=== PATIENT | male | born 1950 | race Caucasian/White ===

== ENCOUNTER → 2017-11-19 | Outpatient (CLI) | payer MEDICARE ==
--- NOTE | 2017-11-19 16:50 | XR ---
EXAMINATION: XR chest 2V DATE AND TIME: 11/19/2017 4:41 PM ORDERING PROVIDER: Ashlee Shaffer CLINICAL INDICATION: [id number] SOB TECHNIQUE: PA and lateral COMPARISON: 07/01/2012 DESCRIPTION: The overlying soft tissues are prominent and this limits accuracy, particularly over the lung bases. The lungs are clear. The pleural spaces are negative. The cardiac silhouette is not enla rged. The mediastinal and pleural silhouettes are unremarkable. The skeletal structures are intact wi thout focal findings. No acute soft tissue findings. IMPRESSION: NO ACUTE PROCESS.
== END | disposition home or self-care (01) ==
LOC: RADXRYALE 16:20
PROVIDERS: ATTEND Physician Assistant Medical
DX: R06.02 Shortness of breath (principal)
CPT/HCPCS: 71046

== ENCOUNTER → 2018-05-14 | Outpatient (CLI) | payer MEDICARE ==
--- NOTE | 2018-05-15 08:42 | XR ---
Abdomen HISTORY: Renal stones frontal view of the abdomen on 2 images correlated to prior abdomen 01/18/2013 Patient is post lap band. Lung bases are clear. Multiple calcifications are present within the pelvis as on prior. Sensitivity of the exam may be limited by patient body habitus, bowel gas. IMPRESSION: Indeterminate calcifications. Postop changes.
== END ==
LOC: RADXRMAIN 16:09
PROVIDERS: ATTEND Urology
DX: N20.2 Calculus of kidney with calculus of ureter (principal); Z98.890 Other specified postprocedural states
CPT/HCPCS: 74018

== ENCOUNTER → 2018-10-12 | Outpatient (CLI) | payer MEDICARE ==
[2018-10-12 20:03] LABS: ALT 49 U/L (10-49); AST 34 U/L (14-35); African American GFR (CKD) 72.6 (60.0-200.0); Albumin/Globulin Ratio 1.62 (1.60-3.17); Alkaline Phosphatase 141 U/L (41-126); BUN/Creat Ratio 11.67 Ratio (12.00-20.00); Calcium 9.8 mg/dL (8.7-10.3); Carbon Dioxide 21.1 mmol/L (21.6-31.8); Chloride 108 mmol/L (96-109); Cholesterol 217 mg/dL (0-200); Globulin 2.6 g/dL (1.6-3.3); Glucose 306 mg/dL (70-110); Potassium 4.5 mmol/L (3.5-5.5); Sodium 139 mmol/L (135-145); Total Bilirubin 0.5 mg/dL (0.3-1.2); Total Protein 6.8 g/dL (6.2-8.2)
== END | disposition home or self-care (01) ==
LOC: LABWHC1 13:34
PROVIDERS: ATTEND Internal Medicine Endocrinology, Diabetes & Metabolism
DX: E11.65 Type 2 diabetes mellitus with hyperglycemia (principal)
CPT/HCPCS: 36415; 80053; 80061; 82043; 82570; 84443

== ENCOUNTER → 2018-12-25 | Outpatient (CLI) | payer MEDICARE ==
--- NOTE | 2018-12-26 14:25 | XR ---
EXAMINATION TYPE: XR knee complete bilateral DATE OF EXAM: 12/25/2018 COMPARISON: Right knee 08/17/2014 HISTORY: M 25.561, M 25.562, M 25.551 TECHNIQUE: Three-view bilateral knees each FINDINGS: Right knee: There is narrowing of the medial compartment joint space. Small medial tibial p lateau spur is present. Medial femoral condylar spurring is present. Left knee: No acute fractures evident. No joint effusion is evident. Joint spaces appear preserved. IMPRESSION: 1. Mild osteoarthritic degenerative change medial compartment right knee. This is progressive. 2. Left knee is essentially within normal limits.
--- NOTE | 2018-12-26 14:26 | XR ---
EXAMINATION TYPE: XR Hip Complete RT DATE OF EXAM: 12/25/2018 COMPARISON: None HISTORY: Right hip pain TECHNIQUE: 2 view right hip FINDINGS: Cam deformity is evident. There is loss of the joint space. The femoral head articulates wi th the acetabulum. Some acetabular spurring is noted. IMPRESSION: 1. Moderate osteoarthritic degenerative change right hip. 2. Cam deformity of the right hip.
== END | disposition home or self-care (01) ==
LOC: RADXRYALE 16:31
PROVIDERS: ATTEND Family Medicine
DX: M17.0 Bilateral primary osteoarthritis of knee (principal); M16.11 Unilateral primary osteoarthritis, right hip; M21.851 Other specified acquired deformities of right thigh
CPT/HCPCS: 73502

== ENCOUNTER → 2019-01-12 | Outpatient (CLI) | payer MEDICARE ==
[2019-01-12 15:51] VITALS: BP 145/84; PULSE 70; RESP 16; TEMP 98.2
--- NOTE | 2019-01-12 17:35 | P.BASOAP ---
Subjective Progress Note Date: 01/12/19 Principal diagnosis: Morbid obesity Patient here today to discuss band adjustment. Patient has suffered with his weight since his last visit which was many years ago. Currently weight in the 350 range. He was is having is 500 at one point. Has episodes of dysphagia 1-2 times per week. Feels appropriately tight. No significant hunger issues. Patient being worked up for occult infection. Has intermittent episodes of significant elevation of his blood sugar. Thinks it may be dental in origin. Objective - Vital Signs Vital signs: Vital Signs Temp 98.2 F 01/12/19 15:48 Pulse 70 01/12/19 15:48 Resp 16 01/12/19 15:48 BP 145/84 01/12/19 15:48 Pulse Ox Intake & Output 01/11/19 01/12/19 01/12/19 18:59 06:59 18:59 Weight 159.665 kg - Exam Abdomen: Soft, nondistended, large pannus, small scarlike areas at the pannus consistent with mild panniculitis Assessment/Plan (1) Morbid obesity Narrative/Plan: Patient will known to our service. Would like to have his band evaluated. No plans for band adjustment given his intermittent episodes of dysphagia. Patient not interested in having the band loosened. Will check esophagogram. Patient will consider alternative surgical procedures in the interim. Plan: Date: 01/12/19 Initial Weight: Initial BMI: Current Weight: 159.665 kg Current BMI: Type of Surgery: Total Volume in Band: Previous Volume: Volume Removed: Volume Added: Band Size:
== END ==
LOC: BARWHC3 14:54
PROVIDERS: ATTEND Surgery
DX: E66.01 Morbid (severe) obesity due to excess calories (principal); Z68.43 Body mass index [BMI] 50.0-59.9, adult
CPT/HCPCS: 99211

== ENCOUNTER 2019-02-22 17:21 | Emergency (ER) | payer MEDICARE ==
[2019-02-22 17:38] VITALS: BP 136/91; TEMP 97.3
[2019-02-22] MEDS ORDERED: HYDROcodone/APAP 5-325MG 1 EACH TAB PO STA (18:00)
[2019-02-22] MEDS ORDERED: IPRATROPIUM-ALBUTEROL 3 ML NEB INHALATION STA (18:00)
--- NOTE | 2019-02-22 18:01 | ED ---
Fall HPI - General Chief Complaint: Fall Stated Complaint: fell downstairs Time Seen by Provider: 02/22/19 17:24 Source: EMS, RN notes reviewed, old records reviewed Mode of arrival: EMS Limitations: no limitations - History of Present Illness Initial Comments: This is a 68-year-old male the ER status post fall trip and fall on stairs landing on his back he did hit his head. Patient fell backwards and landed is brought in again did hit his head. His upper back area as well. Patient later the ground for a while maybe like an hour and was able to get up and move around. Patient comes in the ER with his family member, he is able to stand and bear weight he is significantly short of breath and feels like he's been doing with a recent episode of pneumonia or bronchitis. MD Complaint: fall -: hour(s) Fall From: standing, down stairs (#) (10) When Fall Occurred: 1-3 hours [employer] Fall Witnessed: yes, by family Place Fall Occurred: work Loss of Consciousness: none Prolonged Down Time?: no Symptoms Prior to Fall: none Location: head, back, pelvis, buttocks Severity: moderate Severity scale (1-10): 4 Quality: aching Context: tripped/slipped Associated Symptoms: denies - Related Data Home Medications Medication Instructions Recorded Confirmed Albuterol Sulfate [Proair Hfa] 2 puff INHALATION Q6HR PRN 05/04/15 01/12/19 Allopurinol [Zyloprim] 100 mg PO HS 05/04/15 01/12/19 Enalapril [Vasotec] 20 mg PO BID 05/04/15 01/12/19 Insulin NPH Human Isophane 0 unit SQ AC-TID PRN 05/04/15 01/12/19 [NovoLIN N] Insulin Regular, Human [NovoLIN R] 0 unit SQ AC-TID PRN 05/04/15 01/12/19 Insuln Asp Prt/Insulin Aspart 0 unit SQ AC-TID PRN 05/04/15 01/12/19 [NovoLOG MIX 70-30 VIAL] metFORMIN HCL 500 mg PO BID 05/04/15 01/12/19 Allergies Allergy/AdvReac Type Severity Reaction Status Date / Time levofloxacin [From Levaquin] Allergy Unknown Verified 01/12/19 15:58 Penicillins Allergy Rash/Hives Verified 01/12/19 15:58 Review of Systems ROS Statement: Those systems with pertinent positive or pertinent negative responses have been documented in the HPI. ROS Other: All systems not noted in ROS Statement are negative. Past Medical History Past Medical History: Diabetes Mellitus, Hypertension History of Any Multi-Drug Resistant Organisms: None Reported Past Surgical History: No Surgical Hx Reported Past Psychological History: No Psychological Hx Reported Smoking Status: Former smoker Past Alcohol Use History: None Reported Past Drug Use History: None Reported General Exam Limitations: no limitations General appearance: alert, in no apparent distress Head exam: Present: atraumatic, normocephalic, normal inspection Eye exam: Present: normal appearance, PERRL, EOMI. Absent: scleral icterus, conjunctival injection, periorbital swelling ENT exam: Present: normal exam, mucous membranes moist Neck exam: Present: normal inspection. Absent: tenderness, meningismus, lymphadenopathy Respiratory exam: Present: normal lung sounds bilaterally. Absent: respiratory distress, wheezes, rales, rhonchi, stridor Cardiovascular Exam: Present: regular rate, normal rhythm, normal heart sounds. Absent: systolic murmur, diastolic murmur, rubs, gallop, clicks GI/Abdominal exam: Present: soft, normal bowel sounds. Absent: distended, tenderness, guarding, rebound, rigid Extremities exam: Present: normal inspection, full ROM, normal capillary refill. Absent: tenderness, pedal edema, joint swelling, calf tenderness Back exam: Present: normal inspection Neurological exam: Present: alert, oriented X3, CN II-XII intact Psychiatric exam: Present: normal affect, normal mood Skin exam: Present: warm, dry, intact, normal color. Absent: rash Course Vital Signs 02/22/19 02/22/19 02/22/19 17:35 18:36 18:48 Temperature 97.3 F L Pulse Rate 83 73 75 Respiratory 16 16 16 Rate Blood Pressure 136/91 O2 Sat by Pulse 98 Oximetry - Reevaluation(s) Reevaluation #1: 02/22/19 18:11 Medical records reviewed Reevaluation #2: 02/22/19 20:07 patient has better pain control, able to stand and get dressed and now abole to ambulate. ok for discharge Medical Decision Making - Medical Decision Making 68 male SP slip and fall, back contusion, will discharge home, able to ambluate. No neuro deficits Disposition Clinical Impression: Fall, Morbid obesity, Severe back pain, Back contusion Disposition: HOME SELF-CARE Condition: Good Instructions (If sedation given, give patient instructions): Fall Prevention for Older Adults (ED), Back Pain (ED) Is patient prescribed a controlled substance at d/c from ED?: No Referrals: Jt Abbott DO [Primary Care Provider] - 1-2 days
[2019-02-22] MEDS ORDERED: MORPHINE SULFATE 4 MG/ML SYRINGE IM STA (18:26)
--- NOTE | 2019-02-22 19:36 | XR ---
EXAMINATION TYPE: XR chest 2V DATE OF EXAM: 02/22/2019 COMPARISON: NONE TECHNIQUE: PA and lateral views submitted. HISTORY: Pain FINDINGS: Technique limits the exam. Left lower lobe consolidation suggested. Hypertrophic and degenerative dario nges spine. Heart is enlarged. No sizable pneumothorax. IMPRESSION: 1. Left basilar atelectasis favored over pneumonia correlate clinically. 2. Cardiomegaly
--- NOTE | 2019-02-22 19:38 | XR ---
EXAM TYPE: LUMBAR SPINE X RAY SERIES COMPARISON: NONE HISTORY: Pain TECHNIQUE: 4 views are submitted. FINDINGS: Alignment is anatomic. The pedicles are intact. The transverse processes are intact. There is no s pondylolysis or spondylolisthesis. Hypertrophic changes are seen and there is multilevel mild degene rative disc disease with most marked findings at L5-S1. Facet arthropathy L5-S1. Arthropathy of the h ips greater on the right. LAP-BAND catheter noted. IMPRESSION: 1. Multilevel degenerative disc disease and hypertrophic changes. No compression deformities..
--- NOTE | 2019-02-22 19:39 | XR ---
EXAMINATION TYPE: XR pelvis AP view DATE OF EXAM: 02/22/2019 COMPARISON: NONE HISTORY: Pain Severe arthropathy of the right hip. Moderate to severe arthropathy left hip. SI joints symmetric. Vi sualized osseous structures grossly intact. IMPRESSION: 1. No acute fracture.
--- NOTE | 2019-02-22 19:45 | CT ---
EXAMINATION TYPE: CT brain seheba galeano DATE OF EXAM: 02/22/2019 COMPARISON: None HISTORY: Fall today with head and neck pain. CT DLP: 1990.3 mGycm Automated exposure control for dose reduction was used. TECHNIQUE: CT scan of the head and cervical spine are performed without contrast. FINDINGS: There is no acute intracranial hemorrhage, mass effect, or midline shift identified. The ventricles and sulci are within normal limits in size. Changes of chronic sinusitis noted. Intracran ial atherosclerotic changes are seen. Assessment spinal canal limited technique and resolution. There is multilevel degenerative disc disea se with hypertrophic spurring and posterior spondylosis with the most marked findings at C5-6 and C6- C7. Multilevel foraminal encroachment seen. No Canal stenosis not excluded. No acute fracture. IMPRESSION: 1. There is no acute fracture or dislocation evident in the cervical spine. 2. No acute intracranial hemorrhage, mass effect, or midline shift is seen.
[2019-02-22 20:15] VITALS: PULSE 78; RESP 18
== END 2019-02-22 20:26 | disposition home or self-care (01) ==
LOC: EC 17:21
DX: S30.0XXA Contusion of lower back and pelvis, initial encounter (principal); S20.229A Contusion of unspecified back wall of thorax, initial encounter; E66.01 Morbid (severe) obesity due to excess calories; S09.90XA Unspecified injury of head, initial encounter; R06.02 Shortness of breath; E11.9 Type 2 diabetes mellitus without complications; I10 Essential (primary) hypertension; Z87.891 Personal history of nicotine dependence; Z88.0 Allergy status to penicillin; Z88.1 Allergy status to other antibiotic agents; Z79.4 Long term (current) use of insulin; Z79.899 Other long term (current) drug therapy; Z68.42 Body mass index [BMI] 45.0-49.9, adult; W10.9XXA Fall (on) (from) unspecified stairs and steps, initial encounter; Y92.69 Other specified industrial and construction area as the place of occurrence of the external cause
CPT/HCPCS: 94640; 72110; 72170; 71046; 72125; 70450; 99284; 96372; J2270

== ENCOUNTER → 2019-04-05 | Outpatient (CLI) | payer MEDICARE ==
--- NOTE | 2019-04-05 14:47 | XR ---
2 view abdomen HISTORY: Abdominal pain and constipation 2 views the abdomen on 3 images And correlation to prior abdomen 05/14/2018 There is a lap band in place. No evident pneumoperitoneum. There are air-fluid levels without bowel d istention. Degenerative disc changes are noted in the visualized spine. Probable vascular calcificati ons within the pelvis. Osteoarthritic changes are noted in the hips. Correlate to exclude femoral zahraa tabular impingement. Impression: Correlate for ileus or enteritis. Additional findings above.
== END | disposition home or self-care (01) ==
LOC: RADXRYALE 11:31
PROVIDERS: ATTEND Physician Assistant Medical
DX: K59.00 Constipation, unspecified (principal); R10.84 Generalized abdominal pain; Z98.84 Bariatric surgery status
CPT/HCPCS: 74019

== ENCOUNTER → 2019-04-05 | Outpatient (CLI) | payer MEDICARE ==
--- NOTE | 2019-04-05 17:40 | CT ---
EXAMINATION TYPE: CT abdomen pelvis wo/w con DATE OF EXAM: 04/05/2019 COMPARISON: 12/06/2011 HISTORY: abdominal pain and constipation CT DLP: 7317.5 mGycm Automated exposure control for dose reduction was used. CONTRAST: Performed with IV Contrast, patient injected with 100 mL of Isovue 300. The lung bases are clear of infiltrate. There is no pleural effusion. There is gastric sleeve at the gastric fundus. Liver spleen pancreas gallbladder appear normal. Bile ducts are not dilated. There is no adrenal mass. Kidneys have normal size and contour. There is 2 cm cortical cyst lower rashida e left kidney. Ureters are not dilated. There is no retroperitoneal adenopathy. Bladder distends smoo thly. There is no inguinal hernia. There are several diverticula in the sigmoid colon. There is no ev idence of a pelvic mass. The appendix appears normal. There is no mesenteric edema. There is no ascit es or free air. There is no hydronephrosis. There is 10% anterior wedging of L1 vertebra that appears old. Bony pelvis is intact. IMPRESSION: No renal stone or obstruction. There is clearing of the large calculus at the left renal pelvis izabel red to old exam. Normal appendix. No evidence of constipation. Mild sigmoid diverticulosis.
== END | disposition home or self-care (01) ==
LOC: RADCTMAIN 15:02
PROVIDERS: ATTEND Physician Assistant Medical
DX: K57.30 Diverticulosis of large intestine without perforation or abscess without bleeding (principal); N20.0 Calculus of kidney
CPT/HCPCS: 82565; 84520; 74178; 36415; Q9967

== ENCOUNTER → 2019-07-08 | Outpatient (CLI) | payer MEDICARE ==
--- NOTE | 2019-07-08 16:59 | CT ---
EXAMINATION TYPE: CT hip RT wo con DATE OF EXAM: 07/08/2019 COMPARISON: Right hip x-rays dated 12/25/[address] abdomen pelvis dated 04/05/2019 HISTORY: RT hip pain. Pt states several past traumas to RT hip CT DLP: 879 mGycm Automated exposure control for dose reduction was used. TECHNIQUE: Contiguous axial CT slices of the right hip were obtained and soft tissue and bone algorit hm. Axial and sagittal images were reformatted. 3-D images of the right hip were created on a [employer] workstation and submitted for review. FINDINGS: There is a subtle cam deformity of the lateral femoral head neck junction marked on axial s eries 3 image 47. There is cephalad narrowing of the femoral acetabular joint with mild opposing surf zahraa sclerosis. There are small marginal osteophytes of both the acetabulum and femur. Subtle punctate subchondral cysts are present of the acetabular sourcil. No acute displaced rib fracture is seen. Os seous mineralization is within normal limits for the patient's age. Moderate atherosclerosis of the right common iliac artery and its branches is seen. Hip girdle muscul ature appears grossly unremarkable on CT. Labrum is not visualized on CT. IMPRESSION: 1. Moderate right femoral acetabular arthropathy with cephalad narrowing of the joint space, opposing surface sclerosis, few subchondral cysts, and marginal osteophytes. This may be posttraumatic arthro kelly given the patient's history. 2. Very subtle cam deformity of the lateral femoral head neck junction, which can predispose this pat ient to femoral acetabular impingement syndrome. 3. Moderate atherosclerosis of the right common iliac artery and its branches.
== END | disposition home or self-care (01) ==
LOC: RADCTMAIN 15:09
PROVIDERS: ATTEND Orthopaedic Surgery
DX: M12.851 Other specific arthropathies, not elsewhere classified, right hip (principal); M25.851 Other specified joint disorders, right hip; M24.151 Other articular cartilage disorders, right hip; M25.751 Osteophyte, right hip; M21.851 Other specified acquired deformities of right thigh; I70.8 Atherosclerosis of other arteries; E78.5 Hyperlipidemia, unspecified; I10 Essential (primary) hypertension

== ENCOUNTER 2019-12-21 16:32 | Inpatient (IN) | payer MEDICARE ==
[2019-12-21] MEDS ORDERED: ASPIRIN 81 MG PO STA (16:59)
[2019-12-21] MEDS ORDERED: IPRATROPIUM-ALBUTEROL 3 ML NEB INHALATION STA (17:00)
[2019-12-21] MEDS ORDERED: ACETAMINOPHEN TAB 500 MG TAB PO STA (17:00)
[2019-12-21] MEDS ORDERED: cefTRIAXone IN SWFI 1,000 MG/10 ML SYRINGE IVP STA (17:01)
[2019-12-21 17:42] LABS: Basophils # (A) 0.1 k/uL (0-0.2); Basophils % (A) 0 %; Eosinophils # (A) 0.3 k/uL (0-0.7); Eosinophils % (A) 1 %; HGB 13.7 gm/dL (13.0-17.5); Lymphocytes # (A) 0.8 k/uL (1.0-4.8); Lymphocytes % (A) 3 %; MCH 29.1 pg (25.0-35.0); MCHC 32.7 g/dL (31.0-37.0); Mean Platelet Volume 7.3; Monocytes % (A) 5 %; Neutrophils # (A) 20.1 k/uL (1.3-7.7); Neutrophils % (A) 90 %; Platelet Count 208 k/uL (150-450); RBC 4.72 m/uL (4.30-5.90); RDW 13.6 % (11.5-15.5); WBC 22.5 k/uL (3.8-10.6)
[2019-12-21 17:55] LABS: Calcium 9.5 mg/dL (8.4-10.2); Magnesium 1.6 mg/dL (1.6-2.3); Potassium 4.4 mmol/L (3.5-5.1); Total Bilirubin 0.8 mg/dL (0.2-1.3); Total Protein 6.9 g/dL (6.3-8.2)
--- NOTE | 2019-12-21 18:12 | XR ---
EXAMINATION TYPE: XR chest 2V DATE OF EXAM: 12/21/2019 COMPARISON: 06/28/2019 HISTORY: Short of breath TECHNIQUE: 2 views FINDINGS: There is no heart failure nor confluent pneumonic infiltrate. Costophrenic angles are clear . There are no hilar masses. Heart size is normal. Lung markings are slightly increased. IMPRESSION: No active cardiopulmonary disease. No adverse change compared to old exam. Lung markings increased slightly compared to old exam but no heart failure.
[2019-12-21] MEDS: SODIUM CHLORIDE 0.9% 1,000 ML IV SCH (18:17)
[2019-12-21] MEDS ORDERED: SODIUM CHLORIDE 0.9% 1,000 ML IV ONE (18:32)
--- NOTE | 2019-12-21 19:05 | ED ---
General Adult HPI - General Source: patient, RN notes reviewed, old records reviewed Mode of arrival: ambulatory Limitations: no limitations <Keshawn Chiu - Last Filed: 12/21/19 19:11> <Hunter Layne - Last Filed: 12/21/19 19:34> - General Chief complaint: Weakness Stated complaint: Dizziness Time Seen by Provider: 12/21/19 16:47 - History of Present Illness Initial comments: 69-year-old male patient presents to ED with chief complaint of fevers and chills productive cough. Patient reports that he also has some redness to the left lower leg. Patient reports this started within the last 24 hours. He reports that a few weeks ago he had a bug bite to his left leg. He denies ever seeing any sort of insect or tick on him. He reports that he had some redness of his primary care provider treated with an antibiotic. Patient reports that the redness has returned now. Patient reports that he's also been having some dysuria. He denies any concern for STI's. Denies any other acute complaints. Systemic: Pt denies fatigue, rash. Pt denies weakness, night sweats, weight loss. Neuro: Pt denies headache, visual disturbances, syncope or pre-syncope. HEENT: Pt denies ocular discharge or irritation, otalgia, rhinorrhea, pharyngitis or notable lymphadenopathy. Cardiopulmonary: Pt denies chest pain, heart palpitations, dyspnea on exertion. Abdominal/GI: Pt denies abdominal pain, n/v/d. : Denies new onset urinary or bowel incontinence. MSK: Pt denies myalgia, loss of strength or function in extremities. Neuro: Pt denies new onset weakness, paresthesias. (Keshawn Chiu) - Related Data Home Medications Medication Instructions Recorded Confirmed Albuterol Sulfate [Proair Hfa] 2 puff INHALATION Q6HR PRN 05/04/15 01/12/19 Allopurinol [Zyloprim] 100 mg PO HS 05/04/15 01/12/19 Enalapril [Vasotec] 20 mg PO BID 05/04/15 01/12/19 Insulin NPH Human Isophane 0 unit SQ AC-TID PRN 05/04/15 01/12/19 [NovoLIN N] Insulin Regular, Human [NovoLIN R] 0 unit SQ AC-TID PRN 05/04/15 01/12/19 Insuln Asp Prt/Insulin Aspart 0 unit SQ AC-TID PRN 05/04/15 01/12/19 [NovoLOG MIX 70-30 VIAL] metFORMIN HCL 500 mg PO BID 05/04/15 01/12/19 Allergies Allergy/AdvReac Type Severity Reaction Status Date / Time levofloxacin [From Levaquin] Allergy Unknown Verified 01/12/19 15:58 Penicillins Allergy Rash/Hives Verified 01/12/19 15:58 Review of Systems ROS Other: All systems not noted in ROS Statement are negative. <Keshawn Chiu - Last Filed: 12/21/19 19:11> ROS Other: All systems not noted in ROS Statement are negative. <Hunter Layne - Last Filed: 12/21/19 19:34> ROS Statement: Those systems with pertinent positive or pertinent negative responses have been documented in the HPI. Past Medical History Past Medical History: Diabetes Mellitus, Hypertension History of Any Multi-Drug Resistant Organisms: None Reported Past Surgical History: No Surgical Hx Reported Past Psychological History: No Psychological Hx Reported Smoking Status: Never smoker Past Alcohol Use History: None Reported Past Drug Use History: None Reported <Keshawn Chiu - Last Filed: 12/21/19 19:11> General Exam Limitations: no limitations <Keshawn Chiu - Last Filed: 12/21/19 19:11> - General Exam Comments Initial Comments: Constitutional: NAD, AOX3, Pt has pleasant affect. HEENT: NC/AT, trachea midline, neck supple, no lymphadenopathy. External ears appear normal, without discharge. Mucous membranes moist. Eyes PERRLA, EOM i ntact. There is no scleral icterus. No pallor noted. Cardiopulmonary: RRR, no murmurs, rubs or gallops, no JVD noted. Mild wheezing noted in anterior lung corbin. No peripheral edema. Abdominal exam: Abdomen soft and non-distended. Abdomen non-tender to palpation in all 4 quadrants. Bowel sounds active in LLQ. No hepatosplenomegaly. No ecchymosis Neuro: CN II-XII grossly intact. No nuchal rigidity. No raccon eyes, no muñoz sign, no hemotympanum. No cervical spinal tenderness. MSK: Mild amount of erythema to left anterior lower extremity. No posterior calf tenderness bilaterally, homans sign negative bilaterally. Posterior tibialis and radial pulse +2 bilaterally. Sensation intact in upper and lower extremities. Full active ROM in upper and lower extremities, 5/5 stregnth. (Keshawn Chiu) Course <Hunter Layne - Last Filed: 12/21/19 19:34> Vital Signs 12/21/19 12/21/19 12/21/19 16:41 17:49 17:55 Temperature 101.1 F H Pulse Rate 100 82 85 Respiratory 20 18 18 Rate Blood Pressure 118/55 O2 Sat by Pulse 99 Oximetry 12/21/19 18:48 Temperature Pulse Rate Respiratory 20 Rate Blood Pressure O2 Sat by Pulse Oximetry - Reevaluation(s) Reevaluation #1: 12/21/19 19:34 Patient does meet sepsis criteria diagnosed in 0. Blood culture and lactic acid and IV antibiotics will be ordered. (Hunter Layne) Medical Decision Making - Lab Data Result diagrams: 12/21/19 17:23 12/21/19 17:23 - EKG Data -: EKG Interpreted by Me (and Dr. Layne ) <Keshawn Chiu - Last Filed: 12/21/19 19:11> - Lab Data Result diagrams: 12/21/19 17:23 12/21/19 17:23 - Radiology Data Radiology results: image reviewed (Chest x-ray shows slight increased lung markings.) <Hunter Layne - Last Filed: 12/21/19 19:34> - Medical Decision Making 69 year old male patient presents to ED for evaluation of fever, cough, congestion, dysuria, lower extremity cellulitis. symptoms mostly within the last 24 hours. Patient signed out to Dr. Layne pending final disposition. (Keshawn Chiu) Patient reevaluated by myself, Dr. Layne. I agree with PA findings. This includes diagnostic interpretation and treatment plan. Lungs with wheezing and rhonchi. Patient does have cellulitis left anterior leg. Patient is updated on plan. Dr. Ly has been paged for admission covering for Dr. Vinny Baker. (Hunter Layne) - Lab Data Lab Results 12/21/19 12/21/19 12/21/19 Range/Units 17:23 17:23 17:23 WBC 22.5 H (3.8-10.6) k/uL RBC 4.72 (4.30-5.90) m/uL Hgb 13.7 (13.0-17.5) gm/dL Hct 42.0 (39.0-53.0) % MCV 89.0 (80.0-100.0) fL MCH 29.1 (25.0-35.0) pg MCHC 32.7 (31.0-37.0) g/dL RDW 13.6 (11.5-15.5) % Plt Count 208 (150-450) k/uL Neutrophils % 90 % Lymphocytes % 3 % Monocytes % 5 % Eosinophils % 1 % Basophils % 0 % Neutrophils # 20.1 H (1.3-7.7) k/uL Lymphocytes # 0.8 L (1.0-4.8) k/uL Monocytes # 1.0 (0-1.0) k/uL Eosinophils # 0.3 (0-0.7) k/uL Basophils # 0.1 (0-0.2) k/uL Sodium 136 L (137-145) mmol/L Potassium 4.4 (3.5-5.1) mmol/L Chloride 103 (98-107) mmol/L Carbon Dioxide 24 (22-30) mmol/L Anion Gap 9 mmol/L BUN 18 (9-20) mg/dL Creatinine 1.04 (0.66-1.25) mg/dL Est GFR (CKD-EPI)AfAm 86 (>60 ml/min/1.73 sqM) Est GFR (CKD-EPI)NonAf 74 (>60 ml/min/1.73 sqM) Glucose 210 H (74-99) mg/dL Plasma Lactic Acid Harvinder 2.5 H* (0.7-2.0) mmol/L Calcium 9.5 (8.4-10.2) mg/dL Magnesium 1.6 (1.6-2.3) mg/dL Total Bilirubin 0.8 (0.2-1.3) mg/dL AST 36 (17-59) U/L ALT 42 (4-49) U/L Alkaline Phosphatase 116 (38-126) U/L Troponin I (0.000-0.034) ng/mL Total Protein 6.9 (6.3-8.2) g/dL Albumin 4.0 (3.5-5.0) g/dL Urine Color Urine Appearance (Clear) Urine pH (5.0-8.0) Ur Specific [place] (1.001-1.035) Urine Protein (Negative) Urine Glucose (UA) (Negative) Urine Ketones (Negative) Urine Blood (Negative) Urine Nitrite (Negative) Urine Bilirubin (Negative) Urine Urobilinogen (<2.0) mg/dL Ur Leukocyte Esterase (Negative) Urine RBC (0-5) /hpf Urine WBC (0-5) /hpf Ur Squamous Epith Cells (0-4) /hpf Urine Bacteria (None) /hpf Hyaline Casts (0-2) /lpf Urine Mucus (None) /hpf 12/21/19 12/21/19 Range/Units 17:23 17:32 WBC (3.8-10.6) k/uL RBC (4.30-5.90) m/uL Hgb (13.0-17.5) gm/dL Hct (39.0-53.0) % MCV (80.0-100.0) fL MCH (25.0-35.0) pg MCHC (31.0-37.0) g/dL RDW (11.5-15.5) % Plt Count (150-450) k/uL Neutrophils % % Lymphocytes % % Monocytes % % Eosinophils % % Basophils % % Neutrophils # (1.3-7.7) k/uL Lymphocytes # (1.0-4.8) k/uL Monocytes # (0-1.0) k/uL Eosinophils # (0-0.7) k/uL Basophils # (0-0.2) k/uL Sodium (137-145) mmol/L Potassium (3.5-5.1) mmol/L Chloride (98-107) mmol/L Carbon Dioxide (22-30) mmol/L Anion Gap mmol/L BUN (9-20) mg/dL Creatinine (0.66-1.25) mg/dL Est GFR (CKD-EPI)AfAm (>60 ml/min/1.73 sqM) Est GFR (CKD-EPI)NonAf (>60 ml/min/1.73 sqM) Glucose (74-99) mg/dL Plasma Lactic Acid Harvinder (0.7-2.0) mmol/L Calcium (8.4-10.2) mg/dL Magnesium (1.6-2.3) mg/dL Total Bilirubin (0.2-1.3) mg/dL AST (17-59) U/L ALT (4-49) U/L Alkaline Phosphatase (38-126) U/L Troponin I <0.012 (0.000-0.034) ng/mL Total Protein (6.3-8.2) g/dL Albumin (3.5-5.0) g/dL Urine Color Dark Yellow Urine Appearance Cloudy (Clear) Urine pH 5.0 (5.0-8.0) Ur Specific [place] 1.021 (1.001-1.035) Urine Protein 1+ H (Negative) Urine Glucose (UA) Negative (Negative) Urine Ketones Trace H (Negative) Urine Blood Negative (Negative) Urine Nitrite Negative (Negative) Urine Bilirubin Negative (Negative) Urine Urobilinogen <2.0 (<2.0) mg/dL Ur Leukocyte Esterase Negative (Negative) Urine RBC 2 (0-5) /hpf Urine WBC 2 (0-5) /hpf Ur Squamous Epith Cells <1 (0-4) /hpf Urine Bacteria Rare H (None) /hpf Hyaline Casts 10 H (0-2) /lpf Urine Mucus Few H (None) /hpf - EKG Data EKG Comments: Ventricular rate 106, purulent full 136, QRS 148, QT/QTC 392/520, sinus tachycardia, right bundle branch block. No concern for acute ischemia at this time. (Keshawn Chiu) Disposition <Keshawn Chiu - Last Filed: 12/21/19 19:11> Is patient prescribed a controlled substance at d/c from ED?: No Decision Time: 19:32 <Hunter Layne - Last Filed: 12/21/19 19:34> Clinical Impression: COPD (chronic obstructive pulmonary disease), Sepsis, Cellulitis Disposition: ADMITTED IP TO THIS HOSP Condition: Serious Referrals: Jt Abbott DO [Primary Care Provider] - 1-2 days
[2019-12-21 19:21] LABS: Appearance,Urine Cloudy (Clear); Bacteria,Urine Rare /hpf; Bilirubin,Urine Negative (Negative); Blood,Urine Negative (Negative); Color,Urine Dark Yellow; Glucose,Urine (UA) Negative (Negative); Hyaline Casts,Urine 10 /lpf (0-2); Ketones,Urine Trace (Negative); Leukocyte Esterase,Urine Negative (Negative); Mucus,Urine Few /hpf; Nitrite,Urine Negative (Negative); Protein,Urine 1+ (Negative); RBC,Urine 2 /hpf (0-5); Specific Gravity,Urine 1.021 (1.001-1.035); Squamous Epithelial Cell,Urine <1 /hpf (0-4); Urobilinogen,Urine <2.0 mg/dL (<2.0); WBC,Urine 2 /hpf (0-5)
[2019-12-21] MEDS ORDERED: AZITHROMYCIN 500 MG in SODIUM CHLORIDE 0.9% 250 ML IVPB STA (19:34)
[2019-12-21] MEDS ORDERED: PNEUMONIA PROTOCOL UTILIZED 1 EACH MISC PO PRN (19:34)
[2019-12-21] MEDS ORDERED: IPRATROPIUM-ALBUTEROL 3 ML NEB INHALATION PRN (19:34)
[2019-12-21] MEDS: IPRATROPIUM-ALBUTEROL 3 ML NEB INHALATION SCH (20:38)
[2019-12-21 21:28] LABS: Glucose,Whole Blood 326 mg/dL (75-99)
[2019-12-21] MEDS ORDERED: COLCHICINE 0.6 MG EACH PO PRN (22:00)
[2019-12-21] MEDS ORDERED: ALBUTEROL HFA INHALER INHALATION PRN (22:00)
[2019-12-21] MEDS: metFORMIN 500 MG TAB PO SCH (22:27)
[2019-12-21] MEDS: lisinopriL 20 MG TAB PO SCH (22:27)
[2019-12-21] MEDS: allopurinoL 300 MG TAB PO SCH (22:28)
[2019-12-21] MEDS: INSULIN DETEMIR (LEVEMIR) 100 UNIT/ML SYR SQ SCH (22:29)
[2019-12-22] MEDS: traMADol 50 MG TAB PO PRN (00:15)
[2019-12-22] MEDS ORDERED: ACETAMINOPHEN TAB 325 MG TAB PO STA (00:16)
[2019-12-22] MEDS: methylPREDNISolone SOD SUCCI 125 MG/2 ML VIAL IV SCH ×2 (00:17→06:55)
[2019-12-22 05:58] LABS: Glucose,Whole Blood 224 mg/dL (75-99)
[2019-12-22] MEDS: SODIUM CHLORIDE 0.9% 1,000 ML IV SCH ×2 (06:56→07:50)
[2019-12-22] MEDS: metFORMIN 500 MG TAB PO SCH ×2 (07:47→21:13)
[2019-12-22] MEDS: INSULIN ASPART (NovoLOG) 100 UNIT/ML VIAL SQ SCH ×4 (07:48→21:14)
[2019-12-22] MEDS: lisinopriL 20 MG TAB PO SCH ×2 (07:48→21:14)
[2019-12-22] MEDS: IPRATROPIUM-ALBUTEROL 3 ML NEB INHALATION SCH ×4 (07:58→20:25)
[2019-12-22] MEDS ORDERED: AZITHROMYCIN 500 MG TAB PO SCH (09:00)
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
--- NOTE | 2019-12-22 11:03 | XR ---
EXAMINATION TYPE: XR chest 2V DATE OF EXAM: 12/22/2019 CLINICAL HISTORY: Pneumonia TECHNIQUE: Frontal and lateral views of the chest are obtained. COMPARISON: 12/21/2019 chest radiograph FINDINGS: The cardiomediastinal silhouette is within normal limits for size. Pulmonary vasculature i s congested with pulmonary edema. New small left pleural effusion. No pneumothorax. IMPRESSION: New small left pleural effusion. Redemonstrated pulmonary edema.
[2019-12-22 11:39] LABS: Glucose,Whole Blood 421 mg/dL (75-99)
--- NOTE | 2019-12-22 11:43 | P.CNPUL ---
History of Present Illness Consult date: 12/22/19 Reason for consult: cough, other (Fever and cellulitis) Chief complaint: Fever cough difficult urination and redness of left lower extremity History of present illness: This is a 69-year-old white male, lifelong nonsmoker, known to have history of diabetes, hypertension, and remote history of Lyme's disease. Patient is also known to have history of enlarged prostate, came into the hospital with 2 days history of fever, cough, difficulty urinating, and redness of the left lower extremity. Patient was recently seen by his primary care physician for his left lower extremity cellulitis, placed on Keflex, and after few day, the redness of the left lower extremity improved. However after he finished the antibiotics course, the redness came back. Patient denies any trauma to the leg. Denies any history of thromboembolic disease. Upon presentation to the ER, patient was noted to have a temp as high as 101.1, and his temperature today is 98.7. In addition to his fever, patient describes productive cough with whitish phlegm, no wheezing, no chest pain, but he does have some mild shortness of breath. O2 saturation on room air was noted to be 90%. Patient also describes some difficulty in urination, but no hematuria, patient also describes history of Lyme disease over 20 years ago. Review of Systems CONSTITUTIONAL: Mostly symptoms of fever, no weight loss. HEENT: Negative. CARDIOVASCULAR: Negative PULMONARY: Mostly symptoms of cough, and mild shortness of breath. GASTROINTESTINAL: Negative NEUROLOGICAL: Negative HEMATOLOGICAL: Negative no history of clotting bleeding or bruising GENITOURINARY: As noted in HPI, mostly difficulty urinating, urinary retention symptoms, and sometimes painful urination. But no hematuria.. MUSCULOSKELETAL/RHEUMATOLOGICAL: Negative. ENDOCRINE: Denies any heat or cold intolerance. Skin: As noted in HPI mostly recurrent cellulitis of the anterior aspect of the left lower extremity. Past Medical History Past Medical History: Heart Failure, COPD, Diabetes Mellitus, Hypertension Additional Past Medical History / Comment(s): Lyme Disease History of Any Multi-Drug Resistant Organisms: None Reported Past Surgical History: Orthopedic Surgery Additional Past Surgical History / Comment(s): right knee, lap abnd surgery, colonoscopy, kidney stones Past Anesthesia/Blood Transfusion Reactions: No Reported Reaction Past Psychological History: No Psychological Hx Reported Smoking Status: Never smoker Past Alcohol Use History: None Reported Past Drug Use History: None Reported Medications and Allergies Home Medications Medication Instructions Recorded Confirmed Type Albuterol Sulfate [Proair Hfa] 2 puff INHALATION RT-QID PRN 05/04/15 12/21/19 History Enalapril [Vasotec] 20 mg PO BID 05/04/15 12/21/19 History Insuln Asp Prt/Insulin Aspart See Protocol SQ AC-TID 05/04/15 12/21/19 History [NovoLOG MIX 70-30 VIAL] Allopurinol [Zyloprim] 300 mg PO HS 12/21/19 12/21/19 History Colchicine [Colcrys] 0.6 mg PO BID PRN 12/21/19 12/21/19 History Dulaglutide [Trulicity] 1.5 mg SQ TH 12/21/19 12/21/19 History Insulin Glargine,Hum.rec.anlog 150 units SQ HS 12/21/19 12/21/19 History [Toujeo Solostar] metFORMIN HCL [metFORMIN HCL ER] 500 mg PO BID 12/21/19 12/21/19 History traMADol HCL [Ultram] 50 mg PO BID PRN 12/21/19 12/21/19 History Allergies Allergy/AdvReac Type Severity Reaction Status Date / Time levofloxacin [From Levaquin] Allergy Unknown Verified 12/21/19 19:52 Penicillins Allergy Rash/Hives Verified 12/21/19 19:52 Physical Exam Vitals: Vital Signs Temp Pulse Pulse Resp BP BP Pulse Ox 12/22/19 09:00 16 12/22/19 08:12 84 12/22/19 08:01 98.7 F 84 16 121/71 90 L 12/22/19 07:58 84 12/22/19 02:45 98.4 F 80 16 125/59 12/22/19 01:59 99 18 12/22/19 01:00 101.3 F H 110 H 20 137/67 94 L 12/21/19 20:50 18 12/21/19 20:49 86 18 12/21/19 20:40 97.9 F 99 16 117/63 99 12/21/19 20:39 85 18 12/21/19 20:02 100.4 F H 62 22 136/80 97 12/21/19 18:48 20 09/01/20 17:55 85 18 12/21/19 17:49 82 18 12/21/19 16:41 101.1 F H 100 20 118/55 99 Intake and Output 12/21/19 12/22/19 12/22/19 22:59 06:59 14:59 Intake Total 240 Output Total 201 603 300 Balance 39 -603 -300 Intake: Oral 240 Output: Urine 200 600 300 Stool 1 3 Other: # Voids 1 1 Weight 156.489 kg Physical Exam: Revealed a 69-year-old white male obese, in no distress. Head:, Atraumatic, normocephalic. HEENT:[Neck is supple.] [No neck masses.] [No thyromegaly.] [No JVD.] PERRLA, EOMI, neck this. Chest: [Clear throughout, no crackles, no rhonchi, no wheezes.] Cardiac Exam: [Normal S1 and S2, no S3 gallop, no murmur.] Abdomen: Obese, [Soft, nontender, no megaly, no rebound, no guarding, normal bowel sounds.] Extremities: [No clubbing, no edema, no cyanosis.] There is an area of cellulitis and mild superficial ulceration over the anterior aspect of the left leg. Over anterior tibial area. Neurological Exam: [No focal neurologic deficit.] Alert and oriented 3, no gross focal neurologic deficits. Skin: Areas of redness and erythema over the left lower extremity anterior tibial aspect. Psychiatric: Normal mood affect and normal mental status examination. Lymphatics: No cervical lymphadenopathy or supraclavicular lymphadenopathy. Results - Laboratory Findings CBC and BMP: 12/21/19 17:23 12/21/19 17:23 Abnormal lab findings: Abnormal Labs 12/21/19 12/21/19 12/21/19 17:23 17:23 17:23 WBC 22.5 H Neutrophils # 20.1 H Lymphocytes # 0.8 L Sodium 136 L Glucose 210 H POC Glucose (mg/dL) Plasma Lactic Acid Harvinder 2.5 H* Urine Protein Urine Ketones Urine Bacteria Hyaline Casts Urine Mucus 12/21/19 12/21/19 12/21/19 17:32 20:55 21:26 WBC Neutrophils # Lymphocytes # Sodium Glucose POC Glucose (mg/dL) 326 H Plasma Lactic Acid Harvinder 3.0 H* Urine Protein 1+ H Urine Ketones Trace H Urine Bacteria Rare H Hyaline Casts 10 H Urine Mucus Few H 12/22/19 12/22/19 00:03 05:56 WBC Neutrophils # Lymphocytes # Sodium Glucose POC Glucose (mg/dL) 224 H Plasma Lactic Acid Harvinder 2.9 H* Urine Protein Urine Ketones Urine Bacteria Hyaline Casts Urine Mucus - Diagnostic Findings Chest x-ray: image reviewed (Chest x-ray is basically unremarkable. No evidence of infiltrate no evidence of pneumonia and no evidence of congestive heart failure.) Assessment and Plan Assessment: Impression: Acute febrile illness Acute cellulitis of the left lower extremity. Acute tracheobronchitis, no evidence of COPD exacerbation. Urinary retention most likely secondary to enlarged prostate, but no clear-cut evidence of urinary tract infection based on the urinalysis. Culture is pending. History of left renal colic. Benign essential hypertension. Remote history of Lyme's disease over 20 years ago, treated. Morbid obesity. Recommendation: Continue antibiotics, patient is now on Rocephin. And Zithromax. Continue bronchodilators although no clear-cut evidence of COPD exacerbation on physical examination. Check urine cultures Check angiotensin-converting enzyme level. Check blood cultures We will continue to monitor. Time with Patient: Greater than 30
--- NOTE | 2019-12-22 12:34 | US ---
EXAMINATION TYPE: US venous doppler duplex LE DATE OF EXAM: 12/22/2019 10:47 AM COMPARISON: NONE CLINICAL HISTORY: Rule out DVT. Edema SIDE PERFORMED: Bilateral TECHNIQUE: The lower extremity deep venous system is examined utilizing real time linear array sonog fco with graded compression, doppler sonography and color-flow sonography. VESSELS IMAGED: External Iliac Vein (EIV) Common Femoral Vein Deep Femoral Vein Greater Saphenous Vein * Femoral Vein Popliteal Vein Small Saphenous Vein * Proximal Calf Veins (* superficial vessels) Right Leg: Negative for DVT. There is normal flow, compressibility, and vascular waveforms. Poplitea l fossa cyst visualized measuring 4.7 x 1.3 x 3.1 centimeters. Left Leg: Negative for DVT. There is normal flow, compressibility, and vascular waveforms. IMPRESSION: 1. No deep venous thrombosis of the bilateral lower extremity. 2. Right sided 4.7 cm popliteal fossa cyst.
[2019-12-22 16:40] LABS: Glucose,Whole Blood 413 mg/dL (75-99)
[2019-12-22] MEDS ORDERED: INSULIN ASPART (NovoLOG) 100 UNIT/ML VIAL SQ ONE (17:45)
[2019-12-22] MEDS ORDERED: FUROSEMIDE 10 MG/ML 4 ML VIAL IV STA (18:21)
[2019-12-22 20:37] LABS: Glucose,Whole Blood 388 mg/dL (75-99)
[2019-12-22] MEDS: HEPARIN SODIUM,PORCINE 5,000 UNIT/ML 1 ML VIAL SQ SCH (21:13)
[2019-12-22] MEDS: FAMOTIDINE 20 MG/2 ML VIAL IV SCH (21:13)
[2019-12-22] MEDS: allopurinoL 300 MG TAB PO SCH (21:13)
[2019-12-22] MEDS: INSULIN DETEMIR (LEVEMIR) 100 UNIT/ML SYR SQ SCH (21:14)
[2019-12-23] MEDS: traMADol 50 MG TAB PO PRN ×2 (03:03→17:18)
[2019-12-23 06:20] LABS: Glucose,Whole Blood 210 mg/dL (75-99)
[2019-12-23 06:51] LABS: Basophils % (A) 0 %; Eosinophils % (A) 0 %; HCT 41.1 % (39.0-53.0); HGB 13.5 gm/dL (13.0-17.5); Lymphocytes % (A) 10 %; MCH 29.6 pg (25.0-35.0); MCHC 32.8 g/dL (31.0-37.0); MCV 90.3 fL (80.0-100.0); Mean Platelet Volume 7.7; Monocytes # (A) 1.2 k/uL (0-1.0); Monocytes % (A) 6 %; Neutrophils # (A) 16.7 k/uL (1.3-7.7); Neutrophils % (A) 83 %; Platelet Count 227 k/uL (150-450); RBC 4.55 m/uL (4.30-5.90); RDW 13.9 % (11.5-15.5); WBC 20.1 k/uL (3.8-10.6)
[2019-12-23] MEDS: IPRATROPIUM-ALBUTEROL 3 ML NEB INHALATION SCH ×4 (07:28→19:53)
[2019-12-23] MEDS: INSULIN ASPART (NovoLOG) 100 UNIT/ML VIAL SQ SCH ×4 (08:39→21:14)
[2019-12-23] MEDS: FAMOTIDINE 20 MG/2 ML VIAL IV SCH ×2 (08:41→21:14)
[2019-12-23] MEDS: AZITHROMYCIN 500 MG TAB PO SCH (08:41)
[2019-12-23] MEDS: lisinopriL 20 MG TAB PO SCH ×2 (08:42→21:14)
[2019-12-23] MEDS: HEPARIN SODIUM,PORCINE 5,000 UNIT/ML 1 ML VIAL SQ SCH ×2 (08:42→21:14)
[2019-12-23] MEDS ORDERED: NON FORMULARY DRUG (Dulaglutide [Trulicity] 1.5 MG) SQ SCH (09:00)
[2019-12-23 09:42] VITALS: RESP 18
[2019-12-23] MEDS: metFORMIN 500 MG TAB PO SCH ×2 (10:16→21:14)
--- NOTE | 2019-12-23 11:21 | P.PN ---
Subjective Progress Note Date: 12/23/19 Principal diagnosis: Acute febrile illness This is a 69-year-old white male, lifelong nonsmoker, known to have history of diabetes, hypertension, and remote history of Lyme's disease. Patient is also known to have history of enlarged prostate, came into the hospital with 2 days history of fever, cough, difficulty urinating, and redness of the left lower extremity. Patient was recently seen by his primary care physician for his left lower extremity cellulitis, placed on Keflex, and after few day, the redness of the left lower extremity improved. However after he finished the antibiotics course, the redness came back. Patient denies any trauma to the leg. Denies any history of thromboembolic disease. Upon presentation to the ER, patient was noted to have a temp as high as 101.1, and his temperature today is 98.7. In addition to his fever, patient describes productive cough with whitish phlegm, no wheezing, no chest pain, but he does have some mild shortness of breath. O2 saturation on room air was noted to be 90%. Patient also describes some difficulty in urination, but no hematuria, patient also describes history of Lyme disease over 20 years ago. Reevaluated today on 12/23/19, patient is doing much better today, hardly any complaints, no cough no shortness of breath, no more fever over the last 24 hours, blood cultures have been negative. Sputum cultures are negative. Urinalysis is relatively unremarkable. Hence the patient is cleared to be dis charged home today. Could go home on oral antibiotics. And I discussed his condition with internal medicine on the case Objective - Vital Signs Vital signs: Vital Signs Temp 98.4 F 12/23/19 09:00 Pulse 88 12/23/19 11:03 Resp 18 12/23/19 09:00 BP 114/58 12/23/19 09:00 Pulse Ox 94 L 12/23/19 09:00 Intake & Output 12/22/19 12/23/19 12/23/19 18:59 06:59 18:59 Intake Total 620 240 Output Total 300 604 Balance 320 -364 Intake: Oral 620 240 Output: Urine 300 600 Stool 4 Other: # Voids 2 1 1 - Exam Physical Exam: Revealed a 69-year-old white male obese, in no distress. Head:, Atraumatic, normocephalic. HEENT:[Neck is supple.] [No neck masses.] [No thyromegaly.] [No JVD.] PERRLA, EOMI, neck this. Chest: [Clear throughout, no crackles, no rhonchi, no wheezes.] Cardiac Exam: [Normal S1 and S2, no S3 gallop, no murmur.] Abdomen: Obese, [Soft, nontender, no megaly, no rebound, no guarding, normal bowel sounds.] Extremities: [No clubbing, no edema, no cyanosis.] There is an area of cellulitis and mild superficial ulceration over the anterior aspect of the left leg. Over anterior tibial area. Neurological Exam: [No focal neurologic deficit.] Alert and oriented 3, no gross focal neurologic deficits. Skin: Areas of redness and erythema over the left lower extremity anterior tibial aspect. Psychiatric: Normal mood affect and normal mental status examination. Lymphatics: No cervical lymphadenopathy or supraclavicular lymphadenopathy. - Labs CBC & Chem 7: 12/23/19 05:37 12/21/19 17:23 Labs: Abnormal Lab Results - Last 24 Hours (Table) 12/22/19 12/22/19 12/22/19 Range/Units 03:35 11:37 16:37 WBC (3.8-10.6) k/uL Neutrophils # (1.3-7.7) k/uL Monocytes # (0-1.0) k/uL POC Glucose (mg/dL) 421 H 413 H (75-99) mg/dL Angiotensin Convert Enz 4 L (8-52) U/L 12/22/19 12/23/19 12/23/19 Range/Units 20:35 05:37 06:18 WBC 20.1 H (3.8-10.6) k/uL Neutrophils # 16.7 H (1.3-7.7) k/uL Monocytes # 1.2 H (0-1.0) k/uL POC Glucose (mg/dL) 388 H 210 H (75-99) mg/dL Angiotensin Convert Enz (8-52) U/L Microbiology - Last 24 Hours (Table) 12/22/19 00:22 Gram Stain - Preliminary Sputum Sputum Culture - Preliminary 12/21/19 17:23 Blood Culture - Preliminary Blood No Growth after 24 hours Assessment and Plan Assessment: Impression: Acute febrile illness, fever has resolved. Acute cellulitis of the left lower extremity. Acute tracheobronchitis, no evidence of COPD exacerbation. Urinary retention most likely secondary to enlarged prostate, but no clear-cut evidence of urinary tract infection based on the urinalysis. Benign essential hypertension. Remote history of Lyme's disease over 20 years ago, treated. Morbid obesity. Recommendation: Switch patient to oral antibiotics. Discharge home on follow-up on outpatient basis. Discussed with the admitting physician. Time with Patient: Less than 30
[2019-12-23 11:42] LABS: Glucose,Whole Blood 236 mg/dL (75-99)
--- NOTE | 2019-12-23 11:48 | ECHOF ---
Referral Reason:Rule out heart disease MEASUREMENTS -------- HEIGHT: 182.9 cm WEIGHT: 156.5 kg BP: RVIDd: 3.5 cm (< 3.3) IVSd: 1.1 cm (0.6 - 1.1) LVIDd: 5.2 cm (3.9 - 5.3) LVPWd: 1.6 cm (0.6 - 1.1) IVSs: 1.6 cm LVIDs: 2.7 cm LVPWs: 2.0 cm LA Diam: 4.0 cm (2.7 - 3.8) Ao Diam: 3.2 cm (2.0 - 3.7) AV Cusp: 1.9 cm (1.5 - 2.6) MV EXCURSION: 20.304 mm (> 18.000) MV EF SLOPE: 106 mm/s (70 - 150) EPSS: 0.5 cm MV E Farhat: 0.42 m/s MV DecT: 175 ms MV A Farhat: 0.52 m/s MV E/A Ratio: 0.79 FINDINGS -------- Sinus rhythm. Morbid Obesity LV size, wall thickness and systolic function are normal, with an EF greater than 55%. The left javi tricular size is normal. The diastolic filling pattern is normal for the age of the patient 6.36. The right ventricle is normal in size. The left atrial size is normal. The right atrial size is normal. The aortic valve is trileaflet, and appears structurally normal. No aortic stenosis or regurgitation. Mild mitral regurgitation is present. Mild tricuspid regurgitation present. Right ventricular systolic pressure is normal at < 35 mmHg. The pulmonic valve was not well visualized. The aortic root size is normal. Echo free space represents a pericardial fat pad. CONCLUSIONS -------- 1. LV size, wall thickness and systolic function are normal, with an EF greater than 55%. 2. The left ventricular size is normal. 3. The diastolic filling pattern is normal for the age of the patient 6.36 4. The left atrial size is normal. 5. The right atrial size is normal. 6. Mild mitral regurgitation is present. 7. Mild tricuspid regurgitation present. 8. Echo free space represents a pericardial fat pad. BUSINESS COMMUNICATIONS INSTRUCTOR: Linnea Marie RDCS
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
[2019-12-23 16:48] LABS: Glucose,Whole Blood 226 mg/dL (75-99)
--- NOTE | 2019-12-23 17:11 | P.CONS ---
History of Present Illness - Reason for Consult Consult date: 12/22/19 sepsis Requesting physician: Curt Orlando - Chief Complaint fever and left leg redness x days - History of Present Illness Patient is 69-year male presented to the ER at [facility] yesterday afternoon for evaluation of fever and chills along with redness left lower extremity patient did mention that few weeks ago he noticed to have some redness to left lower extremity that was treated with oral Keflex patient did have initial improvement however on the last day or 2 he noticed the left leg becoming more swollen and red is also complaining of pain to the left leg to be more of a sharp 5-6 out of 10 and no radiation with this and the patie nt was evaluated by the ER physician on arrival to the ER patient did have a fever of 101 F patient was tachycardic with a white heart rate of 100 he did have white count of 22.5 patient UA has been negative blood cultures are currently pending patient also have a chest x-ray no active cardiopulmonary disease patient was started on Rocephin and Zithromax infectious was consulted for further management of antibiotic therapy patient also give a history of Lyme disease admission had received doxycycline for more than a year for the same Review of Systems Positive point has been mentioned HPI rest of the systems are negative Past Medical History Past Medical History: Heart Failure, COPD, Diabetes Mellitus, Hypertension Additional Past Medical History / Comment(s): Lyme Disease History of Any Multi-Drug Resistant Organisms: None Reported Past Surgical History: Orthopedic Surgery Additional Past Surgical History / Comment(s): right knee, lap abnd surgery, colonoscopy, kidney stones Past Anesthesia/Blood Transfusion Reactions: No Reported Reaction Past Psychological History: No Psychological Hx Reported Smoking Status: Never smoker Past Alcohol Use History: None Reported Past Drug Use History: None Reported Medications and Allergies Home Medications Medication Instructions Recorded Confirmed Type Albuterol Sulfate [Proair Hfa] 2 puff INHALATION RT-QID PRN 05/04/15 12/21/19 History Enalapril [Vasotec] 20 mg PO BID 05/04/15 12/21/19 History Insuln Asp Prt/Insulin Aspart See Protocol SQ AC-TID 05/04/15 12/21/19 History [NovoLOG MIX 70-30 VIAL] Allopurinol [Zyloprim] 300 mg PO HS 12/21/19 12/21/19 History Colchicine [Colcrys] 0.6 mg PO BID PRN 12/21/19 12/21/19 History Dulaglutide [Trulicity] 1.5 mg SQ TH 12/21/19 12/21/19 History Insulin Glargine,Hum.rec.anlog 150 units SQ HS 12/21/19 12/21/19 History [Yordan Barnhartafsanehotis] metFORMIN HCL [metFORMIN HCL ER] 500 mg PO BID 12/21/19 12/21/19 History traMADol HCL [Ultram] 50 mg PO BID PRN 12/21/19 12/21/19 History Allergies Allergy/AdvReac Type Severity Reaction Status Date / Time levofloxacin [From Levaquin] Allergy Unknown Verified 12/21/19 19:52 Penicillins Allergy Rash/Hives Verified 12/21/19 19:52 Physical Exam Vitals: Vital Signs Temp Pulse Pulse Resp BP BP Pulse Ox 12/22/19 15:00 98.1 F 77 16 139/66 95 12/22/19 09:00 16 12/22/19 08:12 84 12/22/19 08:01 98.7 F 84 16 121/71 90 L 12/22/19 07:58 84 12/22/19 02:45 98.4 F 80 16 125/59 12/22/19 01:59 99 18 12/22/19 01:00 101.3 F H 110 H 20 137/67 94 L 12/21/19 20:50 18 12/21/19 20:49 86 18 12/21/19 20:40 97.9 F 99 16 117/63 99 12/21/19 20:39 85 18 12/21/19 20:02 100.4 F H 62 22 136/80 97 12/21/19 18:48 20 12/21/19 17:55 85 18 12/21/19 17:49 82 18 12/21/19 16:41 101.1 F H 100 20 118/55 99 Intake and Output 12/22/19 12/22/19 12/22/19 06:59 14:59 22:59 Intake Total 620 Output Total 603 300 Balance -603 320 Intake: Oral 620 Output: Urine 600 300 Stool 3 Other: # Voids 1 2 GENERAL DESCRIPTION: Elderly male lying in bed, no distress. No tachypnea or accessory muscle of respiration use. HEENT: Shows Pallor , no scleral icterus. Oral mucous membrane is dry. No pharyngeal erythema or thrush NECK: Trachea central, no thyromegaly. LUNGS: Unlabored breathing. Decreased breath sound at the base. No wheeze or crackle. HEART: S1, S2, regular rate and rhythm. No loud murmur ABDOMEN: Soft, no tenderness , guarding or rigidity, no organomegaly EXTREMITIES: Left leg with swelling redness slightly warm to touch no induration or any wound. SKIN: No rash, no masses palpable. NEUROLOGICAL: The patient is awake, alert, oriented x3, mood and affect normal. Results CBC & Chem 7: 12/23/19 05:37 12/21/19 17:23 Labs: Abnormal Lab Results - Last 24 Hours (Table) 12/21/19 12/21/19 12/21/19 Range/Units 17:23 17:23 17:23 WBC 22.5 H (3.8-10.6) k/uL Neutrophils # 20.1 H (1.3-7.7) k/uL Lymphocytes # 0.8 L (1.0-4.8) k/uL Sodium 136 L (137-145) mmol/L Glucose 210 H (74-99) mg/dL POC Glucose (mg/dL) (75-99) mg/dL Plasma Lactic Acid Harvinder 2.5 H* (0.7-2.0) mmol/L Urine Protein (Negative) Urine Ketones (Negative) Urine Bacteria (None) /hpf Hyaline Casts (0-2) /lpf Urine Mucus (None) /hpf 12/21/19 12/21/19 12/21/19 Range/Units 17:32 20:55 21:26 WBC (3.8-10.6) k/uL Neutrophils # (1.3-7.7) k/uL Lymphocytes # (1.0-4.8) k/uL Sodium (137-145) mmol/L Glucose (74-99) mg/dL POC Glucose (mg/dL) 326 H (75-99) mg/dL Plasma Lactic Acid Harvinder 3.0 H* (0.7-2.0) mmol/L Urine Protein 1+ H (Negative) Urine Ketones Trace H (Negative) Urine Bacteria Rare H (None) /hpf Hyaline Casts 10 H (0-2) /lpf Urine Mucus Few H (None) /hpf 12/22/19 12/22/19 12/22/19 Range/Units 00:03 05:56 11:37 WBC (3.8-10.6) k/uL Neutrophils # (1.3-7.7) k/uL Lymphocytes # (1.0-4.8) k/uL Sodium (137-145) mmol/L Glucose (74-99) mg/dL POC Glucose (mg/dL) 224 H 421 H (75-99) mg/dL Plasma Lactic Acid Harvinder 2.9 H* (0.7-2.0) mmol/L Urine Protein (Negative) Urine Ketones (Negative) Urine Bacteria (None) /hpf Hyaline Casts (0-2) /lpf Urine Mucus (None) /hpf Assessment and Plan Assessment: 1-patient presented to hospital with sepsis in this patient who did have a fever tachycardia elevated white count source is likely left lower extremity cellulitis with diffuse swelling redness likely streptococcal disease clinically doubt MRSA or gram-negative infection (1) Left leg cellulitis Current Visit: Yes Status: Acute Code(s): L03.116 - CELLULITIS OF LEFT LOWER LIMB SNOMED Code(s): 268289325 (2) Sepsis Current Visit: Yes Status: Acute Code(s): A41.9 - SEPSIS, UNSPECIFIED ORGANISM SNOMED Code(s): 70847987 Plan: 1-discontinue Rocephin 2-start the patient on cefazolin 2 g every 8 hour 3-marked the area of the redness left leg 4-Aleksandar wrap to the leg from just above the toe to below the knee We will follow on clinical condition and cultures to further adjust medication if needed Thank you for this consultation will follow this patient along with you Time with Patient: Greater than 30
--- NOTE | 2019-12-23 18:31 | PN ---
PROGRESS NOTE DATE OF SERVICE: 12/23/2019 REASON FOR FOLLOWUP: Left lower extremity cellulitis with sepsis. INTERVAL HISTORY: The patient is currently afebrile. The patient is breathing comfortably. The patient denies having any chest pain or shortness of breath. Minimal cough. No nausea, no vomiting. No abdominal pain. Still has some swelling and redness in the left lower extremity. PHYSICAL EXAMINATION: Blood pressure 124/61 with a pulse of 70, temperature 98. He is 95% on room air. General description is an elderly male up in the bed in no distress. RESPIRATORY SYSTEM: Unlabored breathing with decreased breath sounds at the base. No wheeze. HEART: S1, S2. Regular rate and rhythm. ABDOMEN: Soft. No tenderness. Left leg swelling and redness minimally improved. LABS: Hemoglobin 13.5, white count 20,000. DIAGNOSTIC IMPRESSION AND PLAN: Patient with acute left lower extremity cellulitis in this patient who presented to hospital with sepsis. The patient is currently covered with cefazolin; to continue Aleksandar wrap and compression to keep the swelling down. Continue with supportive care. MMODL / IJN: [id number] /
[2019-12-23 21:05] LABS: Glucose,Whole Blood 188 mg/dL (75-99)
[2019-12-23] MEDS: allopurinoL 300 MG TAB PO SCH (21:13)
[2019-12-23] MEDS: INSULIN DETEMIR (LEVEMIR) 100 UNIT/ML SYR SQ SCH (21:14)
[2019-12-24 06:21] LABS: Basophils % (A) 0 %; Eosinophils # (A) 0.1 k/uL (0-0.7); Eosinophils % (A) 1 %; HCT 38.2 % (39.0-53.0); HGB 12.1 gm/dL (13.0-17.5); Lymphocytes # (A) 2.4 k/uL (1.0-4.8); Lymphocytes % (A) 32 %; MCH 29.1 pg (25.0-35.0); MCHC 31.7 g/dL (31.0-37.0); MCV 91.8 fL (80.0-100.0); Mean Platelet Volume 7.5; Monocytes # (A) 0.4 k/uL (0-1.0); Monocytes % (A) 5 %; Neutrophils # (A) 4.2 k/uL (1.3-7.7); Neutrophils % (A) 58 %; Platelet Count 186 k/uL (150-450); RBC 4.15 m/uL (4.30-5.90); WBC 7.3 k/uL (3.8-10.6)
[2019-12-24 06:49] LABS: Glucose,Whole Blood 229 mg/dL (75-99)
[2019-12-24] MEDS: IPRATROPIUM-ALBUTEROL 3 ML NEB INHALATION SCH ×3 (07:41→15:20)
[2019-12-24] MEDS: INSULIN ASPART (NovoLOG) 100 UNIT/ML VIAL SQ SCH ×2 (07:50→11:57)
[2019-12-24] MEDS: AZITHROMYCIN 500 MG TAB PO SCH (09:01)
[2019-12-24] MEDS: FAMOTIDINE 20 MG/2 ML VIAL IV SCH (09:01)
[2019-12-24] MEDS: lisinopriL 20 MG TAB PO SCH (09:02)
[2019-12-24] MEDS: HEPARIN SODIUM,PORCINE 5,000 UNIT/ML 1 ML VIAL SQ SCH (09:02)
[2019-12-24] MEDS: metFORMIN 500 MG TAB PO SCH (09:07)
[2019-12-24 10:13] VITALS: TEMP 98.3
[2019-12-24 11:44] LABS: Glucose,Whole Blood 118 mg/dL (75-99)
--- NOTE | 2019-12-24 15:28 | PN ---
PROGRESS NOTE DATE OF SERVICE: 12/24/2019 REASON FOR FOLLOWUP: Left lower extremity cellulitis. INTERVAL HISTORY: Patient was seen on rounds early this afternoon. The patient has been afebrile. He is feeling better. Breathing comfortably. No chest pain, no cough. No abdominal pain or any worsening pain in the left leg. PHYSICAL EXAMINATION: Blood pressure 128/83 with a pulse of 96, temperature of 98.3. He is 96% on room air. General description is an elderly male, up in the chair in no distress. RESPIRATORY SYSTEM: Unlabored breathing, clear to auscultation anteriorly. HEART: S1, S2. Regular rate and rhythm. Left leg redness has much improved. LABS: Hemoglobin is 12.1, white count 7.3. Blood culture negative. DIAGNOSTIC IMPRESSION AND PLAN: Patient with acute left lower extremity cellulitis with sepsis. Overall clinical improvement. White count normalized. Culture negative to finish with oral Keflex 500 mg p.o. q.6 hours for 10 days. Prescription sent to the pharmacy. MMODL / IJN: [id number] /
[2019-12-24 16:02] VITALS: BP 133/82; PULSE 72
--- NOTE | 2019-12-25 00:07 | P.DS ---
Providers Date of admission: 12/22/19 11:44 Attending physician: Kvng Ly Consults: 12/21/19 19:34 Consult Physician Routine Consulting Provider: Sarah Melendez Consult Reason/Comments: copd Do you want consulting provider notified?: Yes 12/22/19 09:57 Consult Physician Routine Consulting Provider: Ridge Macias Consult Reason/Comments: Lyme's disease history, bug bite Do you want consulting provider notified?: Yes Primary care physician: Jt Abbott Hospital Course: Diagnoses: Sepsis secondary to left leg cellulitis, he meets SIRS criteria with leukocytosis and fever, tachycardia and tachypnea , improving COPD, mild acute exacerbation, improved Chronic heart failure Left renal colic, and review of history of left kidney stone Hypertension Diabetes mellitus Lyme disease Chronic diastolic heart failure with ejection fraction of 50-55% Right bundle branch block with QTC of 520 Morbid obesity with BMI 46 Hospital course: This is a pleasant 69 years old male with past medical history of heart failure, COPD, diabetes mellitus, hypertension, lyme disease, left kidney stone. He presents because of fever, cough with phlegm and dyspnea of one-day duration. He has history of COPD and he follows up with Dr. Garcia as an outpatient. Also he had cellulitis in his left leg. Patient has been treated with antibiotics Zithromax and cefazolin, also treated with bronchodilator and BiPAP/CPAP sheen at night, patient breathing significantly improved and back to normal no more dyspnea. Patient has been evaluated by pulmonary and infectious disease team. His cellulitis is also improving. Ultrasound of the lower extremity is negative for DVT. Has no more fever and subsided for more than 24 hours. Leukocytosis came back to normal. On the day of discharge she denies chest pain or dyspnea, no coughing, no headache or dizziness. No abdominal pain or nausea vomiting and is tolerating diet well. Patient feels he can go home today Patient was cleared for discharge by pulmonary and infectious disease team Patient will be discharged on short course of oral antibiotics as per ID team recommendation Problems and management plan were discussed with the patient and he verbalized u nderstanding and acceptance Patient was found stable and can be discharged home however he needs follow-up as an outpatient. Patient was instructed to follow up with PCP Dr. Abbott within one week and patient agrees. Patient agrees with the appointments made for him with Dr. Abbott on 01/[address] mathews (for his chronic right hip pain, of 6 month duration, evaluated before by Dr. Mathews). Also patient was instructed to follow up with Dr. garcia in 2 weeks and he agrees to make his own appointment Gen: patient is a AAOx3, no distress CVS: S1-S2, RRR, no murmur Lungs: B/L CTA, no wheezing Abdomen: soft, no distention, no tenderness, positive bowel sounds Extremity: no leg edema or induration Time spent more than 35 minutes Patient Condition at Discharge: Serious Plan - Discharge Summary New Discharge Prescriptions: New Cephalexin [Keflex] 500 mg PO Q6HR #40 cap Continue Insuln Asp Prt/Insulin Aspart [NovoLOG MIX 70-30 VIAL] See Protocol SQ AC-TID Albuterol Sulfate [Proair Hfa] 2 puff INHALATION RT-QID PRN PRN Reason: Shortness Of Breath Enalapril [Vasotec] 20 mg PO BID Allopurinol [Zyloprim] 300 mg PO HS Colchicine [Colcrys] 0.6 mg PO BID PRN PRN Reason: gout Dulaglutide [Trulicity] 1.5 mg SQ TH Insulin Glargine,Hum.rec.anlog [Toujeo Solostar] 150 units SQ HS metFORMIN HCL [metFORMIN HCL ER] 500 mg PO BID traMADol HCL [Ultram] 50 mg PO BID PRN PRN Reason: Pain Discharge Medication List Albuterol Sulfate [Proair Hfa] 2 puff INHALATION RT-QID PRN 05/04/15 [History] Enalapril [Vasotec] 20 mg PO BID 05/04/15 [History] Insuln Asp Prt/Insulin Aspart [NovoLOG MIX 70-30 VIAL] See Protocol SQ AC-TID 05/04/15 [History] Allopurinol [Zyloprim] 300 mg PO HS 12/21/19 [History] Colchicine [Colcrys] 0.6 mg PO BID PRN 12/21/19 [History] Dulaglutide [Trulicity] 1.5 mg SQ TH 12/21/19 [History] Insulin Glargine,Hum.rec.anlog [Toujeo Solostar] 150 units SQ HS 12/21/19 [History] metFORMIN HCL [metFORMIN HCL ER] 500 mg PO BID 12/21/19 [History] traMADol HCL [Ultram] 50 mg PO BID PRN 12/21/19 [History] Cephalexin [Keflex] 500 mg PO Q6HR #40 cap 12/24/19 [Rx] Follow up Appointment(s)/Referral(s): Sarah Melendez MD [STAFF PHYSICIAN] - 2 Weeks [facility] [NON-STAFF] - As Needed Ramiro Mathews DO [Doctor of Osteopathic Medicine] - 12/31/19 11:30 am [facility], [NON-STAFF] - 1-2 Days Jt Abbott DO [Primary Care Provider] - 12/28/19 3:20 pm (Please call office from parking lot when you arrive.) Patient Instructions/Handouts: Cellulitis (GEN), COPD (Chronic Obstructive Pulmonary Disease) (GEN) Activity/Diet/Wound Care/Special Instructions: Heart healthy diet Activities Limited till you see your doctor Discharge Disposition: HOME SELF-CARE
== END 2019-12-24 16:48 | disposition home or self-care (01) | DRG 872 ==
LOC: EC 16:32 → 1SOBS 19:36 → OBSVTOIN 12-22 11:44
PROVIDERS: ADMIT Hospitalist; ATTEND Hospitalist
PROC: 5A09457 Assistance with Respiratory Ventilation, 24-96 Consecutive Hours, Continuous Positive Airway Pressure (ICD-10-PCS; principal; 2019-12-22)
DX: A41.9 Sepsis, unspecified organism (principal); Z68.42 Body mass index [BMI] 45.0-49.9, adult; J44.1 Chronic obstructive pulmonary disease with (acute) exacerbation; I50.32 Chronic diastolic (congestive) heart failure; L03.116 Cellulitis of left lower limb; J44.0 Chronic obstructive pulmonary disease with (acute) lower respiratory infection; N40.1 Benign prostatic hyperplasia with lower urinary tract symptoms; E66.01 Morbid (severe) obesity due to excess calories; E11.9 Type 2 diabetes mellitus without complications; G89.29 Other chronic pain; I45.10 Unspecified right bundle-branch block; Z20.828 Contact with and (suspected) exposure to other viral communicable diseases; I11.0 Hypertensive heart disease with heart failure; R33.8 Other retention of urine; N23 Unspecified renal colic; J20.9 Acute bronchitis, unspecified; W57.XXXA Bitten or stung by nonvenomous insect and other nonvenomous arthropods, initial encounter; S80.862A Insect bite (nonvenomous), left lower leg, initial encounter; Z79.4 Long term (current) use of insulin; Z79.84 Long term (current) use of oral hypoglycemic drugs; Z88.0 Allergy status to penicillin; Z88.1 Allergy status to other antibiotic agents; Z87.442 Personal history of urinary calculi; Z98.890 Other specified postprocedural states
CPT/HCPCS: 36415; 71046; 80053; 81001; 82164; 83605; 83735; 84484; 85025; 87040; 87070; 87205; 93005; 93306; 93970; 94640; 94660; 96361; 96365; 96375; 99285

== ENCOUNTER → 2019-12-31 | Outpatient (CLI) | payer MEDICARE ==
--- NOTE | 2019-12-31 08:22 | US ---
EXAMINATION TYPE: US duplex aorta DATE OF EXAM: 12/31/2019 COMPARISON: CT dated 04/05/2019 CLINICAL HISTORY: E11.65 DM II, I10 HTN. EXAM MEASUREMENTS: Abdominal Aorta: Proximal: not visualized Mid: not visualized Distal: 2.2 cm ap Bifurcation: not visualized not visualized Non diagnostic study due to large patient body habitus. IMPRESSION: Exam is limited technically, prior CT showed no evident aneurysm.
== END | disposition home or self-care (01) ==
LOC: RADUSWWP 07:19
PROVIDERS: ATTEND Family Medicine
DX: E11.65 Type 2 diabetes mellitus with hyperglycemia (principal); E66.01 Morbid (severe) obesity due to excess calories; I10 Essential (primary) hypertension
CPT/HCPCS: 93979

== ENCOUNTER → 2020-01-19 | Outpatient (CLI) | payer MEDICARE ==
[~2020-01-19] MED LIST: REGADENOSON 0.4 MG/5 ML SYRINGE IV ONE
--- NOTE | 2020-01-19 13:19 | NM ---
EXAMINATION TYPE: NM stress lexiscan cardiolite DATE OF EXAM: 01/19/2020 COMPARISON: NONE HISTORY: R09.89, chest pain TECHNIQUE: After the intravenous administration of 9.82 mCi Tc 99m Sestamibi - Cardiolite resting SP ECT images acquired 75 minutes post injection. The patient received 0.4mg Lexiscan, 26.6 mCi Tc 99m Sestamibi - Stress images obtained [address] injection FINDINGS: Review of stress and rest SPECT images demonstrates decreased uptake along the inferior wall, inferol ateral wall extending to the cardiac apex greater on stress than on rest images. Gated analysis show s questionable paradoxical inferior apical motion with an estimated left ventricular ejection fractio n of 50 %. 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 Consider echocardiographic cor relation for wall motion. Physician's office was called without answer. Voicemail message was left.
--- NOTE | 2020-01-19 15:12 | EST ---
EXERCISE STRESS AGE: 69 SEX: M HT: 6 ft. WT: 361 lbs. PROTOCOL: Lexiscan Cardiolite STAGE: N/A DURATION OF EXERCISE: N/A HEART RATE REST: 75 BLOOD PRESSURE REST: 136/89 MAXIMUM HEART RATE ACHIEVED: 81 MAXIMUM BLOOD PRESSURE: 137/71 85% MPHR: 130 100% MPHR: 153 METS: N/A INDICATIONS: Chest pain, decreased pedal pulses, let pain. CLINICAL INFORMATION: Baseline EKG shows sinus rhythm with right bundle branch block, the patient was given intravenous Lexiscan as per protocol, did not have chest pain or diagnostic ST-segment depression. CONCLUSION: 1. Inconclusive EKG part of the stress test due to baseline EKG abnormalities. 2. Cardiolite portion of the stress test will be reported separately. MMODL / IJN: [id number] /
--- NOTE | 2020-01-27 11:19 | P.ARTDOP ---
Arterial Doppler LOWER EXTREMITY ARTERIAL DOPPLER: DATE OF SERVICE: 01/19/2020 Reason for study: Bilateral leg pain. Doppler waveforms: Multiphasic bilaterally throughout. Pulse volume recording: []. Pressure gradients: None. Ankle-brachial indices: Greater than 1 bilaterally. Toe brachial indices: 0.97 on the right, 0.81 on the left Impression: Normal study.
== END | disposition home or self-care (01) ==
LOC: RADNMMAIN 08:35
PROVIDERS: ATTEND Internal Medicine
DX: R94.31 Abnormal electrocardiogram [ECG] [EKG] (principal); M79.605 Pain in left leg; M79.604 Pain in right leg; R07.9 Chest pain, unspecified; R06.09 Other forms of dyspnea; R09.89 Other specified symptoms and signs involving the circulatory and respiratory systems
CPT/HCPCS: 93017; 93922; 78452; A9500; J2785

== ENCOUNTER 2020-03-02 14:11 | Emergency (ER) | payer MEDICARE ==
[2020-03-02 14:31] VITALS: TEMP 98.2
[2020-03-02] MEDS ORDERED: RX INFO: IV CONTRAST WAS GIVEN 1 EACH MISC MISCELLANE PRN (15:11)
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
[2020-03-02 15:37] LABS: Basophils % (A) 1 %; Eosinophils # (A) 0.2 k/uL (0-0.7); Eosinophils % (A) 3 %; HCT 40.9 % (39.0-53.0); HGB 13.7 gm/dL (13.0-17.5); Lymphocytes # (A) 1.7 k/uL (1.0-4.8); Lymphocytes % (A) 20 %; MCH 30.2 pg (25.0-35.0); MCHC 33.4 g/dL (31.0-37.0); MCV 90.5 fL (80.0-100.0); Mean Platelet Volume 7.3; Monocytes # (A) 0.5 k/uL (0-1.0); Monocytes % (A) 5 %; Neutrophils # (A) 5.9 k/uL (1.3-7.7); Neutrophils % (A) 70 %; Platelet Count 242 k/uL (150-450); RBC 4.52 m/uL (4.30-5.90); RDW 14.2 % (11.5-15.5); WBC 8.4 k/uL (3.8-10.6)
[2020-03-02 15:45] LABS: Albumin 3.9 g/dL (3.5-5.0); Calcium 9.2 mg/dL (8.4-10.2); Magnesium 1.9 mg/dL (1.6-2.3); Potassium 4.8 mmol/L (3.5-5.1); Total Bilirubin 0.5 mg/dL (0.2-1.3); Total Protein 6.8 g/dL (6.3-8.2)
[2020-03-02 15:51] LABS: INR 0.9 (<1.2); Partial Thromboplastin Time 24.2 sec (22.0-30.0); Prothrombin Time 9.6 sec (9.0-12.0)
--- NOTE | 2020-03-02 16:14 | US ---
EXAMINATION TYPE: US venous doppler duplex LE RT DATE OF EXAM: 03/02/2020 3:10 PM COMPARISON: NONE CLINICAL HISTORY: dvt?. pain in right leg SIDE PERFORMED: Right TECHNIQUE: The lower extremity deep venous system is examined utilizing real time linear array sonog fco with graded compression, doppler sonography and color-flow sonography. VESSELS IMAGED: External Iliac Vein (EIV) Common Femoral Vein Deep Femoral Vein Greater Saphenous Vein * Femoral Vein Popliteal Vein Small Saphenous Vein * Proximal Calf Veins (* superficial vessels) There is normal flow, compressibility, vascular waveforms Right Leg: Negative for DVT7.2cm Brar Cysts seen IMPRESSION: No evident deep venous arthrosis at or above the right knee. 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
--- NOTE | 2020-03-02 16:51 | CT ---
EXAMINATION TYPE: CT angio lower extremity RT DATE OF EXAM: 03/02/2020 COMPARISON: HISTORY: Right leg pain. CT DLP: 1346.9 mGycm Automated exposure control for dose reduction was used. CONTRAST: Performed with IV Contrast, patient injected with 125 mL of Isovue 370. There are 3-D post processed images. Images were obtained from the lower abdominal aorta to the botto m of the right foot with IV contrast. FINDINGS: Abdominal aorta is intact. There is no evidence of aneurysm or dissection in the lower abdominal aort a. There is patency of the iliac arteries. No significant plaque is seen. There is bilateral patency of the femoral arteries and popliteal arteries. There is bilateral knee joint effusion with bilateral popliteal cysts. There is patency of the tibial arteries in the tibial artery trifurcations. There is arterial flow in the anterior and posterior tibial arteries bilaterally. There is bilateral flow in the peroneal arteries. There is arterial flow in the dorsalis pedis artery and posterior tibi al artery at the ankle bilaterally. I see no evidence of hemodynamic stenosis. There is arterial flow bilaterally in the arcuate arteries of the feet. Images through the lower abdomen show normal appendix. Bladder distends smoothly. There is no evidenc e of pelvic mass. There is no ascites. There is no evidence of bowel obstruction. impression Negative CT angiogram of the right leg. No evidence of aneurysm or dissection or hemodynamic stenosis . Arteries of the right leg appear widely patent. Bilateral popliteal cysts and knee joint effusion.
[2020-03-02 18:05] VITALS: BP 144/69; PULSE 74; RESP 18
== END 2020-03-02 18:05 | disposition home or self-care (01) ==
LOC: EC 14:11
DX: M16.11 Unilateral primary osteoarthritis, right hip (principal); E11.9 Type 2 diabetes mellitus without complications; J44.9 Chronic obstructive pulmonary disease, unspecified; I25.10 Atherosclerotic heart disease of native coronary artery without angina pectoris; I50.9 Heart failure, unspecified; I11.0 Hypertensive heart disease with heart failure; Z79.4 Long term (current) use of insulin; Z79.82 Long term (current) use of aspirin; Z79.02 Long term (current) use of antithrombotics/antiplatelets; Z79.899 Other long term (current) drug therapy; Z95.5 Presence of coronary angioplasty implant and graft; Z88.0 Allergy status to penicillin; Z88.1 Allergy status to other antibiotic agents
CPT/HCPCS: 36415; 80053; 83605; 83735; 85025; 85610; 85730; 93971; 73706; 99284; Q9967

== ENCOUNTER → 2020-06-19 | Outpatient (CLI) | payer MEDICARE ==
--- NOTE | 2020-06-19 15:24 | P.HPBAR ---
Bariatric H&P - History & Physicial H&P Date: 06/19/20 History & Physicial: Visit/CC: follow up Patient initial contact: Initial weight: Initial weight in pounds: Height: 5 ft 10 in Initial BMI: Last weight: Current weight: 160.118 kg Current weight in pounds: 353.00 Current BMI: 50.6 [place] body weight (based on NIH guidelines): 75.296 kg Excess body weight loss: The patient is a 70 year-old M who presents for Bariatric Assessment. Patient presents today follow-up. He has LAP-BAND surgery many years ago. He's had complaints of dysphagia. He is requesting conversion sleeve gastrectomy. Past Medical History Past Medical History: Coronary Artery Disease (CAD), Heart Failure, COPD, Diabetes Mellitus, Hypertension Additional Past Medical History / Comment(s): Lyme Disease History of Any Multi-Drug Resistant Organisms: None Reported Past Surgical History: Heart Catheterization With Stent, Orthopedic Surgery Additional Past Surgical History / Comment(s): right knee, lap abnd surgery, colonoscopy, kidney stones Past Anesthesia/Blood Transfusion Reactions: No Reported Reaction Date of Last Stent Placement:: 02/24/2020 Past Psychological History: No Psychological Hx Reported Smoking Status: Never smoker Past Alcohol Use History: Occasional Past Drug Use History: None Reported Surgical - Exam Vital Signs Temp Pulse Resp BP 97.7 F 83 22 116/72 06/19/20 14:35 06/19/20 14:35 06/19/20 14:35 06/19/20 14:35 - General well developed, well nourished, no distress - Eyes PERRL - ENT normal pinna - Neck no masses - Respiratory normal expansion - Cardiovascular Rhythm: regular - Abdomen Abdomen: soft, non tender Bariatric Assessment & Plan Plan: Morbid obesity. Patient has chronic dysphagia related to her LAP-BAND. We will attempt to obtain insurance authorization for removal LAP-BAND conversion sleeve gastrectomy. Bariatric Checklist Checklist: Plan: Checklist: EGD: 1. Hiatal hernia: 2. H. Pylori: HgbA1c: Vitamin D: Smoking: Former smoker Primary care physician referral: Stefania Psychiatry clearance: Cardiology clearance: Sleep study: Diet journal: VTE risk score: VTE risk level: Rehab needs at discharge:
== END ==
CPT/HCPCS: 99211

== ENCOUNTER 2020-06-29 14:39 | Observation (INO) | payer MEDICARE ==
[2020-06-29 14:31] LABS: Glucose,Whole Blood 499 mg/dL (75-99)
[2020-06-29] MEDS ORDERED: SODIUM CHLORIDE 0.9% 1,000 ML IV STA (14:57)
[2020-06-29] MEDS ORDERED: INSULIN REGULAR 100 UNIT/ML VIAL IV ONE (15:12)
--- NOTE | 2020-06-29 15:19 | ED ---
General Adult HPI - General Chief complaint: Abdominal Pain Stated complaint: Chest pain, came over from CT Time Seen by Provider: 06/29/20 14:45 Source: patient Mode of arrival: wheelchair Limitations: no limitations - History of Present Illness Initial comments: 70-year-old male with history of morbid obesity, COPD, CAD, diabetes presents emergency Department with a chief complaint of not feeling well. Patient states he went to get a CAT scan today with IV and oral contrast of the abdomen and pelvis due to a concern of diverticulitis. The nuclear chemistry technician, states the patient became diaphoretic and palpitations so they checked his blood sugar and it was 499. They brought him to the emergency department for evaluation. Patient states he feels disoriented and has some intermittent chest pain. Denies any associated shortness of breath. He denies any dizziness where the room was spinning around him nor any lightheadedness where he feels like passing out. Patient states his blood glucose is usually well-controlled and there is typically an infection whenever it spikes of this type. He also reports not taking his diabetic medication this morning. Patient did mention about having dysuria for the about a week. - Related Data Home Medications Medication Instructions Recorded Confirmed Enalapril [Vasotec] 20 mg PO BID 05/04/15 06/29/20 Allopurinol [Zyloprim] 300 mg PO DAILY 12/21/19 06/29/20 Insulin Glargine,Hum.rec.anlog 150 units SQ HS 12/21/19 06/29/20 [Yordan Hankins] metFORMIN HCL [metFORMIN HCL ER] 500 mg PO BID 12/21/19 06/29/20 Atorvastatin Calcium [Lipitor] 40 mg PO HS 03/02/20 06/29/20 Clopidogrel Bisulfate [Plavix] 75 mg PO DAILY 03/02/20 06/29/20 Furosemide [Lasix] 40 mg PO DAILY 03/02/20 06/29/20 Insulin Aspart (Niacinamide) 30 units SQ AC-TID 03/02/20 06/29/20 [Fiasp 100 Unit/ml Vial] Metoprolol Succinate (ER) [Toprol 25 mg PO DAILY 03/02/20 06/29/20 Xl] Tamsulosin HCl [Flomax] 0.4 mg PO DAILY 03/02/20 06/29/20 Dulaglutide [Trulicity] 1.5 mg SQ TH 06/19/20 06/29/20 Albuterol Inhaler [Ventolin Hfa 2 puff INHALATION RT-QID PRN 06/29/20 06/29/20 Inhaler] Aspirin EC [Ecotrin Low Dose] 81 mg PO DAILY 06/29/20 06/29/20 Cholecalciferol [Vitamin D3 (25 125 mcg PO DAILY 06/29/20 06/29/20 Mcg = 1000 Iu)] Comfort-Max 1 tab PO DAILY 06/29/20 06/29/20 Joint Relief Supplements 1 tab PO DAILY 06/29/20 06/29/20 oxyCODONE-APAP 5-325MG [Percocet 1 tab PO DAILY PRN 06/29/20 06/29/20 5-325 mg] Allergies Allergy/AdvReac Type Severity Reaction Status Date / Time ciprofloxacin Allergy Nausea & Verified 06/29/20 15:39 Vomiting levofloxacin [From Levaquin] Allergy Unknown Verified 06/29/20 15:39 Penicillins Allergy Rash/Hives Verified 06/29/20 15:39 Review of Systems ROS Statement: Those systems with pertinent positive or pertinent negative responses have been documented in the HPI. ROS Other: All systems not noted in ROS Statement are negative. Past Medical History Past Medical History: Coronary Artery Disease (CAD), Heart Failure, COPD, Diabetes Mellitus, Hypertension Additional Past Medical History / Comment(s): Lyme Disease History of Any Multi-Drug Resistant Organisms: None Reported Past Surgical History: Heart Catheterization With Stent, Orthopedic Surgery Additional Past Surgical History / Comment(s): right knee, lap abnd surgery, colonoscopy, kidney stones Past Anesthesia/Blood Transfusion Reactions: No Reported Reaction Date of Last Stent Placement:: 02/24/2020 Past Psychological History: No Psychological Hx Reported Smoking Status: Never smoker Past Alcohol Use History: Occasional Past Drug Use History: None Reported General Exam Limitations: no limitations General appearance: alert, in no apparent distress, obese (Morbidly obese) Head exam: Present: atraumatic, normocephalic, normal inspection Eye exam: Present: normal appearance, PERRL, EOMI Pupils: Present: normal accommodation ENT exam: Present: normal exam, normal oropharynx, mucous membranes moist Neck exam: Present: normal inspection, full ROM. Absent: tenderness Respiratory exam: Present: normal lung sounds bilaterally (Patient continues to have a nonproductive cough.). Absent: respiratory distress, wheezes, rales, rhonchi, stridor Cardiovascular Exam: Present: regular rate, normal rhythm, normal heart sounds GI/Abdominal exam: Present: soft, tenderness (Mild left lower quadrant tenderness). Absent: distended Extremities exam: Present: normal inspection, full ROM, normal capillary refill. Absent: tenderness Back exam: Present: normal inspection, full ROM. Absent: tenderness Neurological exam: Present: alert, oriented X3 Psychiatric exam: Present: normal affect, normal mood Skin exam: Present: warm, dry, intact, normal color Course Vital Signs 06/29/20 06/29/20 14:40 17:23 Temperature 98.1 F Pulse Rate 85 80 Respiratory 18 18 Rate Blood Pressure 135/70 118/95 O2 Sat by Pulse 96 97 Oximetry EKG Findings - EKG Comments: EKG Findings:: Normal sinus rhythm with a right bundle branch block. Similar EKG to 12/22/2019. Ventricular rate 80, RI 150, QRS 152, QTC 472. Medical Decision Making - Medical Decision Making 70-year-old male with history of morbid obesity, COPD, CAD, diabetes presents emergency Department with a chief complaint of not feeling well. On physical examination, patient continues to have a persistent, nonproductive cough. His vital signs are within normal limits. Chest x-ray showing chronic pulmonary changes with possible bronchitis. CBC unremarkable. Coags within normal limits.VBG unremarkable. CMP reveals a BUN and creatinine. Blood glucose 500. Patient was given 8 units of regular insulin. He was also given 1 L of IV bolus fluids.initial troponin is negative. CT abdomen and pelvis unremarkable. Urine positive for glucose. Acetone negative. Anion gap 8. Covid negative. She chely l be admitted for cardiac observation itchy continuous chest pain. NovoLog sliding scale. Case discussed with Dr. Katz Admitting physician is Consult cardiology - Lab Data Result diagrams: 06/29/20 15:24 06/29/20 15:24 Lab Results 06/29/20 06/29/20 06/29/20 Range/Units 14:28 14:35 15:14 WBC (3.8-10.6) k/uL RBC (4.30-5.90) m/uL Hgb (13.0-17.5) gm/dL Hct (39.0-53.0) % MCV (80.0-100.0) fL MCH (25.0-35.0) pg MCHC (31.0-37.0) g/dL RDW (11.5-15.5) % Plt Count (150-450) k/uL MPV Neutrophils % % Lymphocytes % % Monocytes % % Eosinophils % % Basophils % % Neutrophils # (1.3-7.7) k/uL Lymphocytes # (1.0-4.8) k/uL Monocytes # (0-1.0) k/uL Eosinophils # (0-0.7) k/uL Basophils # (0-0.2) k/uL PT (9.0-12.0) sec INR (<1.2) APTT (22.0-30.0) sec VBG pH (7.31-7.41) VBG pCO2 (37-51) mmHg VBG HCO3 (24-28) mmol/L Sodium (137-145) mmol/L Potassium (3.5-5.1) mmol/L Chloride (98-107) mmol/L Carbon Dioxide (22-30) mmol/L Anion Gap mmol/L BUN 41 H (9-20) mg/dL Creatinine 1.40 H (0.66-1.25) mg/dL Est GFR (CKD-EPI)AfAm 60 (>60 ml/min/1.73 sqM) Est GFR (CKD-EPI)NonAf 51 (>60 ml/min/1.73 sqM) Glucose (74-99) mg/dL POC Glucose (mg/dL) 499 H (75-99) mg/dL POC Glu Pressroom Worker ID Phoebe Coy Lactic Ac Sepsis Rflx Plasma Lactic Acid Harvinder (0.7-2.0) mmol/L Calcium (8.4-10.2) mg/dL Magnesium (1.6-2.3) mg/dL Total Bilirubin (0.2-1.3) mg/dL AST (17-59) U/L ALT (4-49) U/L Alkaline Phosphatase (38-126) U/L Troponin I <0.012 (0.000-0.034) ng/mL Total Protein (6.3-8.2) g/dL Albumin (3.5-5.0) g/dL Lipase (23-300) U/L Urine Color Urine Appearance (Clear) Urine pH (5.0-8.0) Ur Specific [place] (1.001-1.035) Urine Protein (Negative) Urine Glucose (UA) (Negative) Urine Ketones (Negative) Urine Blood (Negative) Urine Nitrite (Negative) Urine Bilirubin (Negative) Urine Urobilinogen (<2.0) mg/dL Ur Leukocyte Esterase (Negative) Acetone, Qual (Negative) Coronavirus (PCR) (Not Detectd) 06/29/20 06/29/20 06/29/20 Range/Units 15:14 15:24 15:24 WBC 7.9 (3.8-10.6) k/uL RBC 4.20 L (4.30-5.90) m/uL Hgb 13.0 (13.0-17.5) gm/dL Hct 38.2 L (39.0-53.0) % MCV 90.9 (80.0-100.0) fL MCH 30.8 (25.0-35.0) pg MCHC 33.9 (31.0-37.0) g/dL RDW 13.9 (11.5-15.5) % Plt Count 207 (150-450) k/uL MPV 7.6 Neutrophils % 75 % Lymphocytes % 16 % Monocytes % 6 % Eosinophils % 1 % Basophils % 1 % Neutrophils # 5.9 (1.3-7.7) k/uL Lymphocytes # 1.3 (1.0-4.8) k/uL Monocytes # 0.5 (0-1.0) k/uL Eosinophils # 0.1 (0-0.7) k/uL Basophils # 0.0 (0-0.2) k/uL PT 9.9 (9.0-12.0) sec INR 0.9 (<1.2) APTT 22.0 (22.0-30.0) sec VBG pH (7.31-7.41) VBG pCO2 (37-51) mmHg VBG HCO3 (24-28) mmol/L Sodium 133 L (137-145) mmol/L Potassium 5.4 H (3.5-5.1) mmol/L Chloride 100 (98-107) mmol/L Carbon Dioxide 25 (22-30) mmol/L Anion Gap 8 mmol/L BUN 41 H (9-20) mg/dL Creatinine 1.33 H (0.66-1.25) mg/dL Est GFR (CKD-EPI)AfAm 63 (>60 ml/min/1.73 sqM) Est GFR (CKD-EPI)NonAf 55 (>60 ml/min/1.73 sqM) Glucose 513 H* (74-99) mg/dL POC Glucose (mg/dL) (75-99) mg/dL POC Glu Pressroom Worker ID Lactic Ac Sepsis Rflx Plasma Lactic Acid Harvinder (0.7-2.0) mmol/L Calcium 9.3 (8.4-10.2) mg/dL Magnesium 1.8 (1.6-2.3) mg/dL Total Bilirubin 0.4 (0.2-1.3) mg/dL AST 36 (17-59) U/L ALT 43 (4-49) U/L Alkaline Phosphatase 186 H (38-126) U/L Troponin I (0.000-0.034) ng/mL Total Protein 6.3 (6.3-8.2) g/dL Albumin 3.7 (3.5-5.0) g/dL Lipase 87 (23-300) U/L Urine Color Urine Appearance (Clear) Urine pH (5.0-8.0) Ur Specific [place] (1.001-1.035) Urine Protein (Negative) Urine Glucose (UA) (Negative) Urine Ketones (Negative) Urine Blood (Negative) Urine Nitrite (Negative) Urine Bilirubin (Negative) Urine Urobilinogen (<2.0) mg/dL Ur Leukocyte Esterase (Negative) Acetone, Qual Negative (Negative) Coronavirus (PCR) (Not Detectd) 06/29/20 06/29/20 06/29/20 Range/Units 15:24 15:24 15:24 WBC (3.8-10.6) k/uL RBC (4.30-5.90) m/uL Hgb (13.0-17.5) gm/dL Hct (39.0-53.0) % MCV (80.0-100.0) fL MCH (25.0-35.0) pg MCHC (31.0-37.0) g/dL RDW (11.5-15.5) % Plt Count (150-450) k/uL MPV Neutrophils % % Lymphocytes % % Monocytes % % Eosinophils % % Basophils % % Neutrophils # (1.3-7.7) k/uL Lymphocytes # (1.0-4.8) k/uL Monocytes # (0-1.0) k/uL Eosinophils # (0-0.7) k/uL Basophils # (0-0.2) k/uL PT (9.0-12.0) sec INR (<1.2) APTT (22.0-30.0) sec VBG pH 7.41 (7.31-7.41) VBG pCO2 40 (37-51) mmHg VBG HCO3 25 (24-28) mmol/L Sodium (137-145) mmol/L Potassium (3.5-5.1) mmol/L Chloride (98-107) mmol/L Carbon Dioxide (22-30) mmol/L Anion Gap mmol/L BUN (9-20) mg/dL Creatinine (0.66-1.25) mg/dL Est GFR (CKD-EPI)AfAm (>60 ml/min/1.73 sqM) Est GFR (CKD-EPI)NonAf (>60 ml/min/1.73 sqM) Glucose (74-99) mg/dL POC Glucose (mg/dL) (75-99) mg/dL POC Glu Pressroom Worker ID Lactic Ac Sepsis Rflx Plasma Lactic Acid Harvinder 2.1 H* (0.7-2.0) mmol/L Calcium (8.4-10.2) mg/dL Magnesium (1.6-2.3) mg/dL Total Bilirubin (0.2-1.3) mg/dL AST (17-59) U/L ALT (4-49) U/L Alkaline Phosphatase (38-126) U/L Troponin I (0.000-0.034) ng/mL Total Protein (6.3-8.2) g/dL Albumin (3.5-5.0) g/dL Lipase (23-300) U/L Urine Color Urine Appearance (Clear) Urine pH (5.0-8.0) Ur Specific [place] (1.001-1.035) Urine Protein (Negative) Urine Glucose (UA) (Negative) Urine Ketones (Negative) Urine Blood (Negative) Urine Nitrite (Negative) Urine Bilirubin (Negative) Urine Urobilinogen (<2.0) mg/dL Ur Leukocyte Esterase (Negative) Acetone, Qual (Negative) Coronavirus (PCR) Not Detected (Not Detectd) 06/29/20 06/29/20 06/29/20 Range/Units 15:34 16:15 16:25 WBC (3.8-10.6) k/uL RBC (4.30-5.90) m/uL Hgb (13.0-17.5) gm/dL Hct (39.0-53.0) % MCV (80.0-100.0) fL MCH (25.0-35.0) pg MCHC (31.0-37.0) g/dL RDW (11.5-15.5) % Plt Count (150-450) k/uL MPV Neutrophils % % Lymphocytes % % Monocytes % % Eosinophils % % Basophils % % Neutrophils # (1.3-7.7) k/uL Lymphocytes # (1.0-4.8) k/uL Monocytes # (0-1.0) k/uL Eosinophils # (0-0.7) k/uL Basophils # (0-0.2) k/uL PT (9.0-12.0) sec INR (<1.2) APTT (22.0-30.0) sec VBG pH (7.31-7.41) VBG pCO2 (37-51) mmHg VBG HCO3 (24-28) mmol/L Sodium (137-145) mmol/L Potassium (3.5-5.1) mmol/L Chloride (98-107) mmol/L Carbon Dioxide (22-30) mmol/L Anion Gap mmol/L BUN (9-20) mg/dL Creatinine (0.66-1.25) mg/dL Est GFR (CKD-EPI)AfAm (>60 ml/min/1.73 sqM) Est GFR (CKD-EPI)NonAf (>60 ml/min/1.73 sqM) Glucose (74-99) mg/dL POC Glucose (mg/dL) 412 H (75-99) mg/dL POC Glu Pressroom Worker LIBERTAD Hilario Cuevas Lactic Ac Sepsis Rflx Y Plasma Lactic Acid Harvinder (0.7-2.0) mmol/L Calcium (8.4-10.2) mg/dL Magnesium (1.6-2.3) mg/dL Total Bilirubin (0.2-1.3) mg/dL AST (17-59) U/L ALT (4-49) U/L Alkaline Phosphatase (38-126) U/L Troponin I (0.000-0.034) ng/mL Total Protein (6.3-8.2) g/dL Albumin (3.5-5.0) g/dL Lipase (23-300) U/L Urine Color Yellow Urine Appearance Clear (Clear) Urine pH 6.5 (5.0-8.0) Ur Specific [place] 1.020 (1.001-1.035) Urine Protein Negative (Negative) Urine Glucose (UA) 4+ H (Negative) Urine Ketones Negative (Negative) Urine Blood Negative (Negative) Urine Nitrite Negative (Negative) Urine Bilirubin Negative (Negative) Urine Urobilinogen <2.0 (<2.0) mg/dL Ur Leukocyte Esterase Negative (Negative) Acetone, Qual (Negative) Coronavirus (PCR) (Not Detectd) Disposition Clinical Impression: Hyperglycemia, Chest pain, Bronchitis Disposition: ADMITTED IP TO THIS HOSP Condition: Fair Is patient prescribed a controlled substance at d/c from ED?: No Referrals: Newton Lloyd MD [Primary Care Provider] - 1-2 days Time of Disposition: 18:36
[2020-06-29 15:47] LABS: Basophils % (A) 1 %; Eosinophils # (A) 0.1 k/uL (0-0.7); Eosinophils % (A) 1 %; HCT 38.2 % (39.0-53.0); Lymphocytes # (A) 1.3 k/uL (1.0-4.8); Lymphocytes % (A) 16 %; MCH 30.8 pg (25.0-35.0); MCHC 33.9 g/dL (31.0-37.0); MCV 90.9 fL (80.0-100.0); Mean Platelet Volume 7.6; Monocytes # (A) 0.5 k/uL (0-1.0); Monocytes % (A) 6 %; Neutrophils # (A) 5.9 k/uL (1.3-7.7); Neutrophils % (A) 75 %; Platelet Count 207 k/uL (150-450); RDW 13.9 % (11.5-15.5); WBC 7.9 k/uL (3.8-10.6)
[2020-06-29 15:48] LABS: VBG PH 7.41 (7.31-7.41)
[2020-06-29 15:49] LABS: Appearance,Urine Clear (Clear); Bilirubin,Urine Negative (Negative); Blood,Urine Negative (Negative); Color,Urine Yellow; Glucose,Urine (UA) 4+ (Negative); Ketones,Urine Negative (Negative); Leukocyte Esterase,Urine Negative (Negative); Nitrite,Urine Negative (Negative); PH, Urine 6.5 (5.0-8.0); Protein,Urine Negative (Negative); Urobilinogen,Urine <2.0 mg/dL (<2.0)
[2020-06-29 15:57] LABS: ALT 43 U/L (4-49); AST 36 U/L (17-59); African American GFR (CKD) 63 (>60 ml/min/1.73 sqM); Albumin 3.7 g/dL (3.5-5.0); Alkaline Phosphatase 186 U/L (38-126); Anion Gap 8 mmol/L; Blood Urea Nitrogen 41 mg/dL (9-20); Calcium 9.3 mg/dL (8.4-10.2); Carbon Dioxide 25 mmol/L (22-30); Chloride 100 mmol/L (98-107); Lipase 87 U/L (23-300); Magnesium 1.8 mg/dL (1.6-2.3); Non-African American GFR(CKD) 55 (>60 ml/min/1.73 sqM); Potassium 5.4 mmol/L (3.5-5.1); Sodium 133 mmol/L (137-145); Total Bilirubin 0.4 mg/dL (0.2-1.3); Total Protein 6.3 g/dL (6.3-8.2)
--- NOTE | 2020-06-29 16:01 | XR ---
EXAMINATION TYPE: XR chest 2V DATE OF EXAM: 06/29/2020 COMPARISON: 12/22/2019 HISTORY: 70-year-old male with cough TECHNIQUE: PA and lateral views FINDINGS: Heart upper limits of normal in size. Aorta and pulmonary vasculature within normal limits. Increased interstitial changes throughout. No pleural effusion. IMPRESSION: Increased interstitial densities appear in part chronic but are slightly increased. Correlate for bro nchitis, chronic asthma, or atypical pneumonias.
[2020-06-29 16:02] LABS: Glucose 513 mg/dL (74-99)
--- NOTE | 2020-06-29 16:02 | XR ---
EXAMINATION TYPE: XR KUB DATE OF EXAM: 06/29/2020 Comparison: 05/14/2018 Clinical History: 70-year-old male abdominal pain Findings: No evidence for free intraperitoneal air. A lap band device is in place. Suspected prominent fluid or debris distending the stomach. Scattered mild stool burden. No dilated small bowel or air-fluid leve ls. Pelvic lymph nodes. Impression: Lap-band device is present. Suspect prominent fluid and ingested debris distending the stomach. No ev idence for free air or bowel obstruction.
[2020-06-29 16:08] LABS: INR 0.9 (<1.2); Prothrombin Time 9.9 sec (9.0-12.0)
[2020-06-29 16:26] LABS: Glucose,Whole Blood 412 mg/dL (75-99)
--- NOTE | 2020-06-29 17:42 | CT ---
EXAMINATION TYPE: CT abdomen pelvis w con DATE OF EXAM: 06/29/2020 COMPARISON: CT abdomen and pelvis April 05, 2019 HISTORY: Abdominal pain not further specified. CT DLP: 2967 mGycm, Automated Exposure Control for Dose Reduction was Utilized. CONTRAST: CT scan of the abdomen and pelvis is performed with oral and with IV Contrast, patient injected with 100 mL of Isovue 300. FINDINGS: LUNG BASES: No significant abnormality is appreciated. LIVER/GB: Liver is low dense suggesting diffuse fatty infiltration. PANCREAS: No significant abnormality is seen. SPLEEN: No significant abnormality is seen. ADRENALS: No significant abnormality is seen. KIDNEYS: There is 2.5 cm thin-walled cyst left kidney lower pole level image 44 delayed axial image. BOWEL: The LAP-BAND device is stable and satisfactory in position. No suspicious small bowel dilatati on. Oral contrast reaches the level of the mid to distal transverse colon. No suspicious small or lar ge bowel dilatation. Sigmoid colonic diverticula. No CT evidence for acute diverticulitis. PROSTATE/SEMINAL VESICLES: Scattered bilateral small pelvic phleboliths. LYMPH NODES: No greater than 1cm abdominal or pelvic lymph nodes are appreciated. OSSEOUS STRUCTURES: Persistent mild to moderate height loss with endplate sclerosis involving the inf erior L1 vertebra. Moderate disc space narrowing at this level is present. Facet arthropathy lower kami mbar levels. Moderate to severe joint space loss both hips right greater than left is redemonstrated. OTHER: No significant additional abnormality is seen. IMPRESSION: No significant new or acute finding is seen to account for patient's clinical symptoms.
[2020-06-29] MEDS ORDERED: NALOXONE 0.4 MG/ML 1 ML VIAL IV PRN (18:34)
[2020-06-29] MEDS ORDERED: oxyCODONE-APAP 5-325MG 1 EACH TAB PO STA (18:36)
[2020-06-29] MEDS: SODIUM CHLORIDE 0.9% 1,000 ML IV SCH (19:43)
[2020-06-29] MEDS ORDERED: AZITHROMYCIN 500 MG TAB PO STA (20:30)
[2020-06-29 21:18] LABS: Glucose,Whole Blood 408 mg/dL (75-99)
[2020-06-29] MEDS: INSULIN ASPART (NovoLOG) 100 UNIT/ML VIAL SQ SCH (21:21)
[2020-06-30] MEDS: MORPHINE SULFATE 4 MG/ML SYRINGE IV PRN (02:11)
[2020-06-30 07:50] LABS: Glucose,Whole Blood 335 mg/dL (75-99)
[2020-06-30] MEDS: METOPROLOL SUCCINATE (ER) 25 MG TAB.ER.24H PO SCH (07:57)
[2020-06-30] MEDS: lisinopriL 20 MG TAB PO SCH ×2 (07:57→22:16)
[2020-06-30] MEDS: CLOPIDOGREL 75 MG TAB PO SCH (07:57)
[2020-06-30] MEDS: ASPIRIN 81 MG PO SCH (07:57)
[2020-06-30] MEDS: TAMSULOSIN 0.4 MG CAP.ER.24H PO SCH (07:57)
[2020-06-30] MEDS: allopurinoL 300 MG TAB PO SCH (07:57)
[2020-06-30] MEDS: INSULIN ASPART (NovoLOG) 100 UNIT/ML VIAL SQ SCH ×4 (08:04→22:17)
[2020-06-30] MEDS: SODIUM CHLORIDE 0.9% 1,000 ML IV SCH ×2 (08:05→22:23)
--- NOTE | 2020-06-30 08:33 | CONS ---
CONSULTATION Mr. Egan is a 70-year-old male with known history of hypertension, hyperlipidemia, and diabetes mellitus who presented to undergo a CT scan of the abdomen, apparently he was quite uncomfortable. He was diaphoretic, was sent to the emergency room and subsequently admitted. The patient has been followed by a elementary reading tutor in [place] and has underwent a stenting according to him 5 months ago, although details of that are not available to me. He has chronic dyspnea on exertion. He has been seen by Dr. Melendez in the past. He carries the diagnosis COPD, although does not smoke. He has been complaining of abdominal discomfort and was scheduled to undergo the CT scan before that. He has been complaining of progressive dyspnea, coughing with sputum. He is not quite sure about the color. He has no fever. He has chest discomfort that according to him is worse with deep breathing and coughing. He has peripheral edema. No clear PND. No orthopnea. He is not very active physically. He has history of morbid obesity and has underwent lap banding in the past and he has been evaluated for gastric sleeve. He feels dizzy at times. His coronary risk factors are remarkable for history of hypertension, hyperlipidemia, diabetes. He is a nonsmoker. MEDICATIONS: His medications include aspirin once a day, Lipitor 40 mg daily, Plavix 75 mg daily, Vasotec 20 mg twice a day, Lasix 40 mg daily, insulin, Trulicity, metoprolol succinate 25 mg daily, Flomax, metformin 500 mg twice a day. REVIEW OF SYSTEMS: RESPIRATORY SYSTEM: He has dyspnea on exertion and cough. He carries diagnosis of obstructive lung disease and has been followed by Dr. Melendez. GI SYSTEM: He has abdominal pain and prior history of diverticulitis. He has no nausea. SYSTEM: He had a prior history of urinary tract infection and history of nephrolithiasis. NERVOUS SYSTEM: No stroke or seizure. SOCIAL HISTORY: He drinks an alcoholic drink every other day according to him and he is a nonsmoker. PHYSICAL EXAMINATION: A 70-year-old male, alert, morbidly obese, mildly dyspneic. Blood pressure 116/80 with the heart rate in the 70s. HEAD: Normocephalic. EYES: Sclerae anicteric. NECK: Good carotid upstroke. No bruit. LUNGS: With no wheezes or rales. HEART: Regular rate and rhythm. S1, S2. No S3. No rub or gallop. ABDOMEN: Soft, nontender, obese. Positive bowel sounds. No organomegaly. EXTREMITIES: +1 edema. LAB DATA: Lab data revealed a blood sugar on admission of 499, subsequently this morning of 513. BUN and creatinine 41 and 1.33, which is worse than it was in the last year. Potassium 5.4, hemoglobin of 13. His initial troponin less than 0.012. NT proBNP of 82. His plasma lactic acid was 2.1. His EKG revealed a sinus mechanism with right bundle branch block that was noted in the past. No acute changes. His chest x-ray raised the question of bronchitis. His abdominal x-ray showed no evidence of obstruction. Abdomen and pelvis CT showed no acute changes. IMPRESSION: 1. Symptoms of progressive dyspnea with cough, rule out bronchitis. On examination, no evidence of pneumonia. 2. History of coronary artery disease, details not available, status post stenting according to the patient 5 months ago with no evidence of acute coronary syndrome. 3. History of hypertension. 4. Hyperlipidemia. 5. Diabetes mellitus. 6. Morbid obesity. 7. Renal failure, new. RECOMMENDATION: From the cardiac standpoint, I will try to obtain the results of his prior workup and stenting. The patient has no prior history of documented impairment of left ventricular systolic function. We will repeat his echocardiogram. I will obtain serial enzymes and depending on the results of his testing, further recommendation will be made. Thank you for this consult. We will follow with you. [facility] / HORACE: [id number] /
[2020-06-30 08:41] LABS: Cholesterol 150 mg/dL (<200); HDL Cholesterol 31 mg/dL (40-60); LDL Cholesterol,Calculated 68 mg/dL (0-99); Triglycerides 257 mg/dL (<150)
[2020-06-30] MEDS ORDERED: FUROSEMIDE 40 MG TAB PO SCH (09:00)
[2020-06-30] MEDS ORDERED: lisinopriL 20 MG TAB PO SCH (09:00)
[2020-06-30 11:43] LABS: Glucose,Whole Blood 304 mg/dL (75-99)
--- NOTE | 2020-06-30 11:48 | ECHOF ---
Referral Reason:cp MEASUREMENTS -------- HEIGHT: 182.9 cm WEIGHT: 164.2 kg BP: 154/80 RVIDd: 4.5 cm (< 3.3) IVSd: 1.5 cm (0.6 - 1.1) LVIDd: 4.3 cm (3.9 - 5.3) LVPWd: 1.4 cm (0.6 - 1.1) IVSs: 1.6 cm LVIDs: 2.9 cm LVPWs: 1.3 cm LAESV Index (A-L): 18.21 ml/m Ao Diam: 3.4 cm (2.0 - 3.7) AV Cusp: 2.5 cm (1.5 - 2.6) MV EXCURSION: 18.018 mm (> 18.000) MV EF SLOPE: 85 mm/s (70 - 150) EPSS: 0.6 cm MV E Farhat: 0.50 m/s MV DecT: 287 ms MV A Farhat: 0.73 m/s MV E/A Ratio: 0.69 RAP: 5.00 mmHg RVSP: 15.34 mmHg FINDINGS -------- Sinus rhythm. This was a technically difficult study with suboptimal views. The left ventricular size is normal. There is moderate concentric left ventricular hypertrophy. O verall left ventricular systolic function is normal with, an EF between 55 - 60 %. The right ventricle is severely enlarged. Normal LA size by volume 22+/-6 ml/m2. The right atrium is mildly enlarged. 5.0mg of Lumason was utilized for enhancement of images Interatrial and interventricular septum intact. The aortic valve was not well visualized. The mitral valve is normal. No mitral regurgitation. The tricuspid valve appears structurally normal. Mild tricuspid regurgitation present. Right vent ricular systolic pressure is normal at < 35 mmHg. The right ventricular systolic pressure, as measu red by Doppler, is 15.34mmHg. There is no pulmonic regurgitation present. The aortic root size is normal. There is no pericardial effusion. CONCLUSIONS -------- 1. This was a technically difficult study with suboptimal views. 2. There is moderate concentric left ventricular hypertrophy. 3. Overall left ventricular systolic function is normal with, an EF between 55 - 60 %. 4. The right ventricle is severely enlarged. 5. Normal LA size by volume 22+/-6 ml/m2. 6. The right atrium is mildly enlarged. 7. The aortic valve was not well visualized. 8. The mitral valve is normal. 9. Mild tricuspid regurgitation present. 10. There is no pericardial effusion. MANAGER BUSINESS SYSTEMS: Julia Riley RDCS
[2020-06-30 12:32] VITALS: BMI 49.1
--- NOTE | 2020-06-30 14:48 | P.PN ---
Progress Note - Text Cardiology Follow Up: Patient's echocardiogram reviewed- EF 55-60%. Troponin negative x 3. Cardiac catheterization on 02/24/2020 from [facility] reviewed mid-vessel lesion in LAD- successful PCI to the MID LAD 85% stensois with DILAN reduced to 0%. Left circumflex mild diffuse disease. Right coronary mild diffuse disease. From cardiac perspective, ok to discharge patient. Patient should follow up with his resizer operator in [place] as scheduled.
[2020-06-30 16:06] LABS: Appearance,Urine Clear (Clear); Bilirubin,Urine Negative (Negative); Blood,Urine Negative (Negative); Color,Urine Yellow; Glucose,Urine (UA) 4+ (Negative); Ketones,Urine Negative (Negative); Leukocyte Esterase,Urine Negative (Negative); Nitrite,Urine Negative (Negative); PH, Urine 6.5 (5.0-8.0); Protein,Urine Negative (Negative); Specific Gravity,Urine 1.017 (1.001-1.035); Urobilinogen,Urine <2.0 mg/dL (<2.0)
[2020-06-30 16:57] LABS: Glucose,Whole Blood 312 mg/dL (75-99)
[2020-06-30 18:31] LABS: Hemoglobin A1C 12.3 % (4.0-6.0)
--- NOTE | 2020-06-30 20:47 | P.HPIM ---
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 Patient was also complaining of abdominal pain and diarrhea at home. Patient states that he ate 4 hotdogs yesterday and since then he has been having abdominal discomfort. No diarrhea currently. Does have nausea with no associated vomiting. Patient denies any complaints of chest pain. CT of the abdomen pelvis was ordered due to concern for diverticulitis.. While he was getting CAT scan he became diaphoretic and was having palpitations and blood sugar was checked and found to be greater than 499. Patient was brought to ER. Patient states that he feels disorientated and was having intermittent chest pain. No associated shortness of breath. Patient does complain of dizziness and felt like room spinning and about 2 passed out. Patient states that he has been having generalized weakness and subjective fevers at home. Patient states that he may have infection which caused his blood sugars going high. In the ER blood pressure was 135/70 and pulse ox 96% on room air and patient has been afebrile. Laboratory data showed WBC 7.9, hemoglobin 13.0 and platelets 207 INR 0.9 and sodium 133 potassium 5.4 BUN 41 and creatinine 1.33 and lactic acid level 2.1 and A1c level 12.3 and alk phos 186 troponin x1 - and proBNP 82 UA is negative for infection and Is still negative and coronavirus PCR negative, LDL 68 EKG showed normal sinus rhythm CT of the abdomen pelvis showed no significant new or acute findings is seen account for patient's clinical symptoms. Chest x-ray showed increasing interstitial densities appear in part chronic but a slightly increased. Correlate for bronchitis, chronic asthma or atypical pneumonias KUB x-ray showed a LAP-BAND device and present. Suspect prominent fluid and ingested debris is distended to the stomach. No evidence for free air or bowel obstruction. Review of Systems Constitutional: Patient denies any fever or chills . + Generalized weakness . no weight loss. Abdomen: Patient does have abdominal discomfort and nausea. No diarrhea.. Cardiovascular: Patient denies any chest pain or short of breath no palpitations. Respiratory: patient does have cough. no or sputum production. + shortness of breath Neurologic: Patient denied any numbness or tingling headache. Musculoskeletal: Patient denies any complaints of joint swelling or deformity. Skin: Negative Psychiatric: Negative Endocrine: No heat or cold intolerance. No recent weight gain. Genitourinary: No dysuria or hematuria. All other 14 point ROS negative except the above Past Medical History Past Medical History: Coronary Artery Disease (CAD), Heart Failure, COPD, Diabetes Mellitus, Hypertension Additional Past Medical History / Comment(s): Lyme Disease History of Any Multi-Drug Resistant Organisms: None Reported Past Surgical History: Heart Catheterization With Stent, Orthopedic Surgery Additional Past Surgical History / Comment(s): right knee, lap abnd surgery, colonoscopy, kidney stones Past Anesthesia/Blood Transfusion Reactions: No Reported Reaction Date of Last Stent Placement:: 02/24/2020 Past Psychological History: No Psychological Hx Reported Smoking Status: Never smoker Past Alcohol Use History: Occasional Past Drug Use History: None Reported Medications and Allergies Home Medications Medication Instructions Recorded Confirmed Type Enalapril [Vasotec] 20 mg PO BID 05/04/15 06/29/20 History Allopurinol [Zyloprim] 300 mg PO DAILY 12/21/19 06/29/20 History Insulin Glargine,Hum.rec.anlog 150 units SQ 12/21/19 06/29/20 History [Yordan Hankins] metFORMIN HCL [metFORMIN HCL ER] 500 mg PO BID 12/21/19 06/29/20 History Atorvastatin Calcium [Lipitor] 40 mg PO 03/02/20 06/29/20 History Clopidogrel Bisulfate [Plavix] 75 mg PO DAILY 03/02/20 06/29/20 History Furosemide [Lasix] 40 mg PO DAILY 03/02/20 06/29/20 History Insulin Aspart (Niacinamide) 30 units SQ AC-TID 03/02/20 06/29/20 History [Fiasp 100 Unit/ml Vial] Metoprolol Succinate (ER) [Toprol 25 mg PO DAILY 03/02/20 06/29/20 History Xl] Tamsulosin HCl [Flomax] 0.4 mg PO DAILY 03/02/20 06/29/20 History Dulaglutide [Trulicity] 1.5 mg SQ TH 06/19/20 06/29/20 History Albuterol Inhaler [Ventolin Hfa 2 puff INHALATION RT-QID PRN 06/29/20 06/29/20 History Inhaler] Aspirin EC [Ecotrin Low Dose] 81 mg PO DAILY 06/29/20 06/29/20 History Cholecalciferol [Vitamin D3 (25 125 mcg PO DAILY 06/29/20 06/29/20 History Mcg = 1000 Iu)] Comfort-Max 1 tab PO DAILY 06/29/20 06/29/20 History Joint Relief Supplements 1 tab PO DAILY 06/29/20 06/29/20 History oxyCODONE-APAP 5-325MG [Percocet 1 tab PO DAILY PRN 06/29/20 06/29/20 History 5-325 mg] Allergies Allergy/AdvReac Type Severity Reaction Status Date / Time ciprofloxacin Allergy Nausea & Verified 06/29/20 15:39 Vomiting levofloxacin [From Levaquin] Allergy Unknown Verified 06/29/20 15:39 Penicillins Allergy Rash/Hives Verified 06/29/20 15:39 Physical Exam Vitals: Vital Signs Temp Pulse Pulse Resp BP BP Pulse Ox 06/30/20 07:25 97.5 F L 64 20 154/80 93 L 06/30/20 07:06 98.6 F 72 20 116/86 96 06/29/20 22:32 80 18 104/61 98 06/29/20 19:43 68 18 133/61 98 06/29/20 19:30 68 18 113/61 100 06/29/20 19:00 64 18 117/87 98 06/29/20 18:00 62 134/84 99 06/29/20 17:23 80 18 118/95 97 06/29/20 14:40 98.1 F 85 18 135/70 96 Intake and Output 06/29/20 06/30/20 06/30/20 22:59 06:59 14:59 Other: Voiding Method Toilet Weight 164.2 kg PHYSICAL EXAMINATION: Patient is lying in the bed comfortably, no acute distress, awake alert and oriented.. Morbidly obese. HEENT: Normocephalic. Neck is supple. Pupils reactive. Nostrils clear. Oral cavity is moist. Ears reveal no drainage. Neck reveals no JVD, carotid bruits, or thyromegaly. CHEST EXAMINATION: Trachea is central. Symmetrical expansion.Bibasilar di minished air entry. No wheezing no rhonchi. CARDIAC: Normal S1, S2 with no gallops. No murmurs ABDOMEN: Soft. Obese ,Bowel sounds normal. No organomegaly. No abdominal bruits. Extremities: reveal no edema. No clubbing or cyanosis Neurologically awake, alert, oriented x3 with well-coordinated movements. No focal deficits noted Skin: No rash or skin lesions. Psychiatric: Coperative. Nonsuicidal Musculoskeletal: No joint swelling or deformity. Normal range of motion. Results CBC & Chem 7: 06/29/20 15:24 06/29/20 15:24 Labs: Abnormal Lab Results - Last 24 Hours (Table) 06/29/20 06/29/20 06/29/20 Range/Units 14:28 14:35 15:24 RBC 4.20 L (4.30-5.90) m/uL Hct 38.2 L (39.0-53.0) % Sodium (137-145) mmol/L Potassium (3.5-5.1) mmol/L BUN 41 H (9-20) mg/dL Creatinine 1.40 H (0.66-1.25) mg/dL Glucose (74-99) mg/dL POC Glucose (mg/dL) 499 H (75-99) mg/dL Plasma Lactic Acid Harvinder (0.7-2.0) mmol/L Alkaline Phosphatase (38-126) U/L Triglycerides (<150) mg/dL HDL Cholesterol (40-60) mg/dL Urine Glucose (UA) (Negative) 06/29/20 06/29/20 06/29/20 Range/Units 15:24 15:24 15:34 RBC (4.30-5.90) m/uL Hct (39.0-53.0) % Sodium 133 L (137-145) mmol/L Potassium 5.4 H (3.5-5.1) mmol/L BUN 41 H (9-20) mg/dL Creatinine 1.33 H (0.66-1.25) mg/dL Glucose 513 H* (74-99) mg/dL POC Glucose (mg/dL) (75-99) mg/dL Plasma Lactic Acid Harvinder 2.1 H* (0.7-2.0) mmol/L Alkaline Phosphatase 186 H (38-126) U/L Triglycerides (<150) mg/dL HDL Cholesterol (40-60) mg/dL Urine Glucose (UA) 4+ H (Negative) 06/29/20 06/29/20 06/30/20 Range/Units 16:25 21:16 07:37 RBC (4.30-5.90) m/uL Hct (39.0-53.0) % Sodium (137-145) mmol/L Potassium (3.5-5.1) mmol/L BUN (9-20) mg/dL Creatinine (0.66-1.25) mg/dL Glucose (74-99) mg/dL POC Glucose (mg/dL) 412 H 408 H 335 H (75-99) mg/dL Plasma Lactic Acid Harvinder (0.7-2.0) mmol/L Alkaline Phosphatase (38-126) U/L Triglycerides (<150) mg/dL HDL Cholesterol (40-60) mg/dL Urine Glucose (UA) (Negative) 06/30/20 Range/Units 07:45 RBC (4.30-5.90) m/uL Hct (39.0-53.0) % Sodium (137-145) mmol/L Potassium (3.5-5.1) mmol/L BUN (9-20) mg/dL Creatinine (0.66-1.25) mg/dL Glucose (74-99) mg/dL POC Glucose (mg/dL) (75-99) mg/dL Plasma Lactic Acid Harvinder (0.7-2.0) mmol/L Alkaline Phosphatase (38-126) U/L Triglycerides 257 H (<150) mg/dL HDL Cholesterol 31 L (40-60) mg/dL Urine Glucose (UA) (Negative) Thrombosis Risk Factor Assmnt - Choose All That Apply Each Risk Factor Represents 2 Points: Age 61-74 years Thrombosis Risk Factor Assessment Total Risk Factor Score: 2 Thrombosis Risk Factor Assessment Level: Low Risk Assessment and Plan Assessment: Cough with worsening shortness of breath likely due to acute bronchitis. No pneumonia noted on the chest x-ray. Unlikely CHF with a BNP level 82. Abdominal discomfort/pain. CT abdomen showed no acute process. Coronary disease history of stent placement in February 2020. Hyperglycemia with uncontrolled diabetes type 2 A1c 12.3 Mild lactic acidosis Morbid obesity BMI 49.1 History of lap band surgery Hyperlipidemia Acute kidney injury likely prerenal DVT prophylaxis with heparin subcu Plan: Patient will be continued on telemetry monitoring. Symptomatic bradycardia and for nausea and pain management. Continue with azithromycin and breathing treatments as needed. Stool softeners as needed. Patient was seen by cardiology and 2D echocardiogram was ordered. Previous medical records from other hospital will be obtained. Continue with the current management and insulin dosing and patient was counseled extensively for com pliance of medications. Further recommendations based on clinical course. Prognosis guarded at this time. Time with Patient: Greater than 30
[2020-06-30] MEDS ORDERED: INSULIN DETEMIR (LEVEMIR) 100 UNIT/ML SYR SQ SCH (21:00)
[2020-06-30] MEDS ORDERED: ATORVASTATIN 40 MG TAB PO SCH (21:00)
[2020-06-30 22:12] LABS: Glucose,Whole Blood 337 mg/dL (75-99)
[2020-06-30] MEDS: AZITHROMYCIN 500 MG TAB PO SCH (22:16)
[2020-06-30] MEDS: metFORMIN 500 MG TAB PO SCH (22:17)
[2020-06-30] MEDS: HEPARIN SODIUM,PORCINE 5,000 UNIT/ML 1 ML VIAL SQ SCH (22:18)
[2020-07-01 06:09] LABS: African American GFR (CKD) >90 (>60 ml/min/1.73 sqM); Anion Gap 5 mmol/L; Blood Urea Nitrogen 28 mg/dL (9-20); Calcium 9.1 mg/dL (8.4-10.2); Carbon Dioxide 25 mmol/L (22-30); Chloride 106 mmol/L (98-107); Glucose 266 mg/dL (74-99); Non-African American GFR(CKD) 82 (>60 ml/min/1.73 sqM); Potassium 4.5 mmol/L (3.5-5.1); Sodium 136 mmol/L (137-145)
[2020-07-01 06:17] LABS: Basophils % (A) 1 %; Eosinophils # (A) 0.2 k/uL (0-0.7); Eosinophils % (A) 3 %; HCT 35.5 % (39.0-53.0); HGB 12.3 gm/dL (13.0-17.5); Lymphocytes # (A) 1.7 k/uL (1.0-4.8); Lymphocytes % (A) 26 %; MCH 30.9 pg (25.0-35.0); MCHC 34.6 g/dL (31.0-37.0); MCV 89.4 fL (80.0-100.0); Mean Platelet Volume 7.3; Monocytes # (A) 0.5 k/uL (0-1.0); Monocytes % (A) 8 %; Neutrophils # (A) 4.2 k/uL (1.3-7.7); Neutrophils % (A) 62 %; Platelet Count 186 k/uL (150-450); RBC 3.97 m/uL (4.30-5.90); RDW 13.8 % (11.5-15.5); WBC 6.8 k/uL (3.8-10.6)
[2020-07-01 07:04] LABS: Glucose,Whole Blood 199 mg/dL (75-99)
[2020-07-01] MEDS: AZITHROMYCIN 500 MG TAB PO SCH (07:45)
[2020-07-01] MEDS: metFORMIN 500 MG TAB PO SCH (07:45)
[2020-07-01] MEDS: allopurinoL 300 MG TAB PO SCH (07:45)
[2020-07-01] MEDS: lisinopriL 20 MG TAB PO SCH (07:45)
[2020-07-01] MEDS: CLOPIDOGREL 75 MG TAB PO SCH (07:45)
[2020-07-01] MEDS: INSULIN ASPART (NovoLOG) 100 UNIT/ML VIAL SQ SCH ×4 (07:45→12:22)
[2020-07-01] MEDS: ASPIRIN 81 MG PO SCH (07:45)
[2020-07-01] MEDS: TAMSULOSIN 0.4 MG CAP.ER.24H PO SCH (07:45)
[2020-07-01] MEDS: METOPROLOL SUCCINATE (ER) 25 MG TAB.ER.24H PO SCH (07:45)
[2020-07-01] MEDS: HEPARIN SODIUM,PORCINE 5,000 UNIT/ML 1 ML VIAL SQ SCH (07:46)
[2020-07-01] MEDS: MORPHINE SULFATE 4 MG/ML SYRINGE IV PRN (07:51)
[2020-07-01 08:08] VITALS: BP 129/79; PULSE 63; RESP 16; TEMP 97.7
[2020-07-01] MEDS: SODIUM CHLORIDE 0.9% 1,000 ML IV SCH (11:06)
[2020-07-01 11:15] LABS: Glucose,Whole Blood 237 mg/dL (75-99)
[2020-07-04 13:30] LABS: Glucose,Whole Blood 533 mg/dL (75-99)
== END 2020-07-01 16:02 | disposition home or self-care (01) ==
LOC: EC 14:39 → EDSTATUS 16:20 → 6NMEDSUR 19:25
PROVIDERS: ADMIT Internal Medicine; ATTEND Internal Medicine
DX: R10.9 Unspecified abdominal pain (principal); R42 Dizziness and giddiness; R19.7 Diarrhea, unspecified; E87.2 Acidosis; R00.1 Bradycardia, unspecified; R05 Cough; R06.02 Shortness of breath; R61 Generalized hyperhidrosis; R00.2 Palpitations; R07.89 Other chest pain; R30.0 Dysuria; E66.01 Morbid (severe) obesity due to excess calories; Z68.42 Body mass index [BMI] 45.0-49.9, adult; J44.9 Chronic obstructive pulmonary disease, unspecified; I25.10 Atherosclerotic heart disease of native coronary artery without angina pectoris; T38.3X6A Underdosing of insulin and oral hypoglycemic [antidiabetic] drugs, initial encounter; I50.9 Heart failure, unspecified; A69.20 Lyme disease, unspecified; J44.0 Chronic obstructive pulmonary disease with (acute) lower respiratory infection; E11.65 Type 2 diabetes mellitus with hyperglycemia; E78.5 Hyperlipidemia, unspecified; I11.0 Hypertensive heart disease with heart failure; N17.9 Acute kidney failure, unspecified; Z79.899 Other long term (current) drug therapy; Z79.02 Long term (current) use of antithrombotics/antiplatelets; Z79.4 Long term (current) use of insulin; Z79.82 Long term (current) use of aspirin; Z79.891 Long term (current) use of opiate analgesic; Z88.0 Allergy status to penicillin; Z88.1 Allergy status to other antibiotic agents; Z95.5 Presence of coronary angioplasty implant and graft; Z87.442 Personal history of urinary calculi; Z98.84 Bariatric surgery status; Z20.822 Contact with and (suspected) exposure to COVID-19; Z87.19 Personal history of other diseases of the digestive system; Z87.440 Personal history of urinary (tract) infections
CPT/HCPCS: 96376; 96361 ×3; 96372 ×2; 96374; 99285; 36415 ×2; 93005; 83880; 80061; 80053; 80048; 82565; 82803; 82009; 83605; 83690; 83735; 84520; 84484 ×2; 85025 ×2; 85610; 85730; 81003 ×2; 83036; 87635; 71046; 74018; 74177; G0378 ×3; C8929; J2270 ×2; J1644 ×2; Q9950; Q9967 ×2; 93306

== ENCOUNTER 2020-07-28 13:03 | Inpatient (IN) | payer MEDICARE ==
[2020-07-28] MEDS ORDERED: ALBUTEROL NEBULIZED 2.5 MG/3 ML INHALATION STA (14:03)
[2020-07-28] MEDS ORDERED: IPRATROPIUM 0.5 MG/2.5 ML NEBU INHALATION STA (14:03)
[2020-07-28] MEDS ORDERED: ACETAMINOPHEN TAB 500 MG TAB PO STA (14:04)
[2020-07-28] MEDS ORDERED: IBUPROFEN 600 MG TAB PO STA (14:04)
--- NOTE | 2020-07-28 14:12 | ED ---
General Adult HPI - General Source: patient, RN notes reviewed, old records reviewed Mode of arrival: wheelchair Limitations: no limitations <Amando Katz - Last Filed: 07/28/20 15:13> <Farhan South - Last Filed: 07/28/20 16:35> - General Chief complaint: Fever Stated complaint: YODIT Time Seen by Provider: 07/28/20 13:30 - History of Present Illness Initial comments: This is a 70-year-old male who presents emergency Department complaining of difficulty breathing for 3 months. Patient states she's also had chest pain for 3 months. Patient states the breathing is gotten worse lately. Patient is un aware of any fever that we have a temperature in the emergency department. Patient states she's had a cough for quite a while. Patient states he was recently tested COVID it was negative. Patient states she has a history of COPD and a cardiac stent. Patient denies any loss of taste and smell patient denies any abdominal pain patient denies nausea vomiting diarrhea. (Amando Katz) - Related Data Home Medications Medication Instructions Recorded Confirmed Enalapril [Vasotec] 20 mg PO BID 05/04/15 06/29/20 Allopurinol [Zyloprim] 300 mg PO DAILY 12/21/19 06/29/20 Insulin Glargine,Hum.rec.anlog 150 units SQ HS 12/21/19 06/29/20 [[place] Solostar] metFORMIN HCL [metFORMIN HCL ER] 500 mg PO BID 12/21/19 06/29/20 Atorvastatin Calcium [Lipitor] 40 mg PO HS 03/02/20 06/29/20 Clopidogrel Bisulfate [Plavix] 75 mg PO DAILY 03/02/20 06/29/20 Insulin Aspart (Niacinamide) 30 units SQ AC-TID 03/02/20 06/29/20 [Fiasp 100 Unit/ml Vial] Metoprolol Succinate (ER) [Toprol 25 mg PO DAILY 03/02/20 06/29/20 XL] Tamsulosin HCl [Flomax] 0.4 mg PO DAILY 03/02/20 06/29/20 Dulaglutide [Trulicity] 1.5 mg SQ TH 06/19/20 06/29/20 Albuterol Inhaler [Ventolin Hfa 2 puff INHALATION RT-QID PRN 06/29/20 06/29/20 Inhaler] Aspirin EC [Ecotrin Low Dose] 81 mg PO DAILY 06/29/20 06/29/20 Cholecalciferol [Vitamin D3 (25 125 mcg PO DAILY 06/29/20 06/29/20 Mcg = 1000 Iu)] Comfort-Max 1 tab PO DAILY 06/29/20 06/29/20 Joint Relief Supplements 1 tab PO DAILY 06/29/20 06/29/20 oxyCODONE-APAP 5-325MG [Percocet 1 tab PO DAILY PRN 06/29/20 06/29/20 5-325 mg] Previous Rx's Medication Instructions Recorded Azithromycin [Zithromax] 500 mg PO DAILY #3 tab 07/01/20 Furosemide [Lasix] 20 mg PO DAILY #30 tab 07/01/20 Allergies Allergy/AdvReac Type Severity Reaction Status Date / Time ciprofloxacin Allergy Nausea & Verified 07/28/20 13:33 Vomiting levofloxacin [From Levaquin] Allergy Unknown Verified 07/28/20 13:33 Penicillins Allergy Rash/Hives Verified 07/28/20 13:33 Review of Systems ROS Other: All systems not noted in ROS Statement are negative. <Amando Katz - Last Filed: 07/28/20 15:13> ROS Other: All systems not noted in ROS Statement are negative. <Farhan South - Last Filed: 07/28/20 16:35> ROS Statement: Those systems with pertinent positive or pertinent negative responses have been documented in the HPI. Past Medical History Past Medical History: Coronary Artery Disease (CAD), Heart Failure, COPD, Diabetes Mellitus, Hypertension Additional Past Medical History / Comment(s): Lyme Disease History of Any Multi-Drug Resistant Organisms: None Reported Past Surgical History: Heart Catheterization With Stent, Orthopedic Surgery Additional Past Surgical History / Comment(s): right knee, lap abnd surgery, colonoscopy, kidney stones Past Anesthesia/Blood Transfusion Reactions: No Reported Reaction Date of Last Stent Placement:: 02/24/2020 Past Psychological History: No Psychological Hx Reported Smoking Status: Never smoker Past Alcohol Use History: Occasional Past Drug Use History: None Reported <Amando Katz - Last Filed: 07/28/20 15:13> General Exam Limitations: no limitations <Amando Katz - Last Filed: 07/28/20 15:13> - General Exam Comments Initial Comments: GENERAL: Patient is well-developed and well-nourished. Patient is nontoxic and well- hydrated and is in moderate distress. ENT: Neck is soft and supple. No significant lymphadenopathy is noted. Oropharynx is clear. Moist mucous membranes. Neck has full range of motion without eliciting any pain. EYES: The sclera were anicteric and conjunctiva were pink and moist. Extraocular movements were intact and pupils were equal round and reactive to light. Eyelids were unremarkable. PULMONARY: Significant only diminished breath sounds CARDIOVASCULAR: There is a regular rate and rhythm without any murmurs gallops or rubs. ABDOMEN: Soft and nontender with normal bowel sounds. No palpable organomegaly was noted. There is no palpable pulsatile mass. SKIN: Skin is clear with no lesions or rashes and otherwise unremarkable. NEUROLOGIC: Patient is alert and oriented x3. Cranial nerves II through XII are grossly intact. Motor and sensory are also intact. Normal speech, volume and content. Symmetrical smile. MUSCULOSKELETAL: Normal extremities with adequate strength and full range of motion. No lower extremity swelling or edema. No calf tenderness. LYMPHATICS: No significant lymphadenopathy is noted PSYCHIATRIC: Normal psychiatric evaluation. (Amando Katz) Course Vital Signs 07/28/20 13:30 Temperature 100.8 F H Pulse Rate 77 Respiratory 26 H Rate Blood Pressure 174/64 O2 Sat by Pulse 76 L Oximetry Medical Decision Making - Lab Data Result diagrams: 07/28/20 14:15 07/28/20 14:15 <Amando Katz - Last Filed: 07/28/20 15:13> - Lab Data Result diagrams: 07/28/20 14:15 07/28/20 14:15 <Farhan South - Last Filed: 07/28/20 16:35> - Medical Decision Making EKG shows normal sinus rhythm at 72 bpm IL interval 252 QRS is 144 QT interval is 448 QTC is 490. Patient's right bundle branch block. [facility] will be taking over the care of this patient at 3 PM (Amando Katz) Patient tested positive for coronavirus. He is saturating well on BiPAP with improved work of breathing. He has been admitted to internal medicine Dr. Paris has seen the patient in the emergency department. He has significant lab abnormalities including hyponatremia, and minimal troponin elevation this will be trended. Pulmonology placed on consult. (Farhan South) - Lab Data Lab Results 07/28/20 07/28/20 07/28/20 Range/Units 14:15 14:15 14:15 WBC 9.6 (3.8-10.6) k/uL RBC 4.41 (4.30-5.90) m/uL Hgb 13.2 (13.0-17.5) gm/dL Hct 39.2 (39.0-53.0) % MCV 88.8 (80.0-100.0) fL MCH 29.8 (25.0-35.0) pg MCHC 33.6 (31.0-37.0) g/dL RDW 14.0 (11.5-15.5) % Plt Count 181 (150-450) k/uL MPV 7.9 Neutrophils % 87 % Lymphocytes % 7 % Monocytes % 4 % Eosinophils % 0 % Basophils % 0 % Neutrophils # 8.3 H (1.3-7.7) k/uL Lymphocytes # 0.7 L (1.0-4.8) k/uL Monocytes # 0.4 (0-1.0) k/uL Eosinophils # 0.0 (0-0.7) k/uL Basophils # 0.0 (0-0.2) k/uL PT 10.0 (9.0-12.0) sec INR 0.9 (<1.2) APTT 26.0 (22.0-30.0) sec D-Dimer 1.37 H (<0.60) mg/L FEU Sodium 129 L (137-145) mmol/L Potassium 5.8 H (3.5-5.1) mmol/L Chloride 94 L (98-107) mmol/L Carbon Dioxide 21 L (22-30) mmol/L Anion Gap 14 mmol/L BUN 35 H (9-20) mg/dL Creatinine 1.22 (0.66-1.25) mg/dL Est GFR (CKD-EPI)AfAm 70 (>60 ml/min/1.73 sqM) Est GFR (CKD-EPI)NonAf 61 (>60 ml/min/1.73 sqM) Glucose 449 H (74-99) mg/dL Plasma Lactic Acid Harvinder (0.7-2.0) mmol/L Calcium 8.6 (8.4-10.2) mg/dL Magnesium 1.8 (1.6-2.3) mg/dL Total Bilirubin 0.8 (0.2-1.3) mg/dL AST 155 H (17-59) U/L ALT 67 H (4-49) U/L Alkaline Phosphatase 116 (38-126) U/L Troponin I (0.000-0.034) ng/mL NT-Pro-B Natriuret Pep pg/mL Total Protein 6.4 (6.3-8.2) g/dL Albumin 3.5 (3.5-5.0) g/dL Coronavirus (PCR) (Not Detectd) 07/28/20 07/28/20 07/28/20 Range/Units 14:15 14:15 14:15 WBC (3.8-10.6) k/uL RBC (4.30-5.90) m/uL Hgb (13.0-17.5) gm/dL Hct (39.0-53.0) % MCV (80.0-100.0) fL MCH (25.0-35.0) pg MCHC (31.0-37.0) g/dL RDW (11.5-15.5) % Plt Count (150-450) k/uL MPV Neutrophils % % Lymphocytes % % Monocytes % % Eosinophils % % Basophils % % Neutrophils # (1.3-7.7) k/uL Lymphocytes # (1.0-4.8) k/uL Monocytes # (0-1.0) k/uL Eosinophils # (0-0.7) k/uL Basophils # (0-0.2) k/uL PT (9.0-12.0) sec INR (<1.2) APTT (22.0-30.0) sec D-Dimer (<0.60) mg/L FEU Sodium (137-145) mmol/L Potassium (3.5-5.1) mmol/L Chloride (98-107) mmol/L Carbon Dioxide (22-30) mmol/L Anion Gap mmol/L BUN (9-20) mg/dL Creatinine (0.66-1.25) mg/dL Est GFR (CKD-EPI)AfAm (>60 ml/min/1.73 sqM) Est GFR (CKD-EPI)NonAf (>60 ml/min/1.73 sqM) Glucose (74-99) mg/dL Plasma Lactic Acid Harvinder 2.6 H* (0.7-2.0) mmol/L Calcium (8.4-10.2) mg/dL Magnesium (1.6-2.3) mg/dL Total Bilirubin (0.2-1.3) mg/dL AST (17-59) U/L ALT (4-49) U/L Alkaline Phosphatase (38-126) U/L Troponin I 0.050 H* (0.000-0.034) ng/mL NT-Pro-B Natriuret Pep 765 pg/mL Total Protein (6.3-8.2) g/dL Albumin (3.5-5.0) g/dL Coronavirus (PCR) (Not Detectd) 07/28/20 Range/Units 14:15 WBC (3.8-10.6) k/uL RBC (4.30-5.90) m/uL Hgb (13.0-17.5) gm/dL Hct (39.0-53.0) % MCV (80.0-100.0) fL MCH (25.0-35.0) pg MCHC (31.0-37.0) g/dL RDW (11.5-15.5) % Plt Count (150-450) k/uL MPV Neutrophils % % Lymphocytes % % Monocytes % % Eosinophils % % Basophils % % Neutrophils # (1.3-7.7) k/uL Lymphocytes # (1.0-4.8) k/uL Monocytes # (0-1.0) k/uL Eosinophils # (0-0.7) k/uL Basophils # (0-0.2) k/uL PT (9.0-12.0) sec INR (<1.2) APTT (22.0-30.0) sec D-Dimer (<0.60) mg/L FEU Sodium (137-145) mmol/L Potassium (3.5-5.1) mmol/L Chloride (98-107) mmol/L Carbon Dioxide (22-30) mmol/L Anion Gap mmol/L BUN (9-20) mg/dL Creatinine (0.66-1.25) mg/dL Est GFR (CKD-EPI)AfAm (>60 ml/min/1.73 sqM) Est GFR (CKD-EPI)NonAf (>60 ml/min/1.73 sqM) Glucose (74-99) mg/dL Plasma Lactic Acid Harvinder (0.7-2.0) mmol/L Calcium (8.4-10.2) mg/dL Magnesium (1.6-2.3) mg/dL Total Bilirubin (0.2-1.3) mg/dL AST (17-59) U/L ALT (4-49) U/L Alkaline Phosphatase (38-126) U/L Troponin I (0.000-0.034) ng/mL NT-Pro-B Natriuret Pep pg/mL Total Protein (6.3-8.2) g/dL Albumin (3.5-5.0) g/dL Coronavirus (PCR) Detected A (Not Detectd) Critical Care Time Critical Care Time: Yes Total Critical Care Time: 35 <Farhan South - Last Filed: 07/28/20 16:35> Disposition <Amando Katz - Last Filed: 07/28/20 15:13> Is patient prescribed a controlled substance at d/c from ED?: No Decision to Admit Reason: Admit from EC Decision Date: 07/28/20 Decision Time: 16:35 <Farhan South - Last Filed: 07/28/20 16:35> Clinical Impression: Morbid obesity, COPD (chronic obstructive pulmonary disease), Pneumonia due to COVID-19 virus, Respiratory failure Disposition: ADMITTED IP TO THIS [facility] Condition: Serious Referrals: Newton Lloyd MD [Primary Care Provider] - 1-2 days
[2020-07-28] MEDS ORDERED: HEPARIN SODIUM,PORCINE 5,000 UNIT/ML 1 ML VIAL IV STA (14:15)
[2020-07-28] MEDS ORDERED: HEPARIN SOD,PORK IN 0.45% NACL 25,000 UNIT in 0.45% NACL 1 250ML.BAG IV SCH (14:30)
[2020-07-28 14:35] LABS: Basophils % (A) 0 %; Eosinophils % (A) 0 %; HCT 39.2 % (39.0-53.0); HGB 13.2 gm/dL (13.0-17.5); Lymphocytes # (A) 0.7 k/uL (1.0-4.8); Lymphocytes % (A) 7 %; MCH 29.8 pg (25.0-35.0); MCHC 33.6 g/dL (31.0-37.0); MCV 88.8 fL (80.0-100.0); Mean Platelet Volume 7.9; Monocytes # (A) 0.4 k/uL (0-1.0); Monocytes % (A) 4 %; Neutrophils # (A) 8.3 k/uL (1.3-7.7); Neutrophils % (A) 87 %; Platelet Count 181 k/uL (150-450); RBC 4.41 m/uL (4.30-5.90); WBC 9.6 k/uL (3.8-10.6)
[2020-07-28 14:48] LABS: Albumin 3.5 g/dL (3.5-5.0); Calcium 8.6 mg/dL (8.4-10.2); INR 0.9 (<1.2); Magnesium 1.8 mg/dL (1.6-2.3); Potassium 5.8 mmol/L (3.5-5.1); Total Bilirubin 0.8 mg/dL (0.2-1.3); Total Protein 6.4 g/dL (6.3-8.2)
[2020-07-28] MEDS ORDERED: INSULIN ASPART (NovoLOG) 100 UNIT/ML VIAL SQ ONE (14:56)
[2020-07-28 15:02] LABS: D-Dimer 1.37 mg/L FEU (<0.60)
--- NOTE | 2020-07-28 15:57 | XR ---
EXAMINATION TYPE: XR chest 1V portable DATE OF EXAM: 07/28/2020 COMPARISON: 06/29/2020 HISTORY: Cough TECHNIQUE: Single frontal view of the chest is obtained. FINDINGS: There are patchy bilateral infiltrates which appear progressed from prior exam. No pneumot horax. Heart size normal. Technique limits assessment for pleural effusion. Heart is mildly enlarged. Underlying COPD suspected. IMPRESSION: Progressive diffuse bilateral patchy infiltrate.
[2020-07-28] MEDS ORDERED: DEXAMETHASONE SOD PHOSPHATE 10 MG/ML 1 ML VIAL IV STA (16:05)
[2020-07-28] MEDS ORDERED: ACETAMINOPHEN TAB 325 MG TAB PO PRN (16:12)
[2020-07-28] MEDS ORDERED: NALOXONE 0.4 MG/ML 1 ML VIAL IV PRN (16:32)
[2020-07-28] MEDS: SODIUM CHLORIDE 0.9% 1,000 ML IV SCH (17:12)
[2020-07-28] MEDS ORDERED: ALBUTEROL HFA INHALER INHALATION PRN (17:15)
[2020-07-28] MEDS: ZINC SULFATE 220 MG CAP PO SCH (17:21)
--- NOTE | 2020-07-28 17:27 | P.HPIM ---
History of Present Illness 70-year-old male came in with compensative short as of breath patient was having fevers patient is found to have covid 19, patient says he has a these symptoms of shortness of breath for 3 months when asked about fever patient says he has fever for 2 months. Patient says he was admitted multiple times for these symptoms it appears patient was admitted was admitted last month for bronchitis. Patient is a hyponatremic with acute renal failure Baseline creatinine within normal limits patient has elevated potassium lactic acidosis mildly elevated troponin with a normal BNP. Patient is on diuretics as well as AMANDA inhibitor at home. Patient has diffuse bilateral infiltrate on the chest x- ray. Review of Systems REVIEW OF SYSTEMS: CONSTITUTIONAL: As mentioned above HEENT: No recent visual problems or hearing problems. Denied any sore throat. CARDIOVASCULAR: No chest pain, orthopnea, PND, no palpitations, no syncope. PULMONARY: As mentioned above GASTROINTESTINAL: No diarrhea, no nausea, no vomiting, no abdominal pain. NEUROLOGICAL: No headaches, no weakness, no numbness. HEMATOLOGICAL: Denies any bleeding or petechiae. GENITOURINARY: Denies any burning micturition, frequency, or urgency. MUSCULOSKELETAL/RHEUMATOLOGICAL: Denies any joint pain, swelling, or any muscle pain. ENDOCRINE: Denies any polyuria or polydipsia. The rest of the 14-point review of systems is negative. Past Medical History Past Medical History: Coronary Artery Disease (CAD), Heart Failure, COPD, Diabetes Mellitus, Hypertension Additional Past Medical History / Comment(s): Lyme Disease History of Any Multi-Drug Resistant Organisms: None Reported Past Surgical History: Heart Catheterization With Stent, Orthopedic Surgery Additional Past Surgical History / Comment(s): right knee, lap abnd surgery, colonoscopy, kidney stones Past Anesthesia/Blood Transfusion Reactions: No Reported Reaction Date of Last Stent Placement:: 02/24/2020 Past Psychological History: No Psychological Hx Reported Smoking Status: Never smoker Past Alcohol Use History: Occasional Past Drug Use History: None Reported Medications and Allergies Home Medications Medication Instructions Recorded Confirmed Type Enalapril [Vasotec] 20 mg PO BID 05/04/15 07/28/20 History Allopurinol [Zyloprim] 300 mg PO DAILY 12/21/19 07/28/20 History Insulin Glargine,Hum.rec.anlog 150 units SQ HS 12/21/19 07/28/20 History [Yordan Hankins] metFORMIN HCL [metFORMIN HCL ER] 500 mg PO BID 12/21/19 07/28/20 History Atorvastatin Calcium [Lipitor] 40 mg PO HS 03/02/20 07/28/20 History Clopidogrel Bisulfate [Plavix] 75 mg PO DAILY 03/02/20 07/28/20 History Insulin Aspart (Niacinamide) 30 units SQ AC-TID 03/02/20 07/28/20 History [Fiasp 100 Unit/ml Vial] Metoprolol Succinate (ER) [Toprol 25 mg PO DAILY 03/02/20 07/28/20 History XL] Tamsulosin HCl [Flomax] 0.4 mg PO DAILY 03/02/20 07/28/20 History Dulaglutide [Trulicity] 1.5 mg SQ TH 06/19/20 07/28/20 History Albuterol Inhaler [Ventolin Hfa 2 puff INHALATION RT-QID PRN 06/29/20 07/28/20 History Inhaler] Aspirin EC [Ecotrin Low Dose] 81 mg PO DAILY 06/29/20 07/28/20 History Cholecalciferol [Vitamin D3 (25 125 mcg PO DAILY 06/29/20 07/28/20 History Mcg = 1000 Iu)] Comfort-Max 1 tab PO DAILY 06/29/20 07/28/20 History Joint Relief Supplements 1 tab PO DAILY 06/29/20 07/28/20 History oxyCODONE-APAP 5-325MG [Percocet 1 tab PO DAILY PRN 06/29/20 07/28/20 History 5-325 mg] Azithromycin [Zithromax] See Taper PO DAILY 07/28/20 07/28/20 History Furosemide [Lasix] 40 mg PO DAILY 07/28/20 07/28/20 History Meloxicam 15 mg PO DAILY 07/28/20 07/28/20 History rOPINIRole HCL [Requip] 1 mg PO HS 07/28/20 07/28/20 History Allergies Allergy/AdvReac Type Severity Reaction Status Date / Time ciprofloxacin Allergy Nausea & Verified 07/28/20 16:46 Vomiting levofloxacin [From Levaquin] Allergy Unknown Verified 07/28/20 16:46 Penicillins Allergy Rash/Hives Verified 07/28/20 16:46 Physical Exam Vitals: Vital Signs Temp Pulse Resp BP Pulse Ox 07/28/20 13:30 100.8 F H 77 26 H 174/64 76 L Intake and Output 07/28/20 07/28/20 07/28/20 06:59 14:59 22:59 Other: Weight 163.293 kg PHYSICAL EXAMINATION: GENERAL: The patient is alert and oriented x3, not in any acute distress. Obese HEENT: Pupils are round and equally reacting to light. EOMI. No scleral icterus. No conjunctival pallor. Normocephalic, atraumatic. No pharyngeal erythema. No thyromegaly. CARDIOVASCULAR: S1 and S2 present. No murmurs, rubs, or gallops. PULMONARY: Bibasilar crackles mild expiratory wheezing ABDOMEN: Soft, nontender, nondistended, normoactive bowel sounds. No palpable organomegaly. MUSCULOSKELETAL: No joint swelling or deformity. EXTREMITIES: No cyanosis, clubbing, or pedal edema. NEUROLOGICAL: Gross neurological examination did not reveal any focal deficits. SKIN: No rashes. Results CBC & Chem 7: 07/28/20 14:15 07/28/20 14:15 Labs: Abnormal Lab Results - Last 24 Hours (Table) 07/28/20 07/28/20 07/28/20 Range/Units 14:15 14:15 14:15 Neutrophils # 8.3 H (1.3-7.7) k/uL Lymphocytes # 0.7 L (1.0-4.8) k/uL D-Dimer 1.37 H (<0.60) mg/L FEU Sodium 129 L (137-145) mmol/L Potassium 5.8 H (3.5-5.1) mmol/L Chloride 94 L (98-107) mmol/L Carbon Dioxide 21 L (22-30) mmol/L BUN 35 H (9-20) mg/dL Glucose 449 H (74-99) mg/dL Plasma Lactic Acid Harvinder (0.7-2.0) mmol/L AST 155 H (17-59) U/L ALT 67 H (4-49) U/L Troponin I (0.000-0.034) ng/mL Coronavirus (PCR) (Not Detectd) 07/28/20 07/28/20 07/28/20 Range/Units 14:15 14:15 14:15 Neutrophils # (1.3-7.7) k/uL Lymphocytes # (1.0-4.8) k/uL D-Dimer (<0.60) mg/L FEU Sodium (137-145) mmol/L Potassium (3.5-5.1) mmol/L Chloride (98-107) mmol/L Carbon Dioxide (22-30) mmol/L BUN (9-20) mg/dL Glucose (74-99) mg/dL Plasma Lactic Acid Harvinder 2.6 H* (0.7-2.0) mmol/L AST (17-59) U/L ALT (4-49) U/L Troponin I 0.050 H* (0.000-0.034) ng/mL Coronavirus (PCR) Detected A (Not Detectd) Assessment and Plan Plan: Acute hypoxic respiratory failure: Secondary to covid 19, patient is presently on BiPAP which will be continued. Patient was started on Decadron Covid vitamins. Exact onset of symptoms is not clear, pulmonary was consulted. -Hypovolemic hyponatremia: Patient was started on IV fluids -Acute renal failure secondary to sepsis, prerenal azotemia IV fluids as mentioned above -Lactic is doses expected to improve with IV fluids and secondary to sepsis next and have an sepsis secondary to assessment #1 -Elevated liver enzymes secondary to systemic inflammatory response from coronavirus -Mildly elevated troponin secondary to hypoxemia will repeat troponins -Obesity with restrictive lung disease -Coronary artery disease patient had stents in the past patient last stent was placed in February 2020 patient is presently a dual antiplatelet therapy which will be continued -COPD without any acute exacerbation -Type 2 diabetes mellitus: Patient is on very high-dose of insulin patient blood sugars are expected to go up. will be resumed on home regimen along with sliding scale will titrated depending on his blood sugars -Hypertension DVT prophylaxis: Lovenox, patient only has mild renal failure.
--- NOTE | 2020-07-28 18:29 | P.CNPUL ---
History of Present Illness Consult date: 07/28/20 Requesting physician: Sandee Paris Reason for consult: dyspnea, hypoxemia, abnormal CXR/CT Chief complaint: Shortness of breath, cough, fatigue History of present illness: This is a very pleasant 70-year-old morbidly obese gentleman with a known history of diabetes mellitus, coronary artery disease with previous stent placement, gout, hypertension, hyperlipidemia, BPH. He does have a history of obstructive sleep apnea and utilizes CPAP at home nightly. He is a lifelong nonsmoker. He has seen Dr. Melendez in the past and was told his lung function is "good". Yesterday he had been seen by his PCP regarding increasing shortness of breath, cough, fatigue and was treated with azithromycin. CoVID 19 test was negative according to the patient. His symptoms progressed and he presented here to the emergency room as afternoon. He was found to have a room air pulse oximetry reading of 76%. Respiratory rate 26. Hypertensive. Temperature 100.8. Chest x-ray reveals progressive diffuse bilateral patchy infiltrates. He is seen today in the emergency room currently on BiPAP 18/8 and 70% FiO2 to maintain O2 saturations in the low 90s. White count 9.6. Hemoglobin 13.2. Lymphocytes 0.7. D-dimer 1.37. Sodium 129. Potassium 5.8. Bicarb 21. Creatinine 1.22. AST 155. ALT 67. Lactic acid 1.6. Troponin 0.05, 0.058 proBNP 765. Martin virus positive by PCR. He's been initiated on albuterol, vitamin supplements, dexamethasone, Lovenox. Review of Systems REVIEW OF SYSTEMS: CONSTITUTIONAL: Denies any recent significant weight loss or weight gain. EYES: Denies change in vision. EARS, NOSE, MOUTH, THROAT: Denies headaches, denies sore throat. CARDIOVASCULAR: Denies chest pain, palpitations or syncopal episodes. RESPIRATORY: Positive for shortness of breath, cough, congestion no hemoptysis. GASTROINTESTINAL: Poor appetite recently. GENITOURINARY: Denies hematuria, denies infections. MUSKULOSKELETAL: Denies pain, denies swelling. INTEGUMENTARY: Denies rash, denies eczema. NEUROLOGICAL: Denies recent memory loss, no recent seizure activity. PSYCHIATRIC: Denies anxiety, denies depression. HEMATOLOGIC/LYMPHATIC: Denies anemia, denies enlarged lymph nodes. Past Medical History Past Medical History: Coronary Artery Disease (CAD), Heart Failure, COPD, Diabetes Mellitus, Hypertension Additional Past Medical History / Comment(s): Lyme Disease History of Any Multi-Drug Resistant Organisms: None Reported Past Surgical History: Heart Catheterization With Stent, Orthopedic Surgery Additional Past Surgical History / Comment(s): right knee, lap abnd surgery, colonoscopy, kidney stones Past Anesthesia/Blood Transfusion Reactions: No Reported Reaction Date of Last Stent Placement:: 02/24/2020 Past Psychological History: No Psychological Hx Reported Smoking Status: Never smoker Past Alcohol Use History: Occasional Past Drug Use History: None Reported Medications and Allergies Home Medications Medication Instructions Recorded Confirmed Type Enalapril [Vasotec] 20 mg PO BID 05/04/15 07/28/20 History Allopurinol [Zyloprim] 300 mg PO DAILY 12/21/19 07/28/20 History Insulin Glargine,Hum.rec.anlog 150 units SQ HS 12/21/19 07/28/20 History [Yordan Solfabiana] metFORMIN HCL [metFORMIN HCL ER] 500 mg PO BID 12/21/19 07/28/20 History Atorvastatin Calcium [Lipitor] 40 mg PO HS 03/02/20 07/28/20 History Clopidogrel Bisulfate [Plavix] 75 mg PO DAILY 03/02/20 07/28/20 History Insulin Aspart (Niacinamide) 30 units SQ AC-TID 03/02/20 07/28/20 History [Fiasp 100 Unit/ml Vial] Metoprolol Succinate (ER) [Toprol 25 mg PO DAILY 03/02/20 07/28/20 History XL] Tamsulosin HCl [Flomax] 0.4 mg PO DAILY 03/02/20 07/28/20 History Dulaglutide [Trulicity] 1.5 mg SQ TH 06/19/20 07/28/20 History Albuterol Inhaler [Ventolin Hfa 2 puff INHALATION RT-QID PRN 06/29/20 07/28/20 History Inhaler] Aspirin EC [Ecotrin Low Dose] 81 mg PO DAILY 06/29/20 07/28/20 History Cholecalciferol [Vitamin D3 (25 125 mcg PO DAILY 06/29/20 07/28/20 History Mcg = 1000 Iu)] Comfort-Max 1 tab PO DAILY 06/29/20 07/28/20 History Joint Relief Supplements 1 tab PO DAILY 06/29/20 07/28/20 History oxyCODONE-APAP 5-325MG [Percocet 1 tab PO DAILY PRN 06/29/20 07/28/20 History 5-325 mg] Azithromycin [Zithromax] See Taper PO DAILY 07/28/20 07/28/20 History Furosemide [Lasix] 40 mg PO DAILY 07/28/20 07/28/20 History Meloxicam 15 mg PO DAILY 07/28/20 07/28/20 History rOPINIRole HCL [Requip] 1 mg PO HS 07/28/20 07/28/20 History Allergies Allergy/AdvReac Type Severity Reaction Status Date / Time ciprofloxacin Allergy Nausea & Verified 07/28/20 16:46 Vomiting levofloxacin [From Levaquin] Allergy Unknown Verified 07/28/20 16:46 Penicillins Allergy Rash/Hives Verified 07/28/20 16:46 Physical Exam Vitals: Vital Signs Temp Pulse Resp BP Pulse Ox 07/28/20 13:30 100.8 F H 77 26 H 174/64 76 L Intake and Output 07/28/20 07/28/20 07/28/20 06:59 14:59 22:59 Other: Weight 163.293 kg GENERAL EXAM: Alert, pleasant, morbidly obese 70-year-old gentleman, on BiPAP 18/8 and 70% FiO2, in mild respiratory distress. HEAD: Normocephalic. EYES: Normal reaction of pupils, equal size. NOSE: Clear with pink turbinates. THROAT: Crowding of posterior pharynx. No erythema or exudates. NECK: Short. No masses, no JVD. CHEST: No chest wall deformity. LUNGS: Equal air entry with crackles in the bilateral posterior bases. CVS: S1 and S2 normal with no audible murmur, regular rhythm. ABDOMEN: No hepatosplenomegaly, normal bowel sounds, no guarding or rigidity. SPINE: No scoliosis or deformity SKIN: No rashes CENTRAL NERVOUS SYSTEM: No focal deficits, tone is normal in all 4 extremities. EXTREMITIES: There is no peripheral edema. No clubbing, no cyanosis. Peripheral pulses are intact. Results - Laboratory Findings CBC and BMP: 07/28/20 14:15 07/28/20 14:15 PT/INR, D-dimer PT 10.0 sec (9.0-12.0) 07/28/20 14:15 INR 0.9 (<1.2) 07/28/20 14:15 D-Dimer 1.37 mg/L FEU (<0.60) H 07/28/20 14:15 Abnormal lab findings: Abnormal Labs 07/28/20 07/28/20 07/28/20 14:15 14:15 14:15 Neutrophils # 8.3 H Lymphocytes # 0.7 L D-Dimer 1.37 H Sodium 129 L Potassium 5.8 H Chloride 94 L Carbon Dioxide 21 L BUN 35 H Glucose 449 H Plasma Lactic Acid Harvinder AST 155 H ALT 67 H Troponin I Coronavirus (PCR) 07/28/20 07/28/20 07/28/20 14:15 14:15 14:15 Neutrophils # Lymphocytes # D-Dimer Sodium Potassium Chloride Carbon Dioxide BUN Glucose Plasma Lactic Acid Harvinder 2.6 H* AST ALT Troponin I 0.050 H* Coronavirus (PCR) Detected A 07/28/20 17:03 Neutrophils # Lymphocytes # D-Dimer Sodium Potassium Chloride Carbon Dioxide BUN Glucose Plasma Lactic Acid Harvinder AST ALT Troponin I 0.058 H* Coronavirus (PCR) - Diagnostic Findings Chest x-ray: image reviewed Assessment and Plan Assessment: 1 Acute hypoxemic respiratory failure secondary to CoVID 19 pneumonia/pneumonitis. Currently on BiPAP 18/8 and 70% FiO2. 2 Lymphocytopenia secondary to above 3 Mild transaminitis secondary to above 4 Troponin leak, suspect oxygen supply and demand mismatch 5 Morbid obesity with a BMI of 48.8 kg/m 6 Hyponatremia 7 Hyperkalemia 8 History of coronary artery disease with previous stent placement 9 Hypertension 10 Hyperlipidemia 11 Diabetes mellitus 12 Obstructive sleep apnea, utilizing CPAP in the outpatient setting 13 Lifelong nonsmoker 14 BPH Plan: The patient was seen and evaluated by Dr. Perez Chest x-ray, labs reviewed Currently on BiPAP 18/8 and 70% FiO2 Does not qualify for Remdesivir We will get tocilizumab, convalescent plasma Continue Lovenox, dexamethasone, vitamin supplements Titrate the FiO2 as tolerated Prognosis is guarded We'll continue to follow and make further recommendations based on his clinical status. I, the cosigning physician, performed a history & physical examination of the patient. Lungs sounds crackles in the bilateral posterior bases. Maintaining good O2 saturations in the 90s on BiPAP 18/8 and 70% FiO2. I discussed the assessment and plan of care with my nurse practitioner, Aubree Woody. I attest to the above consultation as dictated by her. Time with Patient: Greater than 30
[2020-07-28 19:28] LABS: Glucose,Whole Blood 488 mg/dL (75-99)
[2020-07-28] MEDS ORDERED: TOCILIZUMAB 800 MG in SODIUM CHLORIDE 0.9% 60 ML IV ONE (19:30)
[2020-07-28] MEDS: INSULIN ASPART (NovoLOG) 100 UNIT/ML VIAL SQ SCH (19:36)
[2020-07-28 20:45] LABS: Glucose,Whole Blood 502 mg/dL (75-99)
[2020-07-28 20:48] LABS: Glucose,Whole Blood 441 mg/dL (75-99)
[2020-07-28] MEDS ORDERED: INSULIN DETEMIR (LEVEMIR) 100 UNIT/ML SYR SQ SCH (21:00)
[2020-07-28] MEDS: FAMOTIDINE 20 MG TAB PO SCH (23:01)
[2020-07-28] MEDS: ASCORBIC ACID 500 MG TAB PO SCH (23:01)
[2020-07-28] MEDS: ATORVASTATIN 40 MG TAB PO SCH (23:01)
[2020-07-28 23:02] LABS: Glucose,Whole Blood 548 mg/dL (75-99)
[2020-07-29] MEDS: SODIUM CHLORIDE 0.9% 1,000 ML IV SCH ×3 (05:03→21:34)
[2020-07-29 05:48] LABS: Glucose,Whole Blood 477 mg/dL (75-99)
[2020-07-29] MEDS ORDERED: INSULIN ASPART (NovoLOG) 100 UNIT/ML VIAL SQ ONE (06:19)
[2020-07-29 06:35] LABS: Albumin 3.1 g/dL (3.5-5.0); Calcium 8.3 mg/dL (8.4-10.2); Potassium 5.3 mmol/L (3.5-5.1); Total Bilirubin 0.5 mg/dL (0.2-1.3); Total Protein 6.1 g/dL (6.3-8.2)
[2020-07-29] MEDS: INSULIN ASPART (NovoLOG) 100 UNIT/ML VIAL SQ SCH ×6 (06:52→21:35)
[2020-07-29] MEDS: ALBUTEROL HFA INHALER INHALATION PRN ×4 (07:29→19:52)
[2020-07-29] MEDS ORDERED: INSULIN ASPART (NovoLOG) 100 UNIT/ML VIAL SQ SCH (07:30)
[2020-07-29 07:55] LABS: Glucose,Whole Blood 450 mg/dL (75-99)
[2020-07-29] MEDS ORDERED: INSULIN DETEMIR (LEVEMIR) 100 UNIT/ML SYR SQ SCH (08:24)
[2020-07-29] MEDS: dexAMETHasone 2 MG TAB PO SCH (09:29)
[2020-07-29] MEDS: ZINC SULFATE 220 MG CAP PO SCH (09:29)
[2020-07-29] MEDS: ENOXAPARIN 40 MG/0.4 ML SYRINGE SQ SCH (09:29)
[2020-07-29] MEDS: ASCORBIC ACID 500 MG TAB PO SCH ×2 (09:29→21:34)
[2020-07-29] MEDS: ASPIRIN 81 MG PO SCH (09:30)
[2020-07-29] MEDS: allopurinoL 300 MG TAB PO SCH (09:30)
[2020-07-29] MEDS: TAMSULOSIN 0.4 MG CAP.ER.24H PO SCH (09:30)
[2020-07-29] MEDS: CLOPIDOGREL 75 MG TAB PO SCH (09:30)
[2020-07-29] MEDS: FAMOTIDINE 20 MG TAB PO SCH ×2 (09:30→21:34)
[2020-07-29] MEDS: METOPROLOL SUCCINATE (ER) 25 MG TAB.ER.24H PO SCH (09:30)
--- NOTE | 2020-07-29 10:26 | P.PN ---
Subjective Progress Note Date: 07/29/20 Principal diagnosis: Acute CoVID 19 pneumonia/pneumonitis This is a very pleasant 70-year-old morbidly obese gentleman with a known history of diabetes mellitus, coronary artery disease with previous stent placement, gout, hypertension, hyperlipidemia, BPH. He does have a history of obstructive sleep apnea and utilizes CPAP at home nightly. He is a lifelong nonsmoker. He has seen Dr. Melendez in the past and was told his lung function is "good". Yesterday he had been seen by his PCP regarding increasing shortness of breath, cough, fatigue and was treated with azithromycin. CoVID 19 test was negative according to the patient. His symptoms progressed and he presented h ere to the emergency room as afternoon. He was found to have a room air pulse oximetry reading of 76%. Respiratory rate 26. Hypertensive. Temperature 100.8. Chest x-ray reveals progressive diffuse bilateral patchy infiltrates. He is seen today in the emergency room currently on BiPAP 18/8 and 70% FiO2 to maintain O2 saturations in the low 90s. White count 9.6. Hemoglobin 13.2. Lymphocytes 0.7. D-dimer 1.37. Sodium 129. Potassium 5.8. Bicarb 21. Creatinine 1.22. AST 155. ALT 67. Lactic acid 1.6. Troponin 0.05, 0.058 proBNP 765. Martin virus positive by PCR. He's been initiated on albuterol, vitamin supplements, dexamethasone, Lovenox. The patient is seen today 07/29/2020 in follow-up in the emergency department. He remains on BiPAP 18/8 and 70% FiO2. 0.9 normal saline at 100 ML's per hour. He is awake and alert in no acute distress. Breathing a bit easier today com pared to yesterday. Maintaining O2 saturations in the 90s. Afebrile. Less tachypneic. Actually feels his pressure is too high on the BiPAP. He does have a home device to set at 13/8. Ipap is decreased to 13 now. He did receive Tocilizumab yesterday. Convalescent plasma is pending. Sodium 133. Potassium 5.3. Creatinine 1.65. Glucose 508. AST 94. ALT 59. He is on Levemir 150 units daily at bedtime along with a 20 mg in the morning and sliding scale. He remains on Lovenox, Decadron, vitamin supplements. Objective - Vital Signs Vital signs: Vital Signs Temp 98.8 F 07/29/20 04:00 Pulse 55 L 07/29/20 04:00 Resp 34 H 07/29/20 04:00 BP 147/77 07/29/20 04:00 Pulse Ox 94 L 07/29/20 04:00 Intake & Output 07/28/20 07/29/20 07/29/20 18:59 06:59 18:59 Intake Total 1100 Output Total 600 Balance 500 Weight 163.293 kg Intake: Intake, IV Titration 1100 Amount Sodium Chloride 0.9% 1, 1100 000 ml @ 100 mls/hr IV . Q10H CHERI Rx#:[id number] Output: Urine 600 Other: Voiding Method Urinal # Voids 1 - Exam GENERAL EXAM: Alert, pleasant, morbidly obese 70-year-old gentleman, on BiPAP 18/8 and 70% FiO2, in mild respiratory distress. HEAD: Normocephalic. EYES: Normal reaction of pupils, equal size. NOSE: Clear with pink turbinates. THROAT: Crowding of posterior pharynx. No erythema or exudates. NECK: Short. No masses, no JVD. CHEST: No chest wall deformity. LUNGS: Equal air entry with crackles in the bilateral posterior bases. CVS: S1 and S2 normal with no audible murmur, regular rhythm. ABDOMEN: No hepatosplenomegaly, normal bowel sounds, no guarding or rigidity. SPINE: No scoliosis or deformity SKIN: No rashes CENTRAL NERVOUS SYSTEM: No focal deficits, tone is normal in all 4 extremities. EXTREMITIES: There is no peripheral edema. No clubbing, no cyanosis. Peripher al pulses are intact. - Labs CBC & Chem 7: 07/28/20 14:15 07/29/20 06:00 Labs: Abnormal Lab Results - Last 24 Hours (Table) 07/28/20 07/28/20 07/28/20 Range/Units 14:15 14:15 14:15 Neutrophils # 8.3 H (1.3-7.7) k/uL Lymphocytes # 0.7 L (1.0-4.8) k/uL D-Dimer 1.37 H (<0.60) mg/L FEU Sodium 129 L (137-145) mmol/L Potassium 5.8 H (3.5-5.1) mmol/L Chloride 94 L (98-107) mmol/L Carbon Dioxide 21 L (22-30) mmol/L BUN 35 H (9-20) mg/dL Creatinine (0.66-1.25) mg/dL Glucose 449 H (74-99) mg/dL POC Glucose (mg/dL) (75-99) mg/dL Plasma Lactic Acid Harvinder (0.7-2.0) mmol/L Calcium (8.4-10.2) mg/dL AST 155 H (17-59) U/L ALT 67 H (4-49) U/L Troponin I (0.000-0.034) ng/mL Total Protein (6.3-8.2) g/dL Albumin (3.5-5.0) g/dL Coronavirus (PCR) (Not Detectd) 07/28/20 07/28/20 07/28/20 Range/Units 14:15 14:15 14:15 Neutrophils # (1.3-7.7) k/uL Lymphocytes # (1.0-4.8) k/uL D-Dimer (<0.60) mg/L FEU Sodium (137-145) mmol/L Potassium (3.5-5.1) mmol/L Chloride (98-107) mmol/L Carbon Dioxide (22-30) mmol/L BUN (9-20) mg/dL Creatinine (0.66-1.25) mg/dL Glucose (74-99) mg/dL POC Glucose (mg/dL) (75-99) mg/dL Plasma Lactic Acid Harvinder 2.6 H* (0.7-2.0) mmol/L Calcium (8.4-10.2) mg/dL AST (17-59) U/L ALT (4-49) U/L Troponin I 0.050 H* (0.000-0.034) ng/mL Total Protein (6.3-8.2) g/dL Albumin (3.5-5.0) g/dL Coronavirus (PCR) Detected A (Not Detectd) 07/28/20 07/28/20 07/28/20 Range/Units 17:03 19:25 20:06 Neutrophils # (1.3-7.7) k/uL Lymphocytes # (1.0-4.8) k/uL D-Dimer (<0.60) mg/L FEU Sodium (137-145) mmol/L Potassium (3.5-5.1) mmol/L Chloride (98-107) mmol/L Carbon Dioxide (22-30) mmol/L BUN (9-20) mg/dL Creatinine (0.66-1.25) mg/dL Glucose (74-99) mg/dL POC Glucose (mg/dL) 488 H (75-99) mg/dL Plasma Lactic Acid Harvinder (0.7-2.0) mmol/L Calcium (8.4-10.2) mg/dL AST (17-59) U/L ALT (4-49) U/L Troponin I 0.058 H* 0.045 H* (0.000-0.034) ng/mL Total Protein (6.3-8.2) g/dL Albumin (3.5-5.0) g/dL Coronavirus (PCR) (Not Detectd) 07/28/20 07/28/20 07/28/20 Range/Units 20:44 20:46 22:59 Neutrophils # (1.3-7.7) k/uL Lymphocytes # (1.0-4.8) k/uL D-Dimer (<0.60) mg/L FEU Sodium (137-145) mmol/L Potassium (3.5-5.1) mmol/L Chloride (98-107) mmol/L Carbon Dioxide (22-30) mmol/L BUN (9-20) mg/dL Creatinine (0.66-1.25) mg/dL Glucose (74-99) mg/dL POC Glucose (mg/dL) 502 H 441 H 548 H (75-99) mg/dL Plasma Lactic Acid Harvinder (0.7-2.0) mmol/L Calcium (8.4-10.2) mg/dL AST (17-59) U/L ALT (4-49) U/L Troponin I (0.000-0.034) ng/mL Total Protein (6.3-8.2) g/dL Albumin (3.5-5.0) g/dL Coronavirus (PCR) (Not Detectd) 04/10/21 04/10/21 04/10/21 Range/Units 05:45 06:00 07:52 Neutrophils # (1.3-7.7) k/uL Lymphocytes # (1.0-4.8) k/uL D-Dimer (<0.60) mg/L FEU Sodium 133 L (137-145) mmol/L Potassium 5.3 H (3.5-5.1) mmol/L Chloride (98-107) mmol/L Carbon Dioxide (22-30) mmol/L BUN 47 H (9-20) mg/dL Creatinine 1.65 H (0.66-1.25) mg/dL Glucose 508 H* (74-99) mg/dL POC Glucose (mg/dL) 477 H 450 H (75-99) mg/dL Plasma Lactic Acid Harvinder (0.7-2.0) mmol/L Calcium 8.3 L (8.4-10.2) mg/dL AST 94 H (17-59) U/L ALT 59 H (4-49) U/L Troponin I (0.000-0.034) ng/mL Total Protein 6.1 L (6.3-8.2) g/dL Albumin 3.1 L (3.5-5.0) g/dL Coronavirus (PCR) (Not Detectd) Assessment and Plan Assessment: 1 Acute hypoxemic respiratory failure secondary to CoVID 19 pneumonia/pneumonitis. Currently on BiPAP, decreased to 13/8 and 70%. Received tocilizumab. Convalescent plasma pending 2 Lymphocytopenia secondary to above 3 Mild transaminitis secondary to above 4 Troponin leak, suspect oxygen supply and demand mismatch 5 Morbid obesity with a BMI of 48.8 kg/m 6 Hyponatremia 7 Hyperkalemia 8 History of coronary artery disease with previous stent placement 9 Hypertension 10 Hyperlipidemia 11 Diabetes mellitus 12 Obstructive sleep apnea, utilizing CPAP in the outpatient setting 13 Lifelong nonsmoker 14 BPH Plan: The patient was seen and evaluated by Dr. Perez Currently on BiPAP 13/8 and 70% FiO2 Does not qualify for Remdesivir Received tocilizumab, pending convalescent plasma Continue Lovenox, dexamethasone, vitamin supplements Titrate the FiO2 as tolerated Prognosis is guarded We'll continue to follow and make further recommendations based on his clinical status. I, the cosigning physician, performed a history & physical examination of the patient. Lungs sounds crackles in the bilateral posterior bases. Maintaining good O2 saturations in the 90s on BiPAP 13/8 and 70% FiO2. I discussed the assessment and plan of care with my nurse practitioner, Aubree Woody. I attest to the above note as dictated by her.
--- NOTE | 2020-07-29 12:34 | P.PN ---
Subjective 63-year-old female came in with comments of shortness of breath and generalized body aches fever chills diarrhea nausea vomiting has been going on for 3 days found to have Covid 19, patient had a CT angios the chest which is showing multifocal patchy bilateral infiltrates no pulmonary embolism and mediastinal adenopathy. Patient does have a hyponatremia as well. Patient has a highly elevated d-dimer because of which patient is on anti-coagulation dose of Lovenox. 07/29/2020 Patient's blood sugars are really high patient remains on BiPAP with 70% FiO2. Patient is receiving additional dose of long-acting insulin and increasing the nighttime long-acting insulin. Patient received Tocilizumab, will receive Convalescent plasma, labs from today morning is still pending Constitutional: Denied any fatigue denied any fever. Cardio vascular: denied any chest pain, palpitations Gastrointestinal denied any nausea vomiting Pulmonary: he is comfortable on BiPAP Neurologic denied any new focal deficits All inpatient medications were reviewed and appropriate changes in these medications as dictated in the interval history and assessment and plan. Objective - Vital Signs Vital signs: Vital Signs Temp 98.7 F 07/29/20 10:00 Pulse 57 L 07/29/20 11:00 Resp 24 07/29/20 11:00 BP 147/74 07/29/20 11:00 Pulse Ox 94 L 07/29/20 11:00 Intake & Output 07/28/20 07/29/20 07/29/20 18:59 06:59 18:59 Intake Total 1100 Output Total 600 Balance 500 Weight 163.293 kg Intake: Intake, IV Titration 1100 Amount Sodium Chloride 0.9% 1, 1100 000 ml @ 100 mls/hr IV . Q10H [facility] Rx#:[id number] Output: Urine 600 Other: Voiding Method Urinal # Voids 1 - Exam PHYSICAL EXAMINATION: GENERAL: The patient is alert and oriented x3, not in any acute distress. Obese HEENT: Pupils are round and equally reacting to light. EOMI. No scleral icterus. No conjunctival pallor. Normocephalic, atraumatic. No pharyngeal erythema. No thyromegaly. CARDIOVASCULAR: S1 and S2 present. No murmurs, rubs, or gallops. PULMONARY: Bibasilar crackles mild expiratory wheezing ABDOMEN: Soft, nontender, nondistended, normoactive bowel sounds. No palpable organomegaly. MUSCULOSKELETAL: No joint swelling or deformity. EXTREMITIES: No cyanosis, clubbing, or pedal edema. NEUROLOGICAL: Gross neurological examination did not reveal any focal deficits. SKIN: No rashes. - Labs CBC & Chem 7: 07/28/20 14:15 07/29/20 06:00 Labs: Abnormal Lab Results - Last 24 Hours (Table) 07/28/20 07/28/20 07/28/20 Range/Units 14:15 14:15 14:15 Neutrophils # 8.3 H (1.3-7.7) k/uL Lymphocytes # 0.7 L (1.0-4.8) k/uL D-Dimer 1.37 H (<0.60) mg/L FEU Sodium 129 L (137-145) mmol/L Potassium 5.8 H (3.5-5.1) mmol/L Chloride 94 L (98-107) mmol/L Carbon Dioxide 21 L (22-30) mmol/L BUN 35 H (9-20) mg/dL Creatinine (0.66-1.25) mg/dL Glucose 449 H (74-99) mg/dL POC Glucose (mg/dL) (75-99) mg/dL Plasma Lactic Acid Harvinder (0.7-2.0) mmol/L Calcium (8.4-10.2) mg/dL AST 155 H (17-59) U/L ALT 67 H (4-49) U/L Troponin I (0.000-0.034) ng/mL Total Protein (6.3-8.2) g/dL Albumin (3.5-5.0) g/dL Coronavirus (PCR) (Not Detectd) 07/28/20 07/28/20 07/28/20 Range/Units 14:15 14:15 14:15 Neutrophils # (1.3-7.7) k/uL Lymphocytes # (1.0-4.8) k/uL D-Dimer (<0.60) mg/L FEU Sodium (137-145) mmol/L Potassium (3.5-5.1) mmol/L Chloride (98-107) mmol/L Carbon Dioxide (22-30) mmol/L BUN (9-20) mg/dL Creatinine (0.66-1.25) mg/dL Glucose (74-99) mg/dL POC Glucose (mg/dL) (75-99) mg/dL Plasma Lactic Acid Harvinder 2.6 H* (0.7-2.0) mmol/L Calcium (8.4-10.2) mg/dL AST (17-59) U/L ALT (4-49) U/L Troponin I 0.050 H* (0.000-0.034) ng/mL Total Protein (6.3-8.2) g/dL Albumin (3.5-5.0) g/dL Coronavirus (PCR) Detected A (Not Detectd) 07/28/20 07/28/20 07/28/20 Range/Units 17:03 19:25 20:06 Neutrophils # (1.3-7.7) k/uL Lymphocytes # (1.0-4.8) k/uL D-Dimer (<0.60) mg/L FEU Sodium (137-145) mmol/L Potassium (3.5-5.1) mmol/L Chloride (98-107) mmol/L Carbon Dioxide (22-30) mmol/L BUN (9-20) mg/dL Creatinine (0.66-1.25) mg/dL Glucose (74-99) mg/dL POC Glucose (mg/dL) 488 H (75-99) mg/dL Plasma Lactic Acid Harvinder (0.7-2.0) mmol/L Calcium (8.4-10.2) mg/dL AST (17-59) U/L ALT (4-49) U/L Troponin I 0.058 H* 0.045 H* (0.000-0.034) ng/mL Total Protein (6.3-8.2) g/dL Albumin (3.5-5.0) g/dL Coronavirus (PCR) (Not Detectd) 07/28/20 07/28/20 07/28/20 Range/Units 20:44 20:46 22:59 Neutrophils # (1.3-7.7) k/uL Lymphocytes # (1.0-4.8) k/uL D-Dimer (<0.60) mg/L FEU Sodium (137-145) mmol/L Potassium (3.5-5.1) mmol/L Chloride (98-107) mmol/L Carbon Dioxide (22-30) mmol/L BUN (9-20) mg/dL Creatinine (0.66-1.25) mg/dL Glucose (74-99) mg/dL POC Glucose (mg/dL) 502 H 441 H 548 H (75-99) mg/dL Plasma Lactic Acid Harvinder (0.7-2.0) mmol/L Calcium (8.4-10.2) mg/dL AST (17-59) U/L ALT (4-49) U/L Troponin I (0.000-0.034) ng/mL Total Protein (6.3-8.2) g/dL Albumin (3.5-5.0) g/dL Coronavirus (PCR) (Not Detectd) 07/29/20 07/29/20 07/29/20 Range/Units 05:45 06:00 07:52 Neutrophils # (1.3-7.7) k/uL Lymphocytes # (1.0-4.8) k/uL D-Dimer (<0.60) mg/L FEU Sodium 133 L (137-145) mmol/L Potassium 5.3 H (3.5-5.1) mmol/L Chloride (98-107) mmol/L Carbon Dioxide (22-30) mmol/L BUN 47 H (9-20) mg/dL Creatinine 1.65 H (0.66-1.25) mg/dL Glucose 508 H* (74-99) mg/dL POC Glucose (mg/dL) 477 H 450 H (75-99) mg/dL Plasma Lactic Acid Harvinder (0.7-2.0) mmol/L Calcium 8.3 L (8.4-10.2) mg/dL AST 94 H (17-59) U/L ALT 59 H (4-49) U/L Troponin I (0.000-0.034) ng/mL Total Protein 6.1 L (6.3-8.2) g/dL Albumin 3.1 L (3.5-5.0) g/dL Coronavirus (PCR) (Not Detectd) Assessment and Plan Plan: Acute hypoxic respiratory failure: Secondary to covid 19, patient is presently on BiPAP which will be continued. Patient was started on Decadron Covid vitamins. Exact onset of symptoms is not clear, pulmonary evaluated the patientl,Received tocilizumab. Will receive Convalescent plasma. -Hypovolemic hyponatremia: Patient was started on IV fluids -Acute renal failure secondary to sepsis, prerenal azotemia IV fluids as mentioned above -Lactic is doses expected to improve with IV fluids and secondary to sepsis next and have an sepsis secondary to assessment #1 -Elevated liver enzymes secondary to systemic inflammatory response from coronavirus -Mildly elevated troponin secondary to hypoxemia will repeat troponins -Obesity with restrictive lung disease -Coronary artery disease patient had stents in the past patient last stent was placed in February 2020 patient is presently a dual antiplatelet therapy which will be continued -COPD without any acute exacerbation -Type 2 diabetes mellitus: Patient is on very high-dose of insulin patient blood sugars are expected to go up. will be resumed on home regimen along with sliding scale will titrated depending on his blood sugars -Hypertension DVT prophylaxis: Lovenox, patient only has mild renal failure.
[2020-07-29 12:47] LABS: Glucose,Whole Blood 319 mg/dL (75-99)
[2020-07-29 21:20] LABS: Glucose,Whole Blood 380 mg/dL (75-99)
[2020-07-29] MEDS: ATORVASTATIN 40 MG TAB PO SCH (21:34)
[2020-07-29] MEDS: INSULIN DETEMIR (LEVEMIR) 100 UNIT/ML SYR SQ SCH (21:54)
[2020-07-30] MEDS ORDERED: ALPRAZolam 0.5 MG TAB PO STA (01:59)
[2020-07-30] MEDS ORDERED: HALOPERIDOL LACTATE 5 MG/ML 1 ML VIAL IVP STA (06:39)
[2020-07-30] MEDS ORDERED: INSULIN DETEMIR (LEVEMIR) 100 UNIT/ML SYR SQ SCH (07:00)
[2020-07-30 07:04] LABS: Glucose,Whole Blood 309 mg/dL (75-99)
[2020-07-30 07:08] LABS: ABG Base Excess -1.4 mmol/L; ABG HCO3 22 mmol/L (21-25); ABG Oxygen Saturation 91.8 % (94-97); ABG PCO2 30 mmHg (35-45); ABG PH 7.47 (7.35-7.45); ABG TCO2 23 mmol/L (19-24); Allen Test Performed? Yes
[2020-07-30 07:15] LABS: ABG PO2 58 mmHg (83-108)
[2020-07-30 09:12] LABS: Albumin 3.1 g/dL (3.5-5.0); Calcium 8.8 mg/dL (8.4-10.2); Potassium 4.5 mmol/L (3.5-5.1); Total Bilirubin 0.7 mg/dL (0.2-1.3); Total Protein 6.2 g/dL (6.3-8.2)
[2020-07-30] MEDS: INSULIN ASPART (NovoLOG) 100 UNIT/ML VIAL SQ SCH ×7 (10:11→20:25)
[2020-07-30] MEDS: INSULIN DETEMIR (LEVEMIR) 100 UNIT/ML SYR SQ SCH ×2 (10:11→20:25)
[2020-07-30] MEDS: dexAMETHasone 2 MG TAB PO SCH (10:14)
[2020-07-30] MEDS: ASPIRIN 81 MG PO SCH (10:14)
[2020-07-30] MEDS: ASCORBIC ACID 500 MG TAB PO SCH ×2 (10:14→21:37)
[2020-07-30] MEDS: CLOPIDOGREL 75 MG TAB PO SCH (10:14)
[2020-07-30] MEDS: FAMOTIDINE 20 MG TAB PO SCH ×2 (10:15→21:38)
[2020-07-30] MEDS: ZINC SULFATE 220 MG CAP PO SCH (10:15)
[2020-07-30] MEDS: METOPROLOL SUCCINATE (ER) 25 MG TAB.ER.24H PO SCH (10:15)
[2020-07-30] MEDS: TAMSULOSIN 0.4 MG CAP.ER.24H PO SCH (10:15)
[2020-07-30] MEDS: allopurinoL 300 MG TAB PO SCH (10:15)
[2020-07-30] MEDS: SODIUM CHLORIDE 0.9% 1,000 ML IV SCH ×3 (10:21→20:21)
[2020-07-30] MEDS: ENOXAPARIN 40 MG/0.4 ML SYRINGE SQ SCH (10:22)
[2020-07-30] MEDS: ALBUTEROL HFA INHALER INHALATION PRN ×2 (10:55→15:22)
[2020-07-30] MEDS ORDERED: LORazepam 2 MG/ML INJ IV PRN (12:04)
[2020-07-30 12:12] LABS: Glucose,Whole Blood 328 mg/dL (75-99)
--- NOTE | 2020-07-30 13:01 | P.PN ---
Subjective 63-year-old female came in with comments of shortness of breath and generalized body aches fever chills diarrhea nausea vomiting has been going on for 3 days found to have Covid 19, patient had a CT angios the chest which is showing multifocal patchy bilateral infiltrates no pulmonary embolism and mediastinal adenopathy. Patient does have a hyponatremia as well. Patient has a highly elevated d-dimer because of which patient is on anti-coagulation dose of Lovenox. 07/29/2020 Patient's blood sugars are really high patient remains on BiPAP with 70% FiO2. Patient is receiving additional dose of long-acting insulin and increasing the nighttime long-acting insulin. Patient received Tocilizumab, will receive Convalescent plasma, labs from today morning is still pending 07/30/2020 Patient is presently on 100% FiO2 on BiPAP keeps pulling the BiPAP out. Patient is oriented times close to 3 but still bit confused. In spite of confusion i nstilling giving him Xanax so that he doesn't pull the BiPAP mask. Constitutional: Denied any fatigue denied any fever. Cardio vascular: denied any chest pain, palpitations Gastrointestinal denied any nausea vomiting Pulmonary: He is anxious on BiPAP. Neurologic denied any new focal deficits All inpatient medications were reviewed and appropriate changes in these medications as dictated in the interval history and assessment and plan. Objective - Vital Signs Vital signs: Vital Signs Temp 95.8 F L 07/30/20 08:00 Pulse 61 07/30/20 08:00 Resp 35 H 07/30/20 08:00 BP 175/92 07/30/20 08:00 Pulse Ox 98 07/30/20 08:00 Intake & Output 07/29/20 07/30/20 07/30/20 18:59 06:59 18:59 Intake Total 100 0 Output Total 2900 Balance -2800 0 Weight 146 kg Intake: Intake, IV Titration 100 Amount Sodium Chloride 0.9% 1, 100 000 ml @ 100 mls/hr IV . Q10H [facility] Rx#:[id number] Oral 0 Output: Urine 2900 Uretheral (Melara) 1000 Other: Voiding Method Indwelling Catheter Indwelling Catheter - Exam PHYSICAL EXAMINATION: GENERAL: The patient is alert and oriented x3, not in any acute distress. Obese HEENT: Pupils are round and equally reacting to light. EOMI. No scleral icterus. No conjunctival pallor. Normocephalic, atraumatic. No pharyngeal erythema. No thyromegaly. CARDIOVASCULAR: S1 and S2 present. No murmurs, rubs, or gallops. PULMONARY: Bibasilar crackles mild expiratory wheezing ABDOMEN: Soft, nontender, nondistended, normoactive bowel sounds. No palpable organomegaly. MUSCULOSKELETAL: No joint swelling or deformity. EXTREMITIES: No cyanosis, clubbing, or pedal edema. NEUROLOGICAL: Gross neurological examination did not reveal any focal deficits. SKIN: No rashes. - Labs CBC & Chem 7: 07/28/20 14:15 07/30/20 07:33 Labs: Abnormal Lab Results - Last 24 Hours (Table) 07/29/20 07/30/20 07/30/20 Range/Units 21:18 07:01 07:05 ABG pH 7.47 H (7.35-7.45) ABG pCO2 30 L (35-45) mmHg ABG pO2 58 L* (83-108) mmHg ABG O2 Saturation 91.8 L (94-97) % Sodium (137-145) mmol/L Carbon Dioxide (22-30) mmol/L BUN (9-20) mg/dL Creatinine (0.66-1.25) mg/dL Glucose (74-99) mg/dL POC Glucose (mg/dL) 380 H 309 H (75-99) mg/dL AST (17-59) U/L ALT (4-49) U/L Total Protein (6.3-8.2) g/dL Albumin (3.5-5.0) g/dL 07/30/20 07/30/20 Range/Units 07:33 11:45 ABG pH (7.35-7.45) ABG pCO2 (35-45) mmHg ABG pO2 (83-108) mmHg ABG O2 Saturation (94-97) % Sodium 136 L (137-145) mmol/L Carbon Dioxide 19 L (22-30) mmol/L BUN 56 H (9-20) mg/dL Creatinine 1.32 H (0.66-1.25) mg/dL Glucose 323 H (74-99) mg/dL POC Glucose (mg/dL) 328 H (75-99) mg/dL AST 110 H (17-59) U/L ALT 65 H (4-49) U/L Total Protein 6.2 L (6.3-8.2) g/dL Albumin 3.1 L (3.5-5.0) g/dL Microbiology - Last 24 Hours (Table) 07/28/20 14:10 Blood Culture - Preliminary Blood No Growth after 24 hours Assessment and Plan Plan: Acute hypoxic respiratory failure: Secondary to covid 19, patient is presently on BiPAP which will be continued. Patient was started on Decadron Covid vi tamins. Exact onset of symptoms is not clear, pulmonary evaluated the patientl,Received tocilizumab. Will receive Convalescent plasma. -Hypovolemic hyponatremia: Improved with IV fluids -Acute renal failure secondary to sepsis, prerenal azotemia IV fluids as mentioned above -Lactic is doses expected to improve with IV fluids and secondary to sepsisand has sepsis secondary to assessment #2 -Elevated liver enzymes secondary to systemic inflammatory response from coronavirus -Mildly elevated troponin secondary to hypoxemia will repeat troponins -Obesity with restrictive lung disease -Coronary artery disease patient had stents in the past patient last stent was placed in February 2020 patient is presently a dual antiplatelet therapy which will be continued -COPD without any acute exacerbation -Type 2 diabetes mellitus: Patient is on very high-dose of insulin patient blood sugars are expected to go up. will be resumed on home regimen along with sliding scale will titrated depending on his blood sugars -Hypertension DVT prophylaxis: Lovenox, patient only has mild renal failure.
[2020-07-30] MEDS ORDERED: HALOPERIDOL LACTATE 5 MG/ML 1 ML VIAL IVP PRN (14:00)
--- NOTE | 2020-07-30 15:33 | P.PN ---
Subjective Progress Note Date: 07/30/20 Principal diagnosis: Acute CoVID 19 pneumonia/pneumonitis This is a very pleasant 70-year-old morbidly obese gentleman with a known history of diabetes mellitus, coronary artery disease with previous stent placement, gout, hypertension, hyperlipidemia, BPH. He does have a history of obstructive sleep apnea and utilizes CPAP at home nightly. He is a lifelong nonsmoker. He has seen Dr. Melendez in the past and was told his lung function is "good". Yesterday he had been seen by his PCP regarding increasing shortness of breath, cough, fatigue and was treated with azithromycin. CoVID 19 test was negative according to the patient. His symptoms progressed and he presented h ere to the emergency room as afternoon. He was found to have a room air pulse oximetry reading of 76%. Respiratory rate 26. Hypertensive. Temperature 100.8. Chest x-ray reveals progressive diffuse bilateral patchy infiltrates. He is seen today in the emergency room currently on BiPAP 18/8 and 70% FiO2 to maintain O2 saturations in the low 90s. White count 9.6. Hemoglobin 13.2. Lymphocytes 0.7. D-dimer 1.37. Sodium 129. Potassium 5.8. Bicarb 21. Creatinine 1.22. AST 155. ALT 67. Lactic acid 1.6. Troponin 0.05, 0.058 proBNP 765. Martin virus positive by PCR. He's been initiated on albuterol, vitamin supplements, dexamethasone, Lovenox. The patient is seen today 07/29/2020 in follow-up in the emergency department. He remains on BiPAP 18/8 and 70% FiO2. 0.9 normal saline at 100 ML's per hour. He is awake and alert in no acute distress. Breathing a bit easier today com pared to yesterday. Maintaining O2 saturations in the 90s. Afebrile. Less tachypneic. Actually feels his pressure is too high on the BiPAP. He does have a home device to set at 13/8. Ipap is decreased to 13 now. He did receive Tocilizumab yesterday. Convalescent plasma is pending. Sodium 133. Potassium 5.3. Creatinine 1.65. Glucose 508. AST 94. ALT 59. He is on Levemir 150 units daily at bedtime along with a 20 mg in the morning and sliding scale. He remains on Lovenox, Decadron, vitamin supplements. The patient is seen today 07/30/2020 in follow-up on the selective care unit. He is currently sitting up in bed. Awake and alert. Somewhat confused to time and place. His son is at the bedside. He is still requiring BiPAP at 18/8 and 100% FiO2. Restless at times. Was given Ativan without much improvement. Arterial blood gases on 70% FiO2 revealed a pO2 58, pCO2 30, pH 7.47. Sodium 136. Potassium 4.5. Creatinine 1.32. AST 110. ALT 65. Remains on Lovenox, dexamethasone, vitamin supplements. Objective - Vital Signs Vital signs: Vital Signs Temp 95.8 F L 07/30/20 08:00 Pulse 61 07/30/20 08:00 Resp 35 H 07/30/20 08:00 BP 175/92 07/30/20 08:00 Pulse Ox 98 07/30/20 08:00 Intake & Output 07/29/20 07/30/20 07/30/20 18:59 06:59 18:59 Intake Total 100 0 Output Total 2900 Balance -2800 0 Weight 146 kg Intake: Intake, IV Titration 100 Amount Sodium Chloride 0.9% 1, 100 000 ml @ 100 mls/hr IV . Q10H [facility] Rx#:[id number] Oral 0 Output: Urine 2900 Uretheral (Melara) 1000 Other: Voiding Method Indwelling Catheter Indwelling Catheter - Exam GENERAL EXAM: Alert, confused and restless today, morbidly obese 70-year-old gentleman, on BiPAP 18/8 and 100% FiO2, in mild respiratory distress. HEAD: Normocephalic. EYES: Normal reaction of pupils, equal size. NOSE: Clear with pink turbinates. THROAT: Crowding of posterior pharynx. No erythema or exudates. NECK: Short. No masses, no JVD. CHEST: No chest wall deformity. LUNGS: Equal air entry with crackles in the bilateral posterior bases. CVS: S1 and S2 normal with no audible murmur, regular rhythm. ABDOMEN: Obese, unable to appreciate any hepatosplenomegaly, normal bowel sounds, no guarding or rigidity. SPINE: No scoliosis or deformity SKIN: No rashes CENTRAL NERVOUS SYSTEM: No focal deficits, tone is normal in all 4 extremities. EXTREMITIES: There is no peripheral edema. No clubbing, no cyanosis. Peripheral pulses are intact. - Labs CBC & Chem 7: 07/28/20 14:15 07/30/20 07:33 Labs: Abnormal Lab Results - Last 24 Hours (Table) 07/29/20 07/30/20 07/30/20 Range/Units 21:18 07:01 07:05 ABG pH 7.47 H (7.35-7.45) ABG pCO2 30 L (35-45) mmHg ABG pO2 58 L* (83-108) mmHg ABG O2 Saturation 91.8 L (94-97) % Sodium (137-145) mmol/L Carbon Dioxide (22-30) mmol/L BUN (9-20) mg/dL Creatinine (0.66-1.25) mg/dL Glucose (74-99) mg/dL POC Glucose (mg/dL) 380 H 309 H (75-99) mg/dL AST (17-59) U/L ALT (4-49) U/L Total Protein (6.3-8.2) g/dL Albumin (3.5-5.0) g/dL 07/30/20 07/30/20 Range/Units 07:33 11:45 ABG pH (7.35-7.45) ABG pCO2 (35-45) mmHg ABG pO2 (83-108) mmHg ABG O2 Saturation (94-97) % Sodium 136 L (137-145) mmol/L Carbon Dioxide 19 L (22-30) mmol/L BUN 56 H (9-20) mg/dL Creatinine 1.32 H (0.66-1.25) mg/dL Glucose 323 H (74-99) mg/dL POC Glucose (mg/dL) 328 H (75-99) mg/dL AST 110 H (17-59) U/L ALT 65 H (4-49) U/L Total Protein 6.2 L (6.3-8.2) g/dL Albumin 3.1 L (3.5-5.0) g/dL Microbiology - Last 24 Hours (Table) 07/28/20 14:10 Blood Culture - Preliminary Blood No Growth after 24 hours Assessment and Plan Assessment: 1 Acute hypoxemic respiratory failure secondary to CoVID 19 pneumonia/pneumonitis. Currently on BiPAP, increased to 18/8 and 100%. Received tocilizumab. Convalescent plasma pending. 2 Lymphocytopenia secondary to above 3 Mild transaminitis secondary to above 4 Troponin leak, suspect oxygen supply and demand mismatch 5 Morbid obesity with a BMI of 48.8 kg/m 6 Hyponatremia 7 Hyperkalemia 8 History of coronary artery disease with previous stent placement 9 Hypertension 10 Hyperlipidemia 11 Diabetes mellitus 12 Obstructive sleep apnea, utilizing CPAP in the outpatient setting 13 Lifelong nonsmoker 14 BPH Plan: The patient was seen and evaluated by Dr. Perez Currently on BiPAP 18/8 and 100% FiO2 Haldol for restlessness and agitation Received tocilizumab, pending convalescent plasma Continue Lovenox, dexamethasone, vitamin supplements Titrate the FiO2 as tolerated Prognosis is guarded We'll continue to follow and make further recommendations based on his clinical status. I, the cosigning physician, performed a history & physical examination of the patient. Lungs sounds crackles in the bilateral posterior bases. Maintaining good O2 saturations in the 90s on BiPAP 18/8 and 100% FiO2. I discussed the assessment and plan of care with my nurse practitioner, Aubree Woody. I attest to the above note as dictated by her.
[2020-07-30 16:37] LABS: Basophils # (A) 0.1 k/uL (0-0.2); Basophils % (A) 1 %; Eosinophils % (A) 0 %; HCT 39.1 % (39.0-53.0); HGB 13.9 gm/dL (13.0-17.5); Lymphocytes # (A) 0.5 k/uL (1.0-4.8); Lymphocytes % (A) 4 %; MCH 30.6 pg (25.0-35.0); MCHC 35.5 g/dL (31.0-37.0); Monocytes # (A) 0.4 k/uL (0-1.0); Monocytes % (A) 3 %; Neutrophils # (A) 13.9 k/uL (1.3-7.7); Neutrophils % (A) 91 %; Platelet Count 257 k/uL (150-450); RBC 4.54 m/uL (4.30-5.90); WBC 15.4 k/uL (3.8-10.6)
[2020-07-30 16:45] LABS: Potassium 4.1 mmol/L (3.5-5.1)
[2020-07-30 16:50] LABS: Albumin 3.3 g/dL (3.5-5.0); Calcium 9.3 mg/dL (8.4-10.2); Total Bilirubin 0.5 mg/dL (0.2-1.3); Total Protein 6.4 g/dL (6.3-8.2)
[2020-07-30 17:40] LABS: Glucose,Whole Blood 128 mg/dL (75-99)
[2020-07-30] MEDS: HALOPERIDOL LACTATE 5 MG/ML 1 ML VIAL IM PRN ×2 (18:42→22:02)
[2020-07-30] MEDS ORDERED: LORazepam 2 MG/ML INJ IV STA (20:07)
[2020-07-30 20:15] LABS: Glucose,Whole Blood 113 mg/dL (75-99)
[2020-07-30 21:11] LABS: ABG Base Excess 0.5 mmol/L; ABG HCO3 25 mmol/L (21-25); ABG Oxygen Saturation 93.3 % (94-97); ABG PCO2 42 mmHg (35-45); ABG PO2 67 mmHg (83-108); ABG TCO2 27 mmol/L (19-24); Allen Test Performed? Yes
[2020-07-30] MEDS: ATORVASTATIN 40 MG TAB PO SCH (21:37)
[2020-07-30] MEDS: LORazepam 2 MG/ML INJ IV PRN (22:02)
[2020-07-31 00:16] LABS: ABG Base Excess -0.2 mmol/L; ABG HCO3 24 mmol/L (21-25); ABG PCO2 37 mmHg (35-45); ABG PH 7.42 (7.35-7.45); ABG PO2 76 mmHg (83-108); ABG TCO2 25 mmol/L (19-24); Allen Test Performed? Yes
[2020-07-31] MEDS: HALOPERIDOL LACTATE 5 MG/ML 1 ML VIAL IM PRN (01:58)
[2020-07-31] MEDS: LORazepam 2 MG/ML INJ IV PRN (01:59)
[2020-07-31] MEDS ORDERED: CISATRACURIUM 2 MG/ML 5 ML VIAL IV ONE (02:04)
[2020-07-31] MEDS ORDERED: propofoL 100 ML IV ONE (02:21)
[2020-07-31] MEDS ORDERED: PROPOFOL 10 MG/ML 20 ML VIAL IV ONE (03:00)
[2020-07-31] MEDS ORDERED: SUCCINYLCHOLINE CHLORIDE VIAL 200 MG/10 ML VIAL IV ONE (03:00)
[2020-07-31] MEDS ORDERED: ROCURONIUM 10 MG/ML (5 ML VIAL) IV ONE (03:00)
[2020-07-31] MEDS: CISATRACURIUM 200 MG in SODIUM CHLORIDE 0.9% 180 ML IV SCH ×2 (03:00→22:49)
--- NOTE | 2020-07-31 03:36 | XR ---
EXAM: XR Chest, 1 View CLINICAL HISTORY: ITS.REASON XR Reason: Tube placement TECHNIQUE: Frontal view of the chest. COMPARISON: 07/28/2020 IMPRESSION: ET tube terminates 4.7 cm with right upper NG tube enters into the mid stomach. Diffuse patchy lung opacities. Masslike round opacity measuring 7 cm in the left upper lobe. Attention on follow-up.
[2020-07-31 04:35] LABS: Basophils # (A) 0.1 k/uL (0-0.2); Basophils % (A) 0 %; Eosinophils % (A) 0 %; HCT 37.6 % (39.0-53.0); HGB 13.1 gm/dL (13.0-17.5); Lymphocytes # (A) 0.6 k/uL (1.0-4.8); Lymphocytes % (A) 4 %; MCH 30.3 pg (25.0-35.0); MCHC 34.9 g/dL (31.0-37.0); MCV 86.9 fL (80.0-100.0); Mean Platelet Volume 7.4; Monocytes # (A) 0.6 k/uL (0-1.0); Monocytes % (A) 4 %; Neutrophils % (A) 89 %; Platelet Count 244 k/uL (150-450); RBC 4.33 m/uL (4.30-5.90); RDW 14.2 % (11.5-15.5); WBC 15.6 k/uL (3.8-10.6)
[2020-07-31 04:41] LABS: ABG HCO3 25 mmol/L (21-25); ABG Oxygen Saturation 88.9 % (94-97); ABG PCO2 48 mmHg (35-45); ABG PH 7.33 (7.35-7.45); ABG TCO2 26 mmol/L (19-24); Allen Test Performed? Yes
[2020-07-31 04:43] LABS: ABG PO2 59 mmHg (83-108)
[2020-07-31 04:52] LABS: Albumin 3.2 g/dL (3.5-5.0); Potassium 4.4 mmol/L (3.5-5.1); Total Bilirubin 0.7 mg/dL (0.2-1.3); Total Protein 6.2 g/dL (6.3-8.2)
--- NOTE | 2020-07-31 05:47 | P.PN ---
Subjective Progress Note Date: 07/31/20 Acute CoVID 19 pneumonia/pneumonitis This is a very pleasant 70-year-old morbidly obese gentleman with a known history of diabetes mellitus, coronary artery disease with previous stent placement, gout, hypertension, hyperlipidemia, BPH. He does have a history of obstructive sleep apnea and utilizes CPAP at home nightly. He is a lifelong nonsmoker. He has seen Dr. Melendez in the past and was told his lung function is "good". Yesterday he had been seen by his PCP regarding increasing shortness of breath, cough, fatigue and was treated with azithromycin. CoVID 19 test was negative according to the patient. His symptoms progressed and he presented here to the emergency room as afternoon. He was found to have a room air pulse oximetry reading of 76%. Respiratory rate 26. Hypertensive. Temperature 100.8. Chest x-ray reveals progressive diffuse bilateral patchy infiltrates. He is seen today in the emergency room currently on BiPAP 18/8 and 70% FiO2 to maintain O2 saturations in the low 90s. White count 9.6. Hemoglobin 13.2. Lymphocytes 0.7. D-dimer 1.37. Sodium 129. Potassium 5.8. Bicarb 21. Creatinine 1.22. AST 155. ALT 67. Lactic acid 1.6. Troponin 0.05, 0.058 proBNP 765. Martin virus positive by PCR. He's been initiated on albuterol, vitamin supplements, dexamethasone, Lovenox. The patient is seen today 07/29/2020 in follow-up in the emergency department. He remains on BiPAP 18/8 and 70% FiO2. 0.9 normal saline at 100 ML's per hour. He is awake and alert in no acute distress. Breathing a bit easier today compared to yesterday. Maintaining O2 saturations in the 90s. Afebrile. Less tachypneic. Actually feels his pressure is too high on the BiPAP. He does have a home device to set at 13/8. Ipap is decreased to 13 now. He did receive Tocilizumab yesterday. Convalescent plasma is pending. Sodium 133. Potassium 5.3. Creatinine 1.65. Glucose 508. AST 94. ALT 59. He is on Levemir 150 units daily at bedtime along with a 20 mg in the morning and sliding scale. He remains on Lovenox, Decadron, vitamin supplements. The patient is seen today 07/30/2020 in follow-up on the selective care unit. He is currently sitting up in bed. Awake and alert. Somewhat confused to time and place. His son is at the bedside. He is still requiring BiPAP at 18/8 and 100% FiO2. Restless at times. Was given Ativan without much improvement. Arterial blood gases on 70% FiO2 revealed a pO2 58, pCO2 30, pH 7.47. Sodium 136. Potassium 4.5. Creatinine 1.32. AST 110. ALT 65. Remains on Lovenox, dexamethasone, vitamin supplements. On today's evaluation of 07/31/2020, the patient remains on BiPAP at a pressure of 18/8 cm of water with an FiO2 of 100%. There is a 70-year-old male patient obese with a BMI of 43.7 was being treated for a COVID 19 the related pneumonia. The patient has known history of coronary artery disease, hypertension and hyperlipidemia and diabetes mellitus. The patient has received a combination of treatment and the patient is currently on Lovenox, Decadron and multivitamins. Based on yesterday's inflammatory markers, the levels were still elevated and LDH was 2384 with a CRP of 78. Patient afebrile. The patient is hemodynamically stable. The chest x-ray showing extensive but the pulmonary infiltrate and smaller lung volumes. The patient was ordered convalescent plasma, hasn't been transfused.. The patient on Levemir insulin for blood sugar control along with a slight scale coverage. Note that the patient was on BiPAP throughout the night and the patient earlier this morning decompensated and the patient became progressively more hypoxic and based on that the patient was intubated and placed on a mechanical ventilator. Currently is on assist control mode at the rate of 24 with a tidal volume of 500 and FiO2 of 100% with a PEEP of 35. The patient has an I:E ratio of 1-1.2. Minute ventilation is around 12 L per minute. Chest x-ray showing diffuse bilateral pulmonary infiltrates/consolidation. NG tube is in place. ET tube is seen 3 cm above the humera. The pH is at 7.47 and a pCO2 30 and a pO2 of 58 post intubation. Based on that, the PEEP was increased up to 15 and the patient's FiO2 is currently running at 100% Pulse ox is 95. Blood work from today shows a creatinine of 1.3 with a BUN of 54. White cell count is at 15.4 with hemoglobin 13.9. Inflammatory markers today shows an LDH level of 2384, CRP of 78. The patient is sedated with propofol which is running at 40 mg/kg per minute and Nimbex is running at 1 mcg/kg per minute as the patient is paralyzed along with his s edation. The patient is also on Lovenox 40 mg subcu every 24 hours. The patient is on steroids in the patient is receiving Decadron 6 mg IV every 24 hours. He is on Levemir insulin 200 units daily at bedtime and 12 units subcu daily along with NovoLog 40 units 3 times a day and a scale for blood sugar control. Objective - Vital Signs Vital signs: Vital Signs Temp 97.9 F 07/31/20 04:00 Pulse 74 07/31/20 04:00 Resp 24 07/31/20 04:00 BP 136/87 07/31/20 04:00 Pulse Ox 92 L 07/31/20 04:00 Intake & Output 07/30/20 07/30/20 07/31/20 06:59 18:59 06:59 Intake Total 100 0 200 Output Total 2900 275 210 Balance -2800 -275 -10 Weight 146 kg Intake: IV 200 Sodium Chloride 0.9% 1, 200 000 ml @ 100 mls/hr IV . Q10H [facility] Rx#:[id number] Intake, IV Titration 100 Amount Sodium Chloride 0.9% 1, 100 000 ml @ 100 mls/hr IV . Q10H [facility] Rx#:[id number] Oral 0 0 Output: Urine 2900 275 210 Uretheral (Melara) 1000 Other: Voiding Method Indwelling Catheter Indwelling Catheter Indwelling Catheter ABP, PAP, CO, CI - Last Documented Arterial Blood Pressure 126/59 - Exam GENERAL EXAM: Alert, confused and restless today, morbidly obese 70-year-old gentleman, sedated, paralyzed, currently intubated on a mechanical ventilator. Orotracheal and orogastric tube are both in place. HEAD: Normocephalic. EYES: Normal reaction of pupils, equal size. NOSE: Clear with pink turbinates. THROAT: Crowding of posterior pharynx. No erythema or exudates. NECK: Short. No masses, no JVD. CHEST: No chest wall deformity. LUNGS: Equal air entry with crackles in the bilateral posterior bases. CVS: S1 and S2 normal with no audible murmur, regular rhythm. ABDOMEN: Obese, unable to appreciate any hepatosplenomegaly, normal bowel sounds, no guarding or rigidity. SPINE: No scoliosis or deformity SKIN: No rashes CENTRAL NERVOUS SYSTEM: Limited neurologic exam as the patient's currently intubated on a mechanical ventilator. EXTREMITIES: There is no peripheral edema. No clubbing, no cyanosis. Periphe ral pulses are intact. - Labs CBC & Chem 7: 07/31/20 03:45 07/31/20 03:45 Labs: Abnormal Lab Results - Last 24 Hours (Table) 07/30/20 07/30/20 07/30/20 Range/Units 07:01 07:05 07:33 WBC (3.8-10.6) k/uL Hct (39.0-53.0) % Neutrophils # (1.3-7.7) k/uL Lymphocytes # (1.0-4.8) k/uL D-Dimer (<0.60) mg/L FEU ABG pH 7.47 H (7.35-7.45) ABG pCO2 30 L (35-45) mmHg ABG pO2 58 L* (83-108) mmHg ABG Total CO2 (19-24) mmol/L ABG O2 Saturation 91.8 L (94-97) % Sodium 136 L (137-145) mmol/L Chloride (98-107) mmol/L Carbon Dioxide 19 L (22-30) mmol/L BUN 56 H (9-20) mg/dL Creatinine 1.32 H (0.66-1.25) mg/dL Glucose 323 H (74-99) mg/dL POC Glucose (mg/dL) 309 H (75-99) mg/dL Ferritin (22.0-322.0) ng/mL AST 110 H (17-59) U/L ALT 65 H (4-49) U/L Alkaline Phosphatase (38-126) U/L Lactate Dehydrogenase (313-618) U/L C-Reactive Protein (<10.0) mg/L Total Protein 6.2 L (6.3-8.2) g/dL Albumin 3.1 L (3.5-5.0) g/dL 04/11/21 04/11/21 04/11/21 Range/Units 11:45 16:21 16:21 WBC 15.4 H (3.8-10.6) k/uL Hct (39.0-53.0) % Neutrophils # 13.9 H (1.3-7.7) k/uL Lymphocytes # 0.5 L (1.0-4.8) k/uL D-Dimer (<0.60) mg/L FEU ABG pH (7.35-7.45) ABG pCO2 (35-45) mmHg ABG pO2 (83-108) mmHg ABG Total CO2 (19-24) mmol/L ABG O2 Saturation (94-97) % Sodium (137-145) mmol/L Chloride (98-107) mmol/L Carbon Dioxide (22-30) mmol/L BUN 54 H (9-20) mg/dL Creatinine 1.31 H (0.66-1.25) mg/dL Glucose 156 H (74-99) mg/dL POC Glucose (mg/dL) 328 H (75-99) mg/dL Ferritin 2303.0 H (22.0-322.0) ng/mL AST 102 H (17-59) U/L ALT 63 H (4-49) U/L Alkaline Phosphatase 139 H (38-126) U/L Lactate Dehydrogenase 2384 H (313-618) U/L C-Reactive Protein 78.0 H (<10.0) mg/L Total Protein (6.3-8.2) g/dL Albumin 3.3 L (3.5-5.0) g/dL 07/30/20 07/30/20 07/30/20 Range/Units 17:39 20:13 21:06 WBC (3.8-10.6) k/uL Hct (39.0-53.0) % Neutrophils # (1.3-7.7) k/uL Lymphocytes # (1.0-4.8) k/uL D-Dimer (<0.60) mg/L FEU ABG pH (7.35-7.45) ABG pCO2 (35-45) mmHg ABG pO2 67 L (83-108) mmHg ABG Total CO2 27 H (19-24) mmol/L ABG O2 Saturation 93.3 L (94-97) % Sodium (137-145) mmol/L Chloride (98-107) mmol/L Carbon Dioxide (22-30) mmol/L BUN (9-20) mg/dL Creatinine (0.66-1.25) mg/dL Glucose (74-99) mg/dL POC Glucose (mg/dL) 128 H 113 H (75-99) mg/dL Ferritin (22.0-322.0) ng/mL AST (17-59) U/L ALT (4-49) U/L Alkaline Phosphatase (38-126) U/L Lactate Dehydrogenase (313-618) U/L C-Reactive Protein (<10.0) mg/L Total Protein (6.3-8.2) g/dL Albumin (3.5-5.0) g/dL 07/31/20 07/31/20 07/31/20 Range/Units 00:12 03:45 03:45 WBC 15.6 H (3.8-10.6) k/uL Hct 37.6 L (39.0-53.0) % Neutrophils # 14.0 H (1.3-7.7) k/uL Lymphocytes # 0.6 L (1.0-4.8) k/uL D-Dimer >34.10 H (<0.60) mg/L FEU ABG pH (7.35-7.45) ABG pCO2 (35-45) mmHg ABG pO2 76 L (83-108) mmHg ABG Total CO2 25 H (19-24) mmol/L ABG O2 Saturation (94-97) % Sodium (137-145) mmol/L Chloride (98-107) mmol/L Carbon Dioxide (22-30) mmol/L BUN (9-20) mg/dL Creatinine (0.66-1.25) mg/dL Glucose (74-99) mg/dL POC Glucose (mg/dL) (75-99) mg/dL Ferritin (22.0-322.0) ng/mL AST (17-59) U/L ALT (4-49) U/L Alkaline Phosphatase (38-126) U/L Lactate Dehydrogenase (313-618) U/L C-Reactive Protein (<10.0) mg/L Total Protein (6.3-8.2) g/dL Albumin (3.5-5.0) g/dL 07/31/20 07/31/20 Range/Units 03:45 04:35 WBC (3.8-10.6) k/uL Hct (39.0-53.0) % Neutrophils # (1.3-7.7) k/uL Lymphocytes # (1.0-4.8) k/uL D-Dimer (<0.60) mg/L FEU ABG pH 7.33 L (7.35-7.45) ABG pCO2 48 H (35-45) mmHg ABG pO2 59 L* (83-108) mmHg ABG Total CO2 26 H (19-24) mmol/L ABG O2 Saturation 88.9 L (94-97) % Sodium (137-145) mmol/L Chloride 108 H (98-107) mmol/L Carbon Dioxide (22-30) mmol/L BUN 52 H (9-20) mg/dL Creatinine (0.66-1.25) mg/dL Glucose 172 H (74-99) mg/dL POC Glucose (mg/dL) (75-99) mg/dL Ferritin (22.0-322.0) ng/mL AST 95 H (17-59) U/L ALT 59 H (4-49) U/L Alkaline Phosphatase 146 H (38-126) U/L Lactate Dehydrogenase 2708 H (313-618) U/L C-Reactive Protein 64.0 H (<10.0) mg/L Total Protein 6.2 L (6.3-8.2) g/dL Albumin 3.2 L (3.5-5.0) g/dL Microbiology - Last 24 Hours (Table) 07/28/20 14:10 Blood Culture - Preliminary Blood No Growth after 48 hours Assessment and Plan Plan: 1 Acute hypoxemic respiratory failure secondary to CoVID 19 pneumonia/pneumonitis. Currently intubated on mechanical ventilator. The patient is also sedated and paralyzed. The patient is currently on Decadron 6 mg every 24 hours. The patient is also on Lovenox 40 mg subcu every 24 hours.. Received tocilizumab. Convalescent plasma pending. The patient failed BiPAP therapy and overnight the patient was intubated and placed on a mechanical ventilator. Blood gases needs to be followed. Chest x-ray showing diffuse breath and pulmonary infiltrates/consolidation related to Covid 19 related pneumonia. Inflammatory markers remain elevated. The thyroid is at 2 Lymphocytopenia secondary to above 3 Mild transaminitis secondary to above 4 Troponin leak, suspect oxygen supply and demand mismatch 5 Morbid obesity with a BMI of 48.8 kg/m 6 Hyponatremia, improved and normalized 7 Hyperkalemia, improved and normalized 8 History of coronary artery disease with previous stent placement 9 Hypertension 10 Hyperlipidemia 11 Diabetes mellitus 12 Obstructive sleep apnea, utilizing CPAP in the outpatient setting 13 Lifelong nonsmoker 14 BPH Plan: Currently intubated on a mechanical ventilator. Chest x-ray was noted Blood gas was noted The patient has diffuse but the pulmonary infiltrates. With incidental triple-lumen catheter in the center line and will monitor the blood gases Propofol for sedation and Nimbex for paralysis over the next 24 hours Continue Decadron Received tocilizumab, pending convalescent plasma ordered not transfused. Continue Lovenox, dexamethasone, vitamin supplements Adjust the dose of Lovenox to 0.5 mg/kg every 12 hours Will monitor the blood sugar and utilize insulin drip if needed. The patient is currently on high dose of Levemir Initiate enteral feeding for nutritional support The patient is currently on IV fluids running at 100 mL an hour of normal saline Titrate the FiO2 as tolerated Obtain echocardiogram Prognosis is guarded We'll continue to follow and make further recommendations based on his clinical status. Critical care evaluation, condition is critical, critical care time more than 30 minutes Time with Patient: Greater than 30
[2020-07-31] MEDS: INSULIN ASPART (NovoLOG) 100 UNIT/ML VIAL SQ SCH ×7 (07:21→23:30)
[2020-07-31 07:22] LABS: Glucose,Whole Blood 206 mg/dL (75-99)
[2020-07-31] MEDS: ASCORBIC ACID 500 MG TAB PO SCH ×2 (08:56→20:17)
[2020-07-31] MEDS: ASPIRIN 81 MG PO SCH (08:56)
[2020-07-31] MEDS: CLOPIDOGREL 75 MG TAB PO SCH (08:57)
[2020-07-31] MEDS: CHLORHEXIDINE GLUCONATE 15 ML CUP MUCOUS MEM SCH ×2 (08:57→20:17)
[2020-07-31] MEDS: FAMOTIDINE 20 MG TAB PO SCH ×2 (08:57→20:17)
[2020-07-31] MEDS: dexAMETHasone 2 MG TAB PO SCH (08:57)
[2020-07-31] MEDS: ENOXAPARIN 80 MG/0.8 ML SYRINGE SQ SCH ×2 (08:57→21:28)
[2020-07-31] MEDS: TAMSULOSIN 0.4 MG CAP.ER.24H PO SCH (08:58)
[2020-07-31] MEDS: ZINC SULFATE 220 MG CAP PO SCH (08:58)
[2020-07-31] MEDS: METOPROLOL SUCCINATE (ER) 25 MG TAB.ER.24H PO SCH (08:58)
[2020-07-31] MEDS: ARTIFICIAL TEARS OINTMENT 3.5 GM TUBE BOTH EYES SCH ×5 (09:07→22:50)
[2020-07-31 10:28] LABS: Ferritin 1610.4 ng/mL (22.0-322.0)
--- NOTE | 2020-07-31 11:19 | ECHOF ---
Referral Reason: MEASUREMENTS -------- HEIGHT: 177.8 cm WEIGHT: 145.6 kg BP: 116/78 IVSd: 1.6 cm (0.6 - 1.1) LVIDd: 2.7 cm (3.9 - 5.3) LVPWd: 1.6 cm (0.6 - 1.1) IVSs: 2.3 cm LVIDs: 1.7 cm LVPWs: 2.1 cm Ao Diam: 3.9 cm (2.0 - 3.7) AV Cusp: 2.6 cm (1.5 - 2.6) LA Diam: 3.9 cm (2.7 - 3.8) MV EXCURSION: 14.577 mm (> 18.000) MV EF SLOPE: 36 mm/s (70 - 150) EPSS: 0.8 cm MV E Farhat: 0.37 m/s MV DecT: 309 ms MV A Farhat: 0.49 m/s MV E/A Ratio: 0.76 RAP: 5.00 mmHg RVSP: 10.25 mmHg FINDINGS -------- This was a technically difficult study with suboptimal views. The left ventricular size is normal. There is moderate concentric left ventricular hypertrophy. O verall left ventricular systolic function is normal with, an EF between 55 - 60 %. The right ventricle is normal in size. The left atrial size is normal. The right atrial size is normal. Lumason used The aortic valve is trileaflet and appears structurally normal. The mitral valve is normal. There is trace mitral regurgitation. The tricuspid valve appears structurally normal. Mild tricuspid regurgitation present. Right vent ricular systolic pressure is normal at < 35 mmHg. There is no pulmonic regurgitation present. The aortic root size is normal. IVC Not well visulized. There is no pericardial effusion. CONCLUSIONS -------- 1. The left ventricular size is normal. 2. There is moderate concentric left ventricular hypertrophy. 3. Overall left ventricular systolic function is normal with, an EF between 55 - 60 %. 4. There is trace mitral regurgitation. 5. Mild tricuspid regurgitation present. 6. There is no pericardial effusion. HOSE STRIPPER: Rozina Plummer RDCS
[2020-07-31] MEDS: ALBUTEROL HFA INHALER INHALATION PRN ×2 (12:07→19:13)
[2020-07-31] MEDS: INSULIN DETEMIR (LEVEMIR) 100 UNIT/ML SYR SQ SCH ×2 (12:26→20:18)
[2020-07-31] MEDS: allopurinoL 300 MG TAB PO SCH (12:26)
[2020-07-31 12:51] LABS: Glucose,Whole Blood 285 mg/dL (75-99)
[2020-07-31] MEDS: SODIUM CHLORIDE 0.9% 1,000 ML IV SCH ×2 (15:31→22:51)
--- NOTE | 2020-07-31 15:47 | P.PN ---
Subjective Progress Note Date: 07/31/20 This is a 70-year-old gentleman admitted with acute coated 19 pneumonia and multiple other medical issues. Remains vent dependent with FiO2 100%/+15 of PEEP. ABGs noted. Chest x-ray reporting diffuse bilateral pulmonary infiltrates/consolidation ,including masslike ground opacity measuring 7 cm in the left upper lobe. Maintained on diprovan and Nimbex drips in addition to covert cocktail. Convalescent plasma ordered, pending. Echo reporting LV function EF 55-60%. D-dimer greater than 34, ferritin 1610, LDH 2780, CRP 64. Objective - Vital Signs Vital signs: Vital Signs Temp 97.9 F 07/31/20 04:00 Pulse 56 L 07/31/20 14:00 Resp 26 H 07/31/20 14:00 BP 116/78 07/31/20 08:30 Pulse Ox 98 07/31/20 14:00 Intake & Output 07/30/20 07/31/20 07/31/20 18:59 06:59 18:59 Intake Total 0 400 800 Output Total 275 250 48 Balance -275 150 752 Weight 146 kg Intake: IV 300 800 Sodium Chloride 0.9% 1, 300 800 000 ml @ 100 mls/hr IV . Q10H [facility] Rx#:[id number] Intake, IV Titration 100 Amount propofoL 1,000 mg In 100 Empty Bag 1 bag @ Titrate IV .Q0M [facility] Rx#: [id number] Oral 0 0 Output: Urine 275 250 48 Other: Voiding Method Indwelling Catheter Indwelling Catheter Indwelling Catheter ABP, PAP, CO, CI - Last Documented Arterial Blood Pressure 141/65 - Exam PHYSICAL EXAMINATION: GENERAL: Obese patient, intubated, sedated and on paralytics. HEENT: Pupils are round and equally reacting to light. EOMI. No scleral icterus. No conjunctival pallor. Normocephalic, atraumatic. No pharyngeal erythema. No thyromegaly. CARDIOVASCULAR: S1 and S2 present. No murmurs, rubs, or gallops. PULMONARY: Equal air entry with Bibasilar crackles ABDOMEN: Soft, nondistended, normoactive bowel sounds. No palpable organomegaly. EXTREMITIES: No cyanosis, clubbing, or pedal edema. NEUROLOGICAL: Unable to assess at this time, patient intubated, sedated and on paralytics. SKIN: No rashes. - Labs CBC & Chem 7: 07/31/20 03:45 07/31/20 03:45 Labs: Abnormal Lab Results - Last 24 Hours (Table) 07/30/20 07/30/20 07/30/20 Range/Units 16:21 16:21 17:39 WBC 15.4 H (3.8-10.6) k/uL Hct (39.0-53.0) % Neutrophils # 13.9 H (1.3-7.7) k/uL Lymphocytes # 0.5 L (1.0-4.8) k/uL D-Dimer (<0.60) mg/L FEU ABG pH (7.35-7.45) ABG pCO2 (35-45) mmHg ABG pO2 (83-108) mmHg ABG Total CO2 (19-24) mmol/L ABG O2 Saturation (94-97) % Chloride (98-107) mmol/L BUN 54 H (9-20) mg/dL Creatinine 1.31 H (0.66-1.25) mg/dL Glucose 156 H (74-99) mg/dL POC Glucose (mg/dL) 128 H (75-99) mg/dL Ferritin 2303.0 H (22.0-322.0) ng/mL AST 102 H (17-59) U/L ALT 63 H (4-49) U/L Alkaline Phosphatase 139 H (38-126) U/L Lactate Dehydrogenase 2384 H (313-618) U/L C-Reactive Protein 78.0 H (<10.0) mg/L Total Protein (6.3-8.2) g/dL Albumin 3.3 L (3.5-5.0) g/dL 07/30/20 07/30/20 07/31/20 Range/Units 20:13 21:06 00:12 WBC (3.8-10.6) k/uL Hct (39.0-53.0) % Neutrophils # (1.3-7.7) k/uL Lymphocytes # (1.0-4.8) k/uL D-Dimer (<0.60) mg/L FEU ABG pH (7.35-7.45) ABG pCO2 (35-45) mmHg ABG pO2 67 L 76 L (83-108) mmHg ABG Total CO2 27 H 25 H (19-24) mmol/L ABG O2 Saturation 93.3 L (94-97) % Chloride (98-107) mmol/L BUN (9-20) mg/dL Creatinine (0.66-1.25) mg/dL Glucose (74-99) mg/dL POC Glucose (mg/dL) 113 H (75-99) mg/dL Ferritin (22.0-322.0) ng/mL AST (17-59) U/L ALT (4-49) U/L Alkaline Phosphatase (38-126) U/L Lactate Dehydrogenase (313-618) U/L C-Reactive Protein (<10.0) mg/L Total Protein (6.3-8.2) g/dL Albumin (3.5-5.0) g/dL 07/31/20 07/31/20 07/31/20 Range/Units 03:45 03:45 03:45 WBC 15.6 H (3.8-10.6) k/uL Hct 37.6 L (39.0-53.0) % Neutrophils # 14.0 H (1.3-7.7) k/uL Lymphocytes # 0.6 L (1.0-4.8) k/uL D-Dimer >34.10 H (<0.60) mg/L FEU ABG pH (7.35-7.45) ABG pCO2 (35-45) mmHg ABG pO2 (83-108) mmHg ABG Total CO2 (19-24) mmol/L ABG O2 Saturation (94-97) % Chloride 108 H (98-107) mmol/L BUN 52 H (9-20) mg/dL Creatinine (0.66-1.25) mg/dL Glucose 172 H (74-99) mg/dL POC Glucose (mg/dL) (75-99) mg/dL Ferritin 1610.4 H (22.0-322.0) ng/mL AST 95 H (17-59) U/L ALT 59 H (4-49) U/L Alkaline Phosphatase 146 H (38-126) U/L Lactate Dehydrogenase 2708 H (313-618) U/L C-Reactive Protein 64.0 H (<10.0) mg/L Total Protein 6.2 L (6.3-8.2) g/dL Albumin 3.2 L (3.5-5.0) g/dL 07/31/20 07/31/20 07/31/20 Range/Units 04:35 07:20 12:31 WBC (3.8-10.6) k/uL Hct (39.0-53.0) % Neutrophils # (1.3-7.7) k/uL Lymphocytes # (1.0-4.8) k/uL D-Dimer (<0.60) mg/L FEU ABG pH 7.33 L (7.35-7.45) ABG pCO2 48 H (35-45) mmHg ABG pO2 59 L* (83-108) mmHg ABG Total CO2 26 H (19-24) mmol/L ABG O2 Saturation 88.9 L (94-97) % Chloride (98-107) mmol/L BUN (9-20) mg/dL Creatinine (0.66-1.25) mg/dL Glucose (74-99) mg/dL POC Glucose (mg/dL) 206 H 285 H (75-99) mg/dL Ferritin (22.0-322.0) ng/mL AST (17-59) U/L ALT (4-49) U/L Alkaline Phosphatase (38-126) U/L Lactate Dehydrogenase (313-618) U/L C-Reactive Protein (<10.0) mg/L Total Protein (6.3-8.2) g/dL Albumin (3.5-5.0) g/dL Microbiology - Last 24 Hours (Table) 07/31/20 03:15 Sputum Culture - Preliminary Sputum 07/28/20 14:10 Blood Culture - Preliminary Blood No Growth after 48 hours Assessment and Plan Assessment: Sepsis secondary to Acute Covid-19 pneumonia, present on admission Acute hypoxic respiratory failure, secondary to the above, ventilator dependent, requiring paralytics Hypovolemic hyponatremia, improved Hyperkalemia, normal lites Acute renal failure secondary to Covid, sepsis Elevated LFTs secondary to coronal virus Elevated troponins, 0.050, 0.058, 0.045, suspect hypoxia induced ,related to coronavirus Morbid obesity, BMI 43.7 Restrictive lung disease secondary to the above Obstructive sleep apnea, uses CPAP outpatient CAD, history of cardiac stents COPD without acute exacerbation Diabetes mellitus type 2, hyperglycemic Hypertension BPH Plan: Continue on current medication regime ,monitoring and symptomatic treatment. IV fluids, Covid cocktail, convalescent plasma pending. Continues on high doses of both regular and long-acting insulin- ICU management as per freight coordinator. Prognosis guarded given multiple complex medical issues. The impression and plan of care has been dictated as directed. : I performed a history and examination of this patient, discussed the same with the dictator. I agree with the dictator's note ,documented as a scribe. Any additional findings or plans will be noted.
[2020-07-31 18:05] LABS: Glucose,Whole Blood 347 mg/dL (75-99)
[2020-07-31] MEDS: ATORVASTATIN 40 MG TAB PO SCH (20:17)
[2020-07-31 23:24] LABS: Glucose,Whole Blood 407 mg/dL (75-99)
[2020-08-01 03:10] LABS: Glucose,Whole Blood 390 mg/dL (75-99)
[2020-08-01] MEDS: ARTIFICIAL TEARS OINTMENT 3.5 GM TUBE BOTH EYES SCH ×5 (03:28→20:12)
[2020-08-01] MEDS: INSULIN ASPART (NovoLOG) 100 UNIT/ML VIAL SQ SCH ×8 (03:32→20:12)
[2020-08-01 04:52] LABS: ABG Base Excess -4.8 mmol/L; ABG HCO3 23 mmol/L (21-25); ABG Oxygen Saturation 92.8 % (94-97); ABG PCO2 57 mmHg (35-45); ABG PH 7.21 (7.35-7.45); ABG PO2 70 mmHg (83-108); ABG TCO2 25 mmol/L (19-24)
[2020-08-01 05:27] LABS: Basophils # (A) 0.1 k/uL (0-0.2); Basophils % (A) 0 %; Eosinophils % (A) 0 %; HCT 38.5 % (39.0-53.0); HGB 13.1 gm/dL (13.0-17.5); Lymphocytes # (A) 0.4 k/uL (1.0-4.8); Lymphocytes % (A) 3 %; MCH 30.7 pg (25.0-35.0); MCHC 34.1 g/dL (31.0-37.0); MCV 90.2 fL (80.0-100.0); Mean Platelet Volume 7.4; Monocytes # (A) 0.4 k/uL (0-1.0); Monocytes % (A) 2 %; Neutrophils # (A) 13.6 k/uL (1.3-7.7); Neutrophils % (A) 93 %; Platelet Count 198 k/uL (150-450); RBC 4.26 m/uL (4.30-5.90); RDW 14.5 % (11.5-15.5); WBC 14.7 k/uL (3.8-10.6)
[2020-08-01 05:42] LABS: Albumin 3.2 g/dL (3.5-5.0); C Reactive Protein 40.3 mg/L (<10.0); Calcium 8.7 mg/dL (8.4-10.2); Total Bilirubin 0.6 mg/dL (0.2-1.3); Total Protein 6.1 g/dL (6.3-8.2)
--- NOTE | 2020-08-01 06:43 | P.PN ---
Subjective Progress Note Date: 08/01/20 Acute CoVID 19 pneumonia/pneumonitis This is a very pleasant 70-year-old morbidly obese gentleman with a known history of diabetes mellitus, coronary artery disease with previous stent placement, gout, hypertension, hyperlipidemia, BPH. He does have a history of obstructive sleep apnea and utilizes CPAP at home nightly. He is a lifelong nonsmoker. He has seen Dr. Melendez in the past and was told his lung function is "good". Yesterday he had been seen by his PCP regarding increasing shortness of breath, cough, fatigue and was treated with azithromycin. CoVID 19 test was negative according to the patient. His symptoms progressed and he presented here to the emergency room as afternoon. He was found to have a room air pulse oximetry reading of 76%. Respiratory rate 26. Hypertensive. Temperature 100.8. Chest x-ray reveals progressive diffuse bilateral patchy infiltrates. He is seen today in the emergency room currently on BiPAP 18/8 and 70% FiO2 to maintain O2 saturations in the low 90s. White count 9.6. Hemoglobin 13.2. Lymphocytes 0.7. D-dimer 1.37. Sodium 129. Potassium 5.8. Bicarb 21. Creatinine 1.22. AST 155. ALT 67. Lactic acid 1.6. Troponin 0.05, 0.058 proBNP 765. Martin virus positive by PCR. He's been initiated on albuterol, vitamin supplements, dexamethasone, Lovenox. The patient is seen today 07/29/2020 in follow-up in the emergency department. He remains on BiPAP 18/8 and 70% FiO2. 0.9 normal saline at 100 ML's per hour. He is awake and alert in no acute distress. Breathing a bit easier today compared to yesterday. Maintaining O2 saturations in the 90s. Afebrile. Less tachypneic. Actually feels his pressure is too high on the BiPAP. He does have a home device to set at 13/8. Ipap is decreased to 13 now. He did receive Tocilizumab yesterday. Convalescent plasma is pending. Sodium 133. Potassium 5.3. Creatinine 1.65. Glucose 508. AST 94. ALT 59. He is on Levemir 150 units daily at bedtime along with a 20 mg in the morning and sliding scale. He remains on Lovenox, Decadron, vitamin supplements. The patient is seen today 07/30/2020 in follow-up on the selective care unit. He is currently sitting up in bed. Awake and alert. Somewhat confused to time and place. His son is at the bedside. He is still requiring BiPAP at 18/8 and 100% FiO2. Restless at times. Was given Ativan without much improvement. Arterial blood gases on 70% FiO2 revealed a pO2 58, pCO2 30, pH 7.47. Sodium 136. Potassium 4.5. Creatinine 1.32. AST 110. ALT 65. Remains on Lovenox, dexamethasone, vitamin supplements. On today's evaluation of 07/31/2020, the patient remains on BiPAP at a pressure of 18/8 cm of water with an FiO2 of 100%. There is a 70-year-old male patient obese with a BMI of 43.7 was being treated for a COVID 19 the related pneumonia. The patient has known history of coronary artery disease, hypertension and hyperlipidemia and diabetes mellitus. The patient has received a combination of treatment and the patient is currently on Lovenox, Decadron and multivitamins. Based on yesterday's inflammatory markers, the levels were still elevated and LDH was 2384 with a CRP of 78. Patient afebrile. The patient is hemodynamically stable. The chest x-ray showing extensive but the pulmonary infiltrate and smaller lung volumes. The patient was ordered convalescent plasma, hasn't been transfused.. The patient on Levemir insulin for blood sugar control along with a slight scale coverage. Note that the patient was on BiPAP throughout the night and the patient earlier this morning decompensated and the patient became progressively more hypoxic and based on that the patient was intubated and placed on a mechanical ventilator. Currently is on assist control mode at the rate of 24 with a tidal volume of 500 and FiO2 of 100% with a PEEP of 35. The patient has an I:E ratio of 1-1.2. Minute ventilation is around 12 L per minute. Chest x-ray showing diffuse bilateral pulmonary infiltrates/consolidation. NG tube is in place. ET tube is seen 3 cm above the humera. The pH is at 7.47 and a pCO2 30 and a pO2 of 58 post intubation. Based on that, the PEEP was increased up to 15 and the patient's FiO2 is currently running at 100% Pulse ox is 95. Blood work from today shows a creatinine of 1.3 with a BUN of 54. White cell count is at 15.4 with hemoglobin 13.9. Inflammatory markers today shows an LDH level of 2384, CRP of 78. The patient is sedated with propofol which is running at 40 mg/kg per minute and Nimbex is running at 1 mcg/kg per minute as the patient is paralyzed along with his s edation. The patient is also on Lovenox 40 mg subcu every 24 hours. The patient is on steroids in the patient is receiving Decadron 6 mg IV every 24 hours. He is on Levemir insulin 200 units daily at bedtime and 12 units subcu daily along with NovoLog 40 units 3 times a day and a scale for blood sugar control. On 08/01/2020 the patient is being seen for a follow-up. The patient is currently intubated on a mechanical ventilator. The patient was intubated yesterday because of progressive hypoxemia and respiratory failure. He is a Covid 19 related pneumonia with secondary respiratory failure. At this point in time, the patient is sedated and the patient is currently on propofol running at 50 mics for respiratory per minute and he is also on Nimbex at 1 mcg/kg per minute. The patient is also on normal saline at the rate of 100 mL an hour. This morning, the patient is well sedated and he is quite sensitive the mechanical ventilator. I see him on assist control mode at the rate of 24 with a tidal volume of 100 and FiO2 of 70% with a PEEP of 15. The blood gases from today shows a pH of 7.1 with a pCO2 of 57 and pO2 of 69. The chest x-ray from today is showing patchy bilateral pulmonary infiltrates, more so in the lower lobes compared to the lower lobes although the infiltrates are rather diffuse. ET tube remains in good location. Comparing to yesterday's chest x-ray, there is essentially no major interval change. The patient's peak airway pressures 34 with a static pressures around 31. The patient definitely does worse in terms of his oxygenation whenever his late on his right side and he does better on the left. Echocardiogram is showing a preserved LV function with an ejection fraction of 55-60%. In terms of his blood work, the patient's inflammatory ryan ers show an LDH level of 2034 with a CRP of 40.3. He has developed also an acute kidney injury in the creatinine is up to 1.9 compared to yesterday and the patient has a white cell count of 14.7 with a hemoglobin of 13. Blood sugar from this today is at 390. The patient is receiving Levemir 200 units daily at bedtime scale along with a scale on top and despite all this is not well controlled. He is receiving enteral feeding for nutritional support and is currently on vital high protein at the rate of 20 mL an hour. His net fluid balance over the past 24 hours is +2.7 L. Patient remains on Lovenox 1 mg subcu every 12 hours. He d-dimer from yesterday was above 34. Objective - Vital Signs Vital signs: Vital Signs Temp 98.1 F 08/01/20 04:00 Pulse 71 08/01/20 05:00 Resp 28 H 08/01/20 05:00 BP 116/78 08/01/20 05:00 Pulse Ox 94 L 08/01/20 05:00 Intake & Output 07/31/20 07/31/20 08/01/20 06:59 18:59 06:59 Intake Total 400 0663.418 6699.594 Output Total 250 123 465 Balance 150 7791.956 6702.594 Weight 146 kg 154 kg Intake: IV 300 1200 1100 Sodium Chloride 0.9% 1, 300 1200 1100 000 ml @ 100 mls/hr IV . Q10H [facility] Rx#:[id number] Intake, IV Titration 100 194.024 373.594 Amount Cisatracurium 200 mg In 173.594 Sodium Chloride 0.9% 180 ml @ 1 MCG/KG/MIN 8.76 mls/hr IV .[id number] [facility] Rx #:[id number] propofoL 1,000 mg In 100 194.024 200 Empty Bag 1 bag @ Titrate IV .Q0M [facility] Rx#: [id number] Oral 0 200 Tube Feeding 40 20 Blood Product 190 Ffp Pher Conval Covid19 190 Acda 1 Unit [id number] Other 30 Output: Urine 250 123 465 Other: Voiding Method Indwelling Catheter Indwelling Catheter Indwelling Catheter ABP, PAP, CO, CI - Last Documented Arterial Blood Pressure 163/65 - Exam GENERAL EXAM: Alert, confused and restless today, morbidly obese 70-year-old gentleman, sedated, paralyzed, currently intubated on a mechanical ventilator. Orotracheal and orogastric tube are both in place. HEAD: Normocephalic. EYES: Normal reaction of pupils, equal size. NOSE: Clear with pink turbinates. THROAT: Crowding of posterior pharynx. No erythema or exudates. NECK: Short. No masses, no JVD. CHEST: No chest wall deformity. LUNGS: Equal air entry with crackles in the bilateral posterior bases. CVS: S1 and S2 normal with no audible murmur, regular rhythm. ABDOMEN: Obese, unable to appreciate any hepatosplenomegaly, normal bowel sounds, no guarding or rigidity. SPINE: No scoliosis or deformity SKIN: No rashes CENTRAL NERVOUS SYSTEM: Limited neurologic exam as the patient's currently intubated on a mechanical ventilator. EXTREMITIES: There is no peripheral edema. No clubbing, no cyanosis. Peripheral pulses are intact. - Labs CBC & Chem 7: 08/01/20 05:15 08/01/20 05:15 Labs: Abnormal Lab Results - Last 24 Hours (Table) 07/31/20 07/31/20 07/31/20 Range/Units 03:45 07:20 12:31 WBC (3.8-10.6) k/uL RBC (4.30-5.90) m/uL Hct (39.0-53.0) % Neutrophils # (1.3-7.7) k/uL Lymphocytes # (1.0-4.8) k/uL ABG pH (7.35-7.45) ABG pCO2 (35-45) mmHg ABG pO2 (83-108) mmHg ABG Total CO2 (19-24) mmol/L ABG O2 Saturation (94-97) % BUN (9-20) mg/dL Creatinine (0.66-1.25) mg/dL Glucose (74-99) mg/dL POC Glucose (mg/dL) 206 H 285 H (75-99) mg/dL Ferritin 1610.4 H (22.0-322.0) ng/mL AST (17-59) U/L ALT (4-49) U/L Alkaline Phosphatase (38-126) U/L Lactate Dehydrogenase (313-618) U/L C-Reactive Protein (<10.0) mg/L Total Protein (6.3-8.2) g/dL Albumin (3.5-5.0) g/dL 07/31/20 07/31/20 08/01/20 Range/Units 18:03 23:22 03:08 WBC (3.8-10.6) k/uL RBC (4.30-5.90) m/uL Hct (39.0-53.0) % Neutrophils # (1.3-7.7) k/uL Lymphocytes # (1.0-4.8) k/uL ABG pH (7.35-7.45) ABG pCO2 (35-45) mmHg ABG pO2 (83-108) mmHg ABG Total CO2 (19-24) mmol/L ABG O2 Saturation (94-97) % BUN (9-20) mg/dL Creatinine (0.66-1.25) mg/dL Glucose (74-99) mg/dL POC Glucose (mg/dL) 347 H 407 H 390 H (75-99) mg/dL Ferritin (22.0-322.0) ng/mL AST (17-59) U/L ALT (4-49) U/L Alkaline Phosphatase (38-126) U/L Lactate Dehydrogenase (313-618) U/L C-Reactive Protein (<10.0) mg/L Total Protein (6.3-8.2) g/dL Albumin (3.5-5.0) g/dL 08/01/20 08/01/20 08/01/20 Range/Units 04:49 05:15 05:15 WBC 14.7 H (3.8-10.6) k/uL RBC 4.26 L (4.30-5.90) m/uL Hct 38.5 L (39.0-53.0) % Neutrophils # 13.6 H (1.3-7.7) k/uL Lymphocytes # 0.4 L (1.0-4.8) k/uL ABG pH 7.21 L (7.35-7.45) ABG pCO2 57 H (35-45) mmHg ABG pO2 70 L (83-108) mmHg ABG Total CO2 25 H (19-24) mmol/L ABG O2 Saturation 92.8 L (94-97) % BUN 73 H (9-20) mg/dL Creatinine 1.91 H (0.66-1.25) mg/dL Glucose 400 H (74-99) mg/dL POC Glucose (mg/dL) (75-99) mg/dL Ferritin (22.0-322.0) ng/mL AST 116 H (17-59) U/L ALT 64 H (4-49) U/L Alkaline Phosphatase 164 H (38-126) U/L Lactate Dehydrogenase 2035 H (313-618) U/L C-Reactive Protein 40.3 H (<10.0) mg/L Total Protein 6.1 L (6.3-8.2) g/dL Albumin 3.2 L (3.5-5.0) g/dL Microbiology - Last 24 Hours (Table) 07/31/20 03:15 Gram Stain - Preliminary Sputum Sputum Culture - Preliminary 07/28/20 14:10 Blood Culture - Preliminary Blood No Growth after 72 hours Assessment and Plan Plan: 1 Acute hypoxemic respiratory failure secondary to CoVID 19 pneumonia/pneumonitis. Currently intubated on mechanical ventilator. The patient is also sedated and paralyzed. The patient is currently on Decadron 6 mg every 24 hours. The patient is also on Lovenox 40 mg subcu every 24 hours.. Received tocilizumab. Convalescent plasma was also given yesterday 1.. Currently intubated on a mechanical ventilator. He remains on Decadron. Remains on Lovenox. Chest x-ray still showing diffuse bilateral pulmonary infiltrates and the patient remains in acute hypoxic respiratory failure. Chest x-ray was noted. Blood gases was noted. We are quite limited in terms of his oxygenation and not of weaning can be done on today's evaluation. 2 Lymphocytopenia secondary to above 3 Mild transaminitis secondary to above 4 Troponin leak, suspect oxygen supply and demand mismatch 5 Morbid obesity with a BMI of 48.8 kg/m 6 acute kidney injury with a creatinine of 1.9, consider the possibility of a Covid 19 related ATN 7 Hyperkalemia, improved and normalized 8 History of coronary artery disease with previous stent placement 9 Hypertension 10 Hyperlipidemia 11 Diabetes mellitus, blood sugars remain under poor control and the patient is on high dose of Levemir 200 units along with a scale. 12 Obstructive sleep apnea, utilizing CPAP in the outpatient setting 13 Lifelong nonsmoker 14 BPH Plan: Currently intubated on a mechanical ventilator. Continue vent support the same setting for today. He is obviously doing worse with oxidation on his right side. We'll keep him on the left if possible. Chest x-ray was noted Blood gas was noted The patient has diffuse but the pulmonary infiltrates. Propofol for sedation and Nimbex for paralysis over the next 24 hours, we'll try to give him a paralytic holiday and assess his ability to stay off paralytics for now. Continue Decadron Received tocilizumab, convalescent plasma was also provided yesterday 1 dexamethasone, vitamin supplements Lovenox to 0.5 mg/kg every 12 hours The patient is currently on high dose of Levemir, add 20 units of NovoLog 4 times a day enteral feeding for nutritional support with vital high protein at 20 mL an hour The patient is currently on IV fluids to KVO Titrate the FiO2 as tolerated Obtain echocardiogram showing preserved LV function Prognosis is guarded We'll continue to follow and make further recommendations based on his clinical status. Critical care evaluation, condition is critical, critical care time more than 30 minutes Time with Patient: Greater than 30
[2020-08-01 07:06] LABS: Glucose,Whole Blood 382 mg/dL (75-99)
[2020-08-01] MEDS: ASCORBIC ACID 500 MG TAB PO SCH ×2 (08:09→20:11)
[2020-08-01] MEDS: CLOPIDOGREL 75 MG TAB PO SCH (08:10)
[2020-08-01] MEDS: dexAMETHasone 2 MG TAB PO SCH (08:10)
[2020-08-01] MEDS: TAMSULOSIN 0.4 MG CAP.ER.24H PO SCH (08:10)
[2020-08-01] MEDS: FAMOTIDINE 20 MG TAB PO SCH ×2 (08:10→20:11)
[2020-08-01] MEDS: METOPROLOL SUCCINATE (ER) 25 MG TAB.ER.24H PO SCH (08:10)
[2020-08-01] MEDS: ASPIRIN 81 MG PO SCH (08:10)
[2020-08-01] MEDS: CHLORHEXIDINE GLUCONATE 15 ML CUP MUCOUS MEM SCH ×2 (08:10→20:11)
[2020-08-01] MEDS: ZINC SULFATE 220 MG CAP PO SCH (08:10)
[2020-08-01] MEDS: allopurinoL 300 MG TAB PO SCH (08:12)
[2020-08-01] MEDS: ENOXAPARIN 80 MG/0.8 ML SYRINGE SQ SCH ×2 (08:12→20:14)
[2020-08-01] MEDS: ALBUTEROL HFA INHALER INHALATION PRN ×2 (08:27→20:19)
--- NOTE | 2020-08-01 08:53 | XR ---
EXAMINATION TYPE: XR chest 1V portable DATE OF EXAM: 08/01/2020 COMPARISON: 07/31/2020 HISTORY: Tube placement TECHNIQUE: Single frontal view of the chest is obtained. FINDINGS: ET and NG tube noted there is diffuse bilateral infiltrate and small effusion. Heart size stable. No pneumothorax. IMPRESSION: Diffuse bilateral infiltrate stable
[2020-08-01 12:39] LABS: Glucose,Whole Blood 381 mg/dL (75-99)
[2020-08-01] MEDS: SODIUM CHLORIDE 0.9% 1,000 ML IV SCH (12:40)
[2020-08-01 14:23] LABS: Ferritin 1397.1 ng/mL (22.0-322.0)
--- NOTE | 2020-08-01 15:17 | P.PN ---
Subjective Progress Note Date: 08/01/20 This is a 70-year-old gentleman admitted with acute coated 19 pneumonia and multiple other medical issues. Remains vent dependent with FiO2 100%/+15 of PEEP. ABGs noted. Chest x-ray reporting diffuse bilateral pulmonary infiltrates/consolidation ,including masslike ground opacity measuring 7 cm in the left upper lobe. Maintained on diprovan and Nimbex drips in addition to covert cocktail. Convalescent plasma ordered, pending. Echo reporting LV function EF 55-60%. D-dimer greater than 34, ferritin 1610, LDH 2780, CRP 64. 08/01/2020 percent dependent, FiO2 70%/+15 of PEEP. Sedated on diprovan and on Nimbex. ABGs noted, chest x-ray reporting stable diffuse bilateral infiltrates. Renal function worsening, creatinine up to 1.9. LDH 5, CRP 40.3. Received convalescent plasma yesterday. Blood sugars uncontrolled. Objective - Vital Signs Vital signs: Vital Signs Temp 98.9 F 08/01/20 08:00 Pulse 57 L 08/01/20 12:00 Resp 27 H 08/01/20 12:00 BP 116/78 08/01/20 07:00 Pulse Ox 94 L 08/01/20 12:00 Intake & Output 07/31/20 08/01/20 08/01/20 18:59 06:59 18:59 Intake Total 5102.888 7172.594 824.174 Output Total 123 505 260 Balance 6506.587 6450.594 564.174 Weight 146 kg 154 kg Intake: IV 1200 1200 520 Sodium Chloride 0.9% 1, 1200 1200 520 000 ml @ 20 mls/hr IV . Q24H [facility] Rx#:[id number] Intake, IV Titration 194.024 373.594 234.174 Amount Cisatracurium 200 mg In 173.594 95.484 Sodium Chloride 0.9% 180 ml @ 1 MCG/KG/MIN 8.76 mls/hr IV .[id number] [facility] Rx #:[id number] propofoL 1,000 mg In 194.024 200 138.69 Empty Bag 1 bag @ Titrate IV .Q0M [facility] Rx#: [id number] Oral 220 60 Tube Feeding 40 20 10 Blood Product 190 Ffp Pher Conval Covid19 190 Acda 1 Unit [id number] Other 30 Output: Urine 123 505 260 Other: Voiding Method Indwelling Catheter Indwelling Catheter Indwelling Catheter ABP, PAP, CO, CI - Last Documented Arterial Blood Pressure 176/73 - Exam PHYSICAL EXAMINATION: Physical exam limited, deferred to cnc maintenance mechanic to limit covid Exposure on intubated patient GENERAL: Obese patient, intubated, sedated and on paralytics. CARDIOVASCULAR: Telemetry sinus EXTREMITIES: No cyanosis, clubbing, or pedal edema. NEUROLOGICAL: Unable to assess at this time, patient intubated, sedated and on paralytics. - Labs CBC & Chem 7: 08/01/20 05:15 08/01/20 05:15 Labs: Abnormal Lab Results - Last 24 Hours (Table) 07/31/20 07/31/20 08/01/20 Range/Units 18:03 23:22 03:08 WBC (3.8-10.6) k/uL RBC (4.30-5.90) m/uL Hct (39.0-53.0) % Neutrophils # (1.3-7.7) k/uL Lymphocytes # (1.0-4.8) k/uL ABG pH (7.35-7.45) ABG pCO2 (35-45) mmHg ABG pO2 (83-108) mmHg ABG Total CO2 (19-24) mmol/L ABG O2 Saturation (94-97) % BUN (9-20) mg/dL Creatinine (0.66-1.25) mg/dL Glucose (74-99) mg/dL POC Glucose (mg/dL) 347 H 407 H 390 H (75-99) mg/dL Ferritin (22.0-322.0) ng/mL AST (17-59) U/L ALT (4-49) U/L Alkaline Phosphatase (38-126) U/L Lactate Dehydrogenase (313-618) U/L C-Reactive Protein (<10.0) mg/L Total Protein (6.3-8.2) g/dL Albumin (3.5-5.0) g/dL 08/01/20 08/01/20 08/01/20 Range/Units 04:49 05:15 05:15 WBC 14.7 H (3.8-10.6) k/uL RBC 4.26 L (4.30-5.90) m/uL Hct 38.5 L (39.0-53.0) % Neutrophils # 13.6 H (1.3-7.7) k/uL Lymphocytes # 0.4 L (1.0-4.8) k/uL ABG pH 7.21 L (7.35-7.45) ABG pCO2 57 H (35-45) mmHg ABG pO2 70 L (83-108) mmHg ABG Total CO2 25 H (19-24) mmol/L ABG O2 Saturation 92.8 L (94-97) % BUN 73 H (9-20) mg/dL Creatinine 1.91 H (0.66-1.25) mg/dL Glucose 400 H (74-99) mg/dL POC Glucose (mg/dL) (75-99) mg/dL Ferritin 1397.1 H (22.0-322.0) ng/mL AST 116 H (17-59) U/L ALT 64 H (4-49) U/L Alkaline Phosphatase 164 H (38-126) U/L Lactate Dehydrogenase 2035 H (313-618) U/L C-Reactive Protein 40.3 H (<10.0) mg/L Total Protein 6.1 L (6.3-8.2) g/dL Albumin 3.2 L (3.5-5.0) g/dL 08/01/20 08/01/20 Range/Units 07:05 12:36 WBC (3.8-10.6) k/uL RBC (4.30-5.90) m/uL Hct (39.0-53.0) % Neutrophils # (1.3-7.7) k/uL Lymphocytes # (1.0-4.8) k/uL ABG pH (7.35-7.45) ABG pCO2 (35-45) mmHg ABG pO2 (83-108) mmHg ABG Total CO2 (19-24) mmol/L ABG O2 Saturation (94-97) % BUN (9-20) mg/dL Creatinine (0.66-1.25) mg/dL Glucose (74-99) mg/dL POC Glucose (mg/dL) 382 H 381 H (75-99) mg/dL Ferritin (22.0-322.0) ng/mL AST (17-59) U/L ALT (4-49) U/L Alkaline Phosphatase (38-126) U/L Lactate Dehydrogenase (313-618) U/L C-Reactive Protein (<10.0) mg/L Total Protein (6.3-8.2) g/dL Albumin (3.5-5.0) g/dL Microbiology - Last 24 Hours (Table) 07/31/20 03:15 Gram Stain - Preliminary Sputum Sputum Culture - Preliminary 07/28/20 14:10 Blood Culture - Preliminary Blood No Growth after 72 hours Assessment and Plan Assessment: Sepsis secondary to Acute Covid-19 pneumonia, present on admission, status post convalescent plasma Acute hypoxic respiratory failure, secondary to the above, ventilator dependent, requiring paralytics Hypovolemic hyponatremia,resolved. Acute renal failure secondary to Covid, sepsis Elevated LFTs secondary to coronal virus Elevated troponins, 0.050, 0.058, 0.045, suspect hypoxia induced ,related to coronavirus Morbid obesity, BMI 43.7 Restrictive lung disease secondary to the above Obstructive sleep apnea, uses CPAP outpatient CAD, history of cardiac stents COPD without acute exacerbation Diabetes mellitus type 2, hyperglycemic Hypertension BPH Plan: Continue on current medication regime ,monitoring and symptomatic treatment. IV fluids, Covid cocktail. Continues on high doses of both regular and long-acting insulin- ICU management as per cnc maintenance mechanic. Long-acting insulin plus scheduled NovoLog, close monitoring of Accu-Cheks. Prognosis guarded given multiple complex medical issues. The impression and plan of care has been dictated as directed. : I performed a history and examination of this patient, discussed the same with the dictator. I agree with the dictator's note ,documented as a scribe. Any additional findings or plans will be noted.
[2020-08-01 17:29] LABS: Glucose,Whole Blood 417 mg/dL (75-99)
[2020-08-01 20:00] LABS: Glucose,Whole Blood 354 mg/dL (75-99)
[2020-08-01] MEDS: ATORVASTATIN 40 MG TAB PO SCH (20:11)
[2020-08-01] MEDS: INSULIN DETEMIR (LEVEMIR) 100 UNIT/ML SYR SQ SCH (20:11)
[2020-08-01] MEDS ORDERED: INSULIN REGULAR BOLUS (FROM DRIP BAG) IV PRN (20:51)
[2020-08-01] MEDS: INSULIN REGULAR 100 UNIT in SODIUM CHLORIDE 0.9% 100 ML IV SCH (21:07)
[2020-08-01 22:00] LABS: Glucose,Whole Blood 357 mg/dL (75-99)
[2020-08-01 23:11] LABS: Glucose,Whole Blood 307 mg/dL (75-99)
[2020-08-02 00:14] LABS: Glucose,Whole Blood 260 mg/dL (75-99)
[2020-08-02] MEDS: INSULIN REGULAR 100 UNIT in SODIUM CHLORIDE 0.9% 100 ML IV SCH ×3 (00:16→12:24)
[2020-08-02] MEDS: CISATRACURIUM 200 MG in SODIUM CHLORIDE 0.9% 180 ML IV SCH ×2 (00:42→20:54)
[2020-08-02] MEDS: ARTIFICIAL TEARS OINTMENT 3.5 GM TUBE BOTH EYES SCH ×8 (00:43→23:17)
[2020-08-02 01:16] LABS: Glucose,Whole Blood 304 mg/dL (75-99)
[2020-08-02 02:12] LABS: Glucose,Whole Blood 293 mg/dL (75-99)
[2020-08-02 03:06] LABS: Glucose,Whole Blood 255 mg/dL (75-99)
[2020-08-02 04:18] LABS: Glucose,Whole Blood 229 mg/dL (75-99)
[2020-08-02 04:30] LABS: ABG HCO3 24 mmol/L (21-25); ABG Oxygen Saturation 95.6 % (94-97); ABG PCO2 61 mmHg (35-45); ABG PH 7.21 (7.35-7.45); ABG PO2 80 mmHg (83-108); ABG TCO2 26 mmol/L (19-24); Allen Test Performed? Yes
[2020-08-02 05:20] LABS: Glucose,Whole Blood 226 mg/dL (75-99)
[2020-08-02 06:17] LABS: Glucose,Whole Blood 207 mg/dL (75-99)
[2020-08-02 06:22] LABS: HCT 39.1 % (39.0-53.0); HGB 13.7 gm/dL (13.0-17.5); MCHC 34.9 g/dL (31.0-37.0); MCV 88.8 fL (80.0-100.0); Mean Platelet Volume 7.7; Platelet Count 216 k/uL (150-450); RDW 14.5 % (11.5-15.5)
[2020-08-02 06:41] LABS: Calcium 9.1 mg/dL (8.4-10.2); Potassium 4.6 mmol/L (3.5-5.1)
[2020-08-02 07:02] LABS: Glucose,Whole Blood 190 mg/dL (75-99)
[2020-08-02 07:10] LABS: Band Neutrophils % 6 %; Lymphocytes # (M) 0.75 k/uL (1.0-4.8); Metamyelocytes % 2 %; Monocytes # (M) 0.45 k/uL (0-1.0); Neutrophils % (M) 84 %; Nucleated Red Blood Cells 0 /100 WBC (0-0); Total Cells Counted 100
[2020-08-02 08:20] LABS: Glucose,Whole Blood 190 mg/dL (75-99)
[2020-08-02] MEDS: ALBUTEROL HFA INHALER INHALATION PRN ×4 (08:24→19:23)
[2020-08-02] MEDS: allopurinoL 300 MG TAB PO SCH (08:28)
[2020-08-02] MEDS: ENOXAPARIN 80 MG/0.8 ML SYRINGE SQ SCH ×2 (08:29→20:52)
[2020-08-02] MEDS: CHLORHEXIDINE GLUCONATE 15 ML CUP MUCOUS MEM SCH ×2 (08:29→20:53)
[2020-08-02] MEDS: dexAMETHasone 2 MG TAB PO SCH (08:30)
[2020-08-02] MEDS: FAMOTIDINE 20 MG TAB PO SCH (08:30)
[2020-08-02] MEDS: ZINC SULFATE 220 MG CAP PO SCH (08:30)
[2020-08-02] MEDS: METOPROLOL SUCCINATE (ER) 25 MG TAB.ER.24H PO SCH (08:30)
[2020-08-02] MEDS: ASPIRIN 81 MG PO SCH (08:30)
[2020-08-02] MEDS: TAMSULOSIN 0.4 MG CAP.ER.24H PO SCH (08:31)
[2020-08-02] MEDS: ASCORBIC ACID 500 MG TAB PO SCH ×2 (08:31→20:52)
[2020-08-02] MEDS: CLOPIDOGREL 75 MG TAB PO SCH (08:31)
[2020-08-02] MEDS ORDERED: FUROSEMIDE 10 MG/ML 10 ML VIAL IV STA (08:52)
--- NOTE | 2020-08-02 08:53 | P.PN ---
Subjective Progress Note Date: 08/02/20 Acute CoVID 19 pneumonia/pneumonitis This is a very pleasant 70-year-old morbidly obese gentleman with a known history of diabetes mellitus, coronary artery disease with previous stent placement, gout, hypertension, hyperlipidemia, BPH. He does have a history of obstructive sleep apnea and utilizes CPAP at home nightly. He is a lifelong nonsmoker. He has seen Dr. Melendez in the past and was told his lung function is "good". Yesterday he had been seen by his PCP regarding increasing shortness of breath, cough, fatigue and was treated with azithromycin. CoVID 19 test was negative according to the patient. His symptoms progressed and he presented here to the emergency room as afternoon. He was found to have a room air pulse oximetry reading of 76%. Respiratory rate 26. Hypertensive. Temperature 100.8. Chest x-ray reveals progressive diffuse bilateral patchy infiltrates. He is seen today in the emergency room currently on BiPAP 18/8 and 70% FiO2 to maintain O2 saturations in the low 90s. White count 9.6. Hemoglobin 13.2. Lymphocytes 0.7. D-dimer 1.37. Sodium 129. Potassium 5.8. Bicarb 21. Creatinine 1.22. AST 155. ALT 67. Lactic acid 1.6. Troponin 0.05, 0.058 proBNP 765. Martin virus positive by PCR. He's been initiated on albuterol, vitamin supplements, dexamethasone, Lovenox. The patient is seen today 07/29/2020 in follow-up in the emergency department. He remains on BiPAP 18/8 and 70% FiO2. 0.9 normal saline at 100 ML's per hour. He is awake and alert in no acute distress. Breathing a bit easier today compared to yesterday. Maintaining O2 saturations in the 90s. Afebrile. Less tachypneic. Actually feels his pressure is too high on the BiPAP. He does have a home device to set at 13/8. Ipap is decreased to 13 now. He did receive Tocilizumab yesterday. Convalescent plasma is pending. Sodium 133. Potassium 5.3. Creatinine 1.65. Glucose 508. AST 94. ALT 59. He is on Levemir 150 units daily at bedtime along with a 20 mg in the morning and sliding scale. He remains on Lovenox, Decadron, vitamin supplements. The patient is seen today 07/30/2020 in follow-up on the selective care unit. He is currently sitting up in bed. Awake and alert. Somewhat confused to time and place. His son is at the bedside. He is still requiring BiPAP at 18/8 and 100% FiO2. Restless at times. Was given Ativan without much improvement. Arterial blood gases on 70% FiO2 revealed a pO2 58, pCO2 30, pH 7.47. Sodium 136. Potassium 4.5. Creatinine 1.32. AST 110. ALT 65. Remains on Lovenox, dexamethasone, vitamin supplements. On today's evaluation of 07/31/2020, the patient remains on BiPAP at a pressure of 18/8 cm of water with an FiO2 of 100%. There is a 70-year-old male patient obese with a BMI of 43.7 was being treated for a COVID 19 the related pneumonia. The patient has known history of coronary artery disease, hypertension and hyperlipidemia and diabetes mellitus. The patient has received a combination of treatment and the patient is currently on Lovenox, Decadron and multivitamins. Based on yesterday's inflammatory markers, the levels were still elevated and LDH was 2384 with a CRP of 78. Patient afebrile. The patient is hemodynamically stable. The chest x-ray showing extensive but the pulmonary infiltrate and smaller lung volumes. The patient was ordered convalescent plasma, hasn't been transfused.. The patient on Levemir insulin for blood sugar control along with a slight scale coverage. Note that the patient was on BiPAP throughout the night and the patient earlier this morning decompensated and the patient became progressively more hypoxic and based on that the patient was intubated and placed on a mechanical ventilator. Currently is on assist control mode at the rate of 24 with a tidal volume of 500 and FiO2 of 100% with a PEEP of 35. The patient has an I:E ratio of 1-1.2. Minute ventilation is around 12 L per minute. Chest x-ray showing diffuse bilateral pulmonary infiltrates/consolidation. NG tube is in place. ET tube is seen 3 cm above the humera. The pH is at 7.47 and a pCO2 30 and a pO2 of 58 post intubation. Based on that, the PEEP was increased up to 15 and the patient's FiO2 is currently running at 100% Pulse ox is 95. Blood work from today shows a creatinine of 1.3 with a BUN of 54. White cell count is at 15.4 with hemoglobin 13.9. Inflammatory markers today shows an LDH level of 2384, CRP of 78. The patient is sedated with propofol which is running at 40 mg/kg per minute and Nimbex is running at 1 mcg/kg per minute as the patient is paralyzed along with his sedation. The patient is also on Lovenox 40 mg subcu every 24 hours. The patient is on steroids in the patient is receiving Decadron 6 mg IV every 24 hours. He is on Levemir insulin 200 units daily at bedtime and 12 units subcu daily along with NovoLog 40 units 3 times a day and a scale for blood sugar control. On 08/01/2020 the patient is being seen for a follow-up. The patient is currently intubated on a mechanical ventilator. The patient was intubated yesterday because of progressive hypoxemia and respiratory failure. He is a Covid 19 related pneumonia with secondary respiratory failure. At this point in time, the patient is sedated and the patient is currently on propofol running at 50 mics for respiratory per minute and he is also on Nimbex at 1 mcg/kg per minute. The patient is also on normal saline at the rate of 100 mL an hour. This morning, the patient is well sedated and he is quite sensitive the mechanical ventilator. I see him on assist control mode at the rate of 24 with a tidal volume of 100 and FiO2 of 70% with a PEEP of 15. The blood gases from today shows a pH of 7.1 with a pCO2 of 57 and pO2 of 69. The chest x-ray from today is showing patchy bilateral pulmonary infiltrates, more so in the lower lobes compared to the lower lobes although the infiltrates are rather diffuse. ET tube remains in good location. Comparing to yesterday's chest x-ray, there is essentially no major interval change. The patient's peak airway pressures 34 with a static pressures around 31. The patient definitely does worse in terms of his oxygenation whenever his late on his right side and he does better on the left. Echocardiogram is showing a preserved LV function with an ejection fraction of 55-60%. In terms of his blood work, the patient's inflammatory mar kers show an LDH level of 2034 with a CRP of 40.3. He has developed also an acute kidney injury in the creatinine is up to 1.9 compared to yesterday and the patient has a white cell count of 14.7 with a hemoglobin of 13. Blood sugar from this today is at 390. The patient is receiving Levemir 200 units daily at bedtime scale along with a scale on top and despite all this is not well controlled. He is receiving enteral feeding for nutritional support and is currently on vital high protein at the rate of 20 mL an hour. His net fluid balance over the past 24 hours is +2.7 L. Patient remains on Lovenox 1 mg subcu every 12 hours. He d-dimer from yesterday was above 34. 08/02/2040, the patient remains on a mechanical ventilator, remains sedated and paralyzed. Currently on propofol running at 50 mcg/kg per minute and Pneumovax running at 2.5 mcg/kg per minute. He is on a mechanical ventilator, essentially the same vent setting with a rate of 24, tidal volume of 500 and FiO2 of 60% wi th a PEEP of 15. Peak airway pressure was 33, static pressure was 30. Blood gases showing a pH of 7.21 with a pCO2 of 61 and pO2 of 80. This was done and FiO2 of 60%. The chest x-ray showing patchy bilateral pulmonary infiltrates, essentially stable compared to yesterday. There may be some interval improvement in the left-sided pulmonary infiltrates. ET tube remains in a good location. The patient also has a orogastric tube. In terms of treatment, the patient is on steroids and the patient is receiving Decadron 6 mg IV every 24 hours. The patient is on Levemir insulin 200 units in addition to 19 units an hour on a insulin drip for adequate blood sugar control. The patient is on vit al high protein at the rate of 20 mL an hour. Fluid balance has been +1 L over the past 24 hours and 2.8 L 40 yesterday. Echo was adequate LV function. Rest of the blood work is showing a d-dimer of 25.4, lower compared to yesterday, LDH of 2034 from yesterday which was lower and a CRP of 40 from yesterday which was also lower. Rest of the inflammatory markers from today are still pending. As such, the patient's condition is been essentially stable, probably unchanged compared to yesterday. Objective - Vital Signs Vital signs: Vital Signs Temp 98.0 F 08/02/20 03:00 Pulse 63 08/02/20 07:00 Resp 24 08/02/20 07:00 BP 116/78 08/02/20 07:00 Pulse Ox 87 L 08/02/20 07:00 Intake & Output 08/01/20 08/02/20 08/02/20 18:59 06:59 18:59 Intake Total 0307.417 6214.572 162.168 Output Total 560 1000 80 Balance 802.498 262.572 82.168 Weight 145.5 kg Intake: IV 600 220 20 Sodium Chloride 0.9% 1, 600 220 20 000 ml @ 20 mls/hr IV . Q24H [facility] Rx#:[id number] Intake, IV Titration 362.498 712.572 142.168 Amount Cisatracurium 200 mg In 123.808 42.486 Sodium Chloride 0.9% 180 ml @ 1 MCG/KG/MIN 8.76 mls/hr IV .[id number] [facility] Rx #:[id number] Insulin Regular 100 unit 173.726 42.168 In Sodium Chloride 0.9% 100 ml @ Per Protocol IV .Q0M [facility] Rx#:[id number] propofoL 1,000 mg In 238.69 496.36 100 Empty Bag 1 bag @ Titrate IV .Q0M [facility] Rx#: [id number] Oral 60 90 Tube Feeding 250 210 Other 90 30 Output: Urine 560 1000 80 Other: Voiding Method Indwelling Catheter Indwelling Catheter ABP, PAP, CO, CI - Last Documented Arterial Blood Pressure 129/65 - Exam GENERAL EXAM: Alert, confused and restless today, morbidly obese 70-year-old gentleman, sedated, paralyzed, currently intubated on a mechanical ventilator. Orotracheal and orogastric tube are both in place. HEAD: Normocephalic. EYES: Normal reaction of pupils, equal size. NOSE: Clear with pink turbinates. THROAT: Crowding of posterior pharynx. No erythema or exudates. NECK: Short. No masses, no JVD. CHEST: No chest wall deformity. LUNGS: Equal air entry with crackles in the bilateral posterior bases. CVS: S1 and S2 normal with no audible murmur, regular rhythm. ABDOMEN: Obese, unable to appreciate any hepatosplenomegaly, normal bowel sounds, no guarding or rigidity. SPINE: No scoliosis or deformity SKIN: No rashes CENTRAL NERVOUS SYSTEM: Limited neurologic exam as the patient's currently intubated on a mechanical ventilator. EXTREMITIES: There is no peripheral edema. No clubbing, no cyanosis. Peripheral pulses are intact. - Labs CBC & Chem 7: 08/02/20 05:19 08/02/20 05:19 Labs: Abnormal Lab Results - Last 24 Hours (Table) 08/01/20 08/01/20 08/01/20 Range/Units 05:15 12:36 17:27 WBC (3.8-10.6) k/uL Neutrophils # (Manual) (1.3-7.7) k/uL Lymphocytes # (Manual) (1.0-4.8) k/uL Metamyelocytes # (Man) (0) k/uL D-Dimer (<0.60) mg/L FEU ABG pH (7.35-7.45) ABG pCO2 (35-45) mmHg ABG pO2 (83-108) mmHg ABG Total CO2 (19-24) mmol/L Chloride (98-107) mmol/L BUN (9-20) mg/dL Creatinine (0.66-1.25) mg/dL Glucose (74-99) mg/dL POC Glucose (mg/dL) 381 H 417 H (75-99) mg/dL Ferritin 1397.1 H (22.0-322.0) ng/mL 08/01/20 08/01/20 08/01/20 Range/Units 19:58 21:58 23:09 WBC (3.8-10.6) k/uL Neutrophils # (Manual) (1.3-7.7) k/uL Lymphocytes # (Manual) (1.0-4.8) k/uL Metamyelocytes # (Man) (0) k/uL D-Dimer (<0.60) mg/L FEU ABG pH (7.35-7.45) ABG pCO2 (35-45) mmHg ABG pO2 (83-108) mmHg ABG Total CO2 (19-24) mmol/L Chloride (98-107) mmol/L BUN (9-20) mg/dL Creatinine (0.66-1.25) mg/dL Glucose (74-99) mg/dL POC Glucose (mg/dL) 354 H 357 H 307 H (75-99) mg/dL Ferritin (22.0-322.0) ng/mL 08/02/20 08/02/20 08/02/20 Range/Units 00:12 01:14 02:10 WBC (3.8-10.6) k/uL Neutrophils # (Manual) (1.3-7.7) k/uL Lymphocytes # (Manual) (1.0-4.8) k/uL Metamyelocytes # (Man) (0) k/uL D-Dimer (<0.60) mg/L FEU ABG pH (7.35-7.45) ABG pCO2 (35-45) mmHg ABG pO2 (83-108) mmHg ABG Total CO2 (19-24) mmol/L Chloride (98-107) mmol/L BUN (9-20) mg/dL Creatinine (0.66-1.25) mg/dL Glucose (74-99) mg/dL POC Glucose (mg/dL) 260 H 304 H 293 H (75-99) mg/dL Ferritin (22.0-322.0) ng/mL 08/02/20 08/02/20 08/02/20 Range/Units 03:04 04:16 04:25 WBC (3.8-10.6) k/uL Neutrophils # (Manual) (1.3-7.7) k/uL Lymphocytes # (Manual) (1.0-4.8) k/uL Metamyelocytes # (Man) (0) k/uL D-Dimer (<0.60) mg/L FEU ABG pH 7.21 L (7.35-7.45) ABG pCO2 61 H (35-45) mmHg ABG pO2 80 L (83-108) mmHg ABG Total CO2 26 H (19-24) mmol/L Chloride (98-107) mmol/L BUN (9-20) mg/dL Creatinine (0.66-1.25) mg/dL Glucose (74-99) mg/dL POC Glucose (mg/dL) 255 H 229 H (75-99) mg/dL Ferritin (22.0-322.0) ng/mL 08/02/20 08/02/20 08/02/20 Range/Units 05:00 05:19 05:19 WBC 15.0 H (3.8-10.6) k/uL Neutrophils # (Manual) 13.50 H (1.3-7.7) k/uL Lymphocytes # (Manual) 0.75 L (1.0-4.8) k/uL Metamyelocytes # (Man) 0.30 H (0) k/uL D-Dimer 25.47 H (<0.60) mg/L FEU ABG pH (7.35-7.45) ABG pCO2 (35-45) mmHg ABG pO2 (83-108) mmHg ABG Total CO2 (19-24) mmol/L Chloride (98-107) mmol/L BUN (9-20) mg/dL Creatinine (0.66-1.25) mg/dL Glucose (74-99) mg/dL POC Glucose (mg/dL) 226 H (75-99) mg/dL Ferritin (22.0-322.0) ng/mL 08/02/20 08/02/20 08/02/20 Range/Units 05:19 06:08 07:00 WBC (3.8-10.6) k/uL Neutrophils # (Manual) (1.3-7.7) k/uL Lymphocytes # (Manual) (1.0-4.8) k/uL Metamyelocytes # (Man) (0) k/uL D-Dimer (<0.60) mg/L FEU ABG pH (7.35-7.45) ABG pCO2 (35-45) mmHg ABG pO2 (83-108) mmHg ABG Total CO2 (19-24) mmol/L Chloride 109 H (98-107) mmol/L BUN 79 H (9-20) mg/dL Creatinine 2.04 H (0.66-1.25) mg/dL Glucose 220 H (74-99) mg/dL POC Glucose (mg/dL) 207 H 190 H (75-99) mg/dL Ferritin (22.0-322.0) ng/mL 08/02/20 Range/Units 08:18 WBC (3.8-10.6) k/uL Neutrophils # (Manual) (1.3-7.7) k/uL Lymphocytes # (Manual) (1.0-4.8) k/uL Metamyelocytes # (Man) (0) k/uL D-Dimer (<0.60) mg/L FEU ABG pH (7.35-7.45) ABG pCO2 (35-45) mmHg ABG pO2 (83-108) mmHg ABG Total CO2 (19-24) mmol/L Chloride (98-107) mmol/L BUN (9-20) mg/dL Creatinine (0.66-1.25) mg/dL Glucose (74-99) mg/dL POC Glucose (mg/dL) 190 H (75-99) mg/dL Ferritin (22.0-322.0) ng/mL Microbiology - Last 24 Hours (Table) 07/28/20 14:10 Blood Culture - Preliminary Blood No Growth after 96 hours Assessment and Plan Plan: 1 Acute hypoxemic respiratory failure secondary to CoVID 19 pneumonia/pneumonitis. Currently intubated on mechanical ventilator. The patient is also sedated and paralyzed. The patient is currently on Decadron 6 mg every 24 hours. The patient is also on Lovenox 70 mg subcu every 12 hours.. Received tocilizumab. Convalescent plasma was also given yesterday 1.. Currently intubated on a mechanical ventilator. He remains on Decadron. Remains on Lovenox. Chest x-ray still showing diffuse bilateral pulmonary infiltrates and the patient remains in acute hypoxic respiratory failure. Chest x-ray was noted. Blood gases was noted. 2 Lymphocytopenia secondary to above 3 Mild transaminitis secondary to above, needs a follow-up knowing that the LFTs were still elevated from yesterday. 4 Troponin leak, suspect oxygen supply and demand mismatch 5 Morbid obesity with a BMI of 43 kg/m 6 acute kidney injury with a creatinine of 1.9, consider the possibility of a Covid 19 related ATN, and the creatinine is also on the rise at 2.04 on today's evaluation. Urine output is order of chronic disease and our the patient has no significant hyperkalemia or metabolic acidosis. 7 Hyperkalemia, improved and normalized 8 History of coronary artery disease with previous stent placement 9 Hypertension 10 Hyperlipidemia 11 Diabetes mellitus, blood sugars remain under poor control and the patient is on high dose of Levemir 200 units along with a scale. Patient is also on insulin drip at 19 units an hour 12 Obstructive sleep apnea, utilizing CPAP in the outpatient setting 13 Lifelong nonsmoker 14 BPH Plan: Currently intubated on a mechanical ventilator. Continue vent support the same setting for today. He is obviously doing worse with )2 on his right side. We'll keep him on the left if possible. Chest x-ray was noted, ration but or limited infiltration improvement on the left Blood gas was noted Propofol for sedation and Nimbex for paralysis over the next 24 hours, we'll try to give him a paralytic holiday and assess his ability to stay off paralytics for now. Continue Decadron Received tocilizumab, convalescent plasma was also provided yesterday 1 dexamethasone, vitamin supplements Lovenox to 0.5 mg/kg every 12 hours The patient is currently on high dose of Levemir 200 units in addition to a 19 units of insulin drip for blood sugar control enteral feeding for nutritional support with vital high protein at 20 mL an hour The patient is currently on IV fluids to KVO Titrate the FiO2 as tolerated Obtain echocardiogram showing preserved LV function Lasix 60 mg IV 1 Prognosis is guarded We'll continue to follow and make further recommendations based on his clinical status. Critical care evaluation, condition is critical, critical care time more than 30 minutes Time with Patient: Greater than 30
[2020-08-02] MEDS ORDERED: FUROSEMIDE 10 MG/ML 4 ML VIAL IV SCH (09:00)
[2020-08-02 09:38] LABS: ALT 62 U/L (4-49); AST 93 U/L (17-59); Alkaline Phosphatase 174 U/L (38-126); Amylase 73 U/L (30-110); Lipase 163 U/L (23-300)
--- NOTE | 2020-08-02 09:39 | XR ---
EXAMINATION TYPE: XR chest 1V portable DATE OF EXAM: 08/02/2020 COMPARISON: Chest x-ray 08/01/2020 HISTORY: Intubated TECHNIQUE: Single frontal view of the chest is obtained. FINDINGS: Endotracheal tube and NG tube are overlying appropriate positions, there are overlying elizabeth ds, artifacts. There is no evident pneumothorax or pleural effusion. Bilateral prominent interstitial densities, airspace disease is again seen. Cardiac mediastinal silhouette stable. IMPRESSION: Correlate for pneumonia
[2020-08-02 09:51] LABS: Triglycerides 1140 mg/dL (<150)
[2020-08-02 10:00] LABS: Glucose,Whole Blood 169 mg/dL (75-99)
[2020-08-02] MEDS: SODIUM CHLORIDE 0.9% 1,000 ML IV SCH (11:05)
--- NOTE | 2020-08-02 11:33 | P.PN ---
Subjective Progress Note Date: 08/02/20 This is a 70-year-old gentleman admitted with acute coated 19 pneumonia and multiple other medical issues. Remains vent dependent with FiO2 100%/+15 of PEEP. ABGs noted. Chest x-ray reporting diffuse bilateral pulmonary infiltrates/consolidation ,including masslike ground opacity measuring 7 cm in the left upper lobe. Maintained on diprovan and Nimbex drips in addition to covert cocktail. Convalescent plasma ordered, pending. Echo reporting LV function EF 55-60%. D-dimer greater than 34, ferritin 1610, LDH 2780, CRP 64. 08/01/2020 Vent dependent, FiO2 70%/+15 of PEEP. Sedated on diprovan and on Nimbex. ABGs noted, chest x-ray reporting stable diffuse bilateral infiltrates. Renal function worsening, creatinine up to 1.9. LDH 5, CRP 40.3. Received convalescent plasma yesterday. Blood sugars uncontrolled. 08/02/2020 Vent Dependent, FiO2 60%/+15 of PEEP. Sedated on diprovan, pa ralyzed on Nimbex. Chest x-ray reporting persistent bilateral prominent interstitial densities. Continue on covid cocktail including IV Decadron. Inflammatory markers decreasing. Tolerating tube feeds at goal with minimal to no residuals. Blood sugars ranging from 160s to 350s, on both high-dose Levemir insulin and insulin drip. Objective - Vital Signs Vital signs: Vital Signs Temp 98.0 F 08/02/20 03:00 Pulse 63 08/02/20 07:00 Resp 24 08/02/20 07:00 BP 116/78 08/02/20 07:00 Pulse Ox 87 L 08/02/20 07:00 Intake & Output 08/01/20 08/02/20 08/02/20 18:59 06:59 18:59 Intake Total 5394.821 5878.572 325.242 Output Total 560 1000 80 Balance 802.498 262.572 245.242 Weight 145.5 kg Intake: IV 600 220 20 Sodium Chloride 0.9% 1, 600 220 20 000 ml @ 20 mls/hr IV . Q24H [facility] Rx#:[id number] Intake, IV Titration 362.498 712.572 305.242 Amount Cisatracurium 200 mg In 123.808 42.486 36.427 Sodium Chloride 0.9% 180 ml @ 1 MCG/KG/MIN 8.76 mls/hr IV .[id number] [facility] Rx #:[id number] Insulin Regular 100 unit 173.726 68.815 In Sodium Chloride 0.9% 100 ml @ Per Protocol IV .Q0M [facility] Rx#:[id number] propofoL 1,000 mg In 238.69 496.36 200 Empty Bag 1 bag @ Titrate IV .Q0M [facility] Rx#: [id number] Oral 60 90 Tube Feeding 250 210 Other 90 30 Output: Urine 560 1000 80 Other: Voiding Method Indwelling Catheter Indwelling Catheter ABP, PAP, CO, CI - Last Documented Arterial Blood Pressure 129/65 - Exam PHYSICAL EXAMINATION: Physical exam limited, deferred to qa software test engineer to limit covid Exposure on intubated patient GENERAL: Obese patient, intubated, sedated and on paralytics. CARDIOVASCULAR: Telemetry sinus NEUROLOGICAL: Unable to assess at this time, patient intubated, sedated and on paralytics. - Labs CBC & Chem 7: 08/02/20 05:19 08/02/20 05:19 Labs: Abnormal Lab Results - Last 24 Hours (Table) 08/01/20 08/01/20 08/01/20 Range/Units 05:15 12:36 17:27 WBC (3.8-10.6) k/uL Neutrophils # (Manual) (1.3-7.7) k/uL Lymphocytes # (Manual) (1.0-4.8) k/uL Metamyelocytes # (Man) (0) k/uL D-Dimer (<0.60) mg/L FEU ABG pH (7.35-7.45) ABG pCO2 (35-45) mmHg ABG pO2 (83-108) mmHg ABG Total CO2 (19-24) mmol/L Chloride (98-107) mmol/L BUN (9-20) mg/dL Creatinine (0.66-1.25) mg/dL Glucose (74-99) mg/dL POC Glucose (mg/dL) 381 H 417 H (75-99) mg/dL Ferritin 1397.1 H (22.0-322.0) ng/mL AST (17-59) U/L ALT (4-49) U/L Alkaline Phosphatase (38-126) U/L Triglycerides (<150) mg/dL 08/01/20 08/01/20 08/01/20 Range/Units 19:58 21:58 23:09 WBC (3.8-10.6) k/uL Neutrophils # (Manual) (1.3-7.7) k/uL Lymphocytes # (Manual) (1.0-4.8) k/uL Metamyelocytes # (Man) (0) k/uL D-Dimer (<0.60) mg/L FEU ABG pH (7.35-7.45) ABG pCO2 (35-45) mmHg ABG pO2 (83-108) mmHg ABG Total CO2 (19-24) mmol/L Chloride (98-107) mmol/L BUN (9-20) mg/dL Creatinine (0.66-1.25) mg/dL Glucose (74-99) mg/dL POC Glucose (mg/dL) 354 H 357 H 307 H (75-99) mg/dL Ferritin (22.0-322.0) ng/mL AST (17-59) U/L ALT (4-49) U/L Alkaline Phosphatase (38-126) U/L Triglycerides (<150) mg/dL 08/02/20 08/02/20 08/02/20 Range/Units 00:12 01:14 02:10 WBC (3.8-10.6) k/uL Neutrophils # (Manual) (1.3-7.7) k/uL Lymphocytes # (Manual) (1.0-4.8) k/uL Metamyelocytes # (Man) (0) k/uL D-Dimer (<0.60) mg/L FEU ABG pH (7.35-7.45) ABG pCO2 (35-45) mmHg ABG pO2 (83-108) mmHg ABG Total CO2 (19-24) mmol/L Chloride (98-107) mmol/L BUN (9-20) mg/dL Creatinine (0.66-1.25) mg/dL Glucose (74-99) mg/dL POC Glucose (mg/dL) 260 H 304 H 293 H (75-99) mg/dL Ferritin (22.0-322.0) ng/mL AST (17-59) U/L ALT (4-49) U/L Alkaline Phosphatase (38-126) U/L Triglycerides (<150) mg/dL 08/02/20 08/02/20 08/02/20 Range/Units 03:04 04:16 04:25 WBC (3.8-10.6) k/uL Neutrophils # (Manual) (1.3-7.7) k/uL Lymphocytes # (Manual) (1.0-4.8) k/uL Metamyelocytes # (Man) (0) k/uL D-Dimer (<0.60) mg/L FEU ABG pH 7.21 L (7.35-7.45) ABG pCO2 61 H (35-45) mmHg ABG pO2 80 L (83-108) mmHg ABG Total CO2 26 H (19-24) mmol/L Chloride (98-107) mmol/L BUN (9-20) mg/dL Creatinine (0.66-1.25) mg/dL Glucose (74-99) mg/dL POC Glucose (mg/dL) 255 H 229 H (75-99) mg/dL Ferritin (22.0-322.0) ng/mL AST (17-59) U/L ALT (4-49) U/L Alkaline Phosphatase (38-126) U/L Triglycerides (<150) mg/dL 08/02/20 08/02/20 08/02/20 Range/Units 05:00 05:19 05:19 WBC 15.0 H (3.8-10.6) k/uL Neutrophils # (Manual) 13.50 H (1.3-7.7) k/uL Lymphocytes # (Manual) 0.75 L (1.0-4.8) k/uL Metamyelocytes # (Man) 0.30 H (0) k/uL D-Dimer 25.47 H (<0.60) mg/L FEU ABG pH (7.35-7.45) ABG pCO2 (35-45) mmHg ABG pO2 (83-108) mmHg ABG Total CO2 (19-24) mmol/L Chloride (98-107) mmol/L BUN (9-20) mg/dL Creatinine (0.66-1.25) mg/dL Glucose (74-99) mg/dL POC Glucose (mg/dL) 226 H (75-99) mg/dL Ferritin (22.0-322.0) ng/mL AST (17-59) U/L ALT (4-49) U/L Alkaline Phosphatase (38-126) U/L Triglycerides (<150) mg/dL 08/02/20 08/02/20 08/02/20 Range/Units 05:19 05:19 06:08 WBC (3.8-10.6) k/uL Neutrophils # (Manual) (1.3-7.7) k/uL Lymphocytes # (Manual) (1.0-4.8) k/uL Metamyelocytes # (Man) (0) k/uL D-Dimer (<0.60) mg/L FEU ABG pH (7.35-7.45) ABG pCO2 (35-45) mmHg ABG pO2 (83-108) mmHg ABG Total CO2 (19-24) mmol/L Chloride 109 H (98-107) mmol/L BUN 79 H (9-20) mg/dL Creatinine 2.04 H (0.66-1.25) mg/dL Glucose 220 H (74-99) mg/dL POC Glucose (mg/dL) 207 H (75-99) mg/dL Ferritin (22.0-322.0) ng/mL AST 93 H (17-59) U/L ALT 62 H (4-49) U/L Alkaline Phosphatase 174 H (38-126) U/L Triglycerides 1140 H (<150) mg/dL 08/02/20 08/02/20 08/02/20 Range/Units 07:00 08:18 09:58 WBC (3.8-10.6) k/uL Neutrophils # (Manual) (1.3-7.7) k/uL Lymphocytes # (Manual) (1.0-4.8) k/uL Metamyelocytes # (Man) (0) k/uL D-Dimer (<0.60) mg/L FEU ABG pH (7.35-7.45) ABG pCO2 (35-45) mmHg ABG pO2 (83-108) mmHg ABG Total CO2 (19-24) mmol/L Chloride (98-107) mmol/L BUN (9-20) mg/dL Creatinine (0.66-1.25) mg/dL Glucose (74-99) mg/dL POC Glucose (mg/dL) 190 H 190 H 169 H (75-99) mg/dL Ferritin (22.0-322.0) ng/mL AST (17-59) U/L ALT (4-49) U/L Alkaline Phosphatase (38-126) U/L Triglycerides (<150) mg/dL Microbiology - Last 24 Hours (Table) 07/31/20 03:15 Gram Stain - Final Sputum Sputum Culture - Final 07/28/20 14:10 Blood Culture - Preliminary Blood No Growth after 96 hours Assessment and Plan Assessment: Sepsis secondary to Acute Covid-19 pneumonia, present on admission, status post convalescent plasma Acute hypoxic respiratory failure, secondary to the above, ventilator dependent, requiring paralytics Hypovolemic hyponatremia,resolved. Acute renal failure secondary to Covid, sepsis Elevated LFTs secondary to coronal virus Elevated troponins, 0.050, 0.058, 0.045, suspect hypoxia induced ,related to coronavirus Morbid obesity, BMI 43.7 Restrictive lung disease secondary to the above Obstructive sleep apnea, uses CPAP outpatient CAD, history of cardiac stents COPD without acute exacerbation Diabetes mellitus type 2, hyperglycemic Hypertension BPH Plan: Continue on current medication regime ,monitoring and symptomatic treatment. Covid cocktail. ICU management as per qa software test engineer. High-dose Levemier insulin plus insulin drip, close monitoring of Accu-Cheks. A dose of Lasix IV push ordered. Potential paralytic holiday tomorrow as per pulmonary. Prognosis guarded given multiple complex medical issues. The impression and plan of care has been dictated as directed. : I performed a history and examination of this patient, discussed the same with the dictator. I agree with the dictator's note ,documented as a scribe. Any additional findings or plans will be noted.
[2020-08-02 12:21] LABS: Glucose,Whole Blood 147 mg/dL (75-99)
[2020-08-02 13:36] LABS: Glucose,Whole Blood 144 mg/dL (75-99)
--- NOTE | 2020-08-02 13:41 | CDI ---
Documentation Clarification Form Date: 08/02/2020 01:26:09 PM From: Gricelda Pennington RN, CCDS Admit Date: 07/28/2020 04:32:00 PM Patient Name: William Egan Visit Number: [id number] ATTENTION: The Clinical Documentation Specialists (CDI) and [facility] Coding Staff appreciate your assistance in clarifying documentation. Please respond to the clarification below the line at the bottom and electronically sign. The CDI & [facility] Coding staff will review the response and follow-up if needed. Please note: Queries are made part of the Legal Health Record. If you have any questions, please contact the author of this message via ITS. Dr. Newton Lloyd Your patient has the documented diagnosis of unspecified CHF in the PMH of the 07/28 H&P and Consult. Additional information regarding the type & acuity of CHF is requested. History/Risk Factors: CAD, CHF, COPD, DM, HTN, Lyme disease, Morbid obesity, Covid 19 pneumonia with acute hypoxic respiratory failure and TAL Clinical Indicators: 07/28 1330 Admission VS/Pulse OX: Temp 100.8, HR 77, RR 26, B/P 174/64, Spo2 76% RA 07/28 BNP: 765 07/31 Echocardiogram Results: EF 55-60%, moderate concentric LVH 07/28 Chest X Ray: "Progressive diffuse bilateral patchy infiltrate." Treatment: 08/02 Lasix 60 mg IVP x 1 dose 07/29 Toprol XL 25 mg Po Daily In your professional opinion, can you please clarify the [acuity and type] of CHF if known? [ ] Acute Diastolic Heart Failure (preserved EF) [ ] Chronic Diastolic Heart Failure (preserved EF) [ ] Acute on Chronic Diastolic Heart Failure (preserved EF) [ ] Other, please specify [ ] Unable to determine (Template Last Revised: May 2020) Acute on Chronic Diastolic Heart Failure (preserved EF) MTDD
[2020-08-02 14:51] VITALS: BMI 43.4
[2020-08-02 16:24] LABS: Glucose,Whole Blood 151 mg/dL (75-99)
[2020-08-02 18:15] LABS: Glucose,Whole Blood 139 mg/dL (75-99)
[2020-08-02 20:14] LABS: Hemoglobin A1C 12.7 % (4.0-6.0)
[2020-08-02] MEDS: ATORVASTATIN 40 MG TAB PO SCH (20:52)
[2020-08-02] MEDS: INSULIN DETEMIR (LEVEMIR) 100 UNIT/ML SYR SQ SCH (20:52)
[2020-08-02 23:09] LABS: Glucose,Whole Blood 273 mg/dL (75-99)
[2020-08-03] MEDS ORDERED: INSULIN ASPART (NovoLOG) 100 UNIT/ML VIAL SQ SCH
[2020-08-03 00:24] VITALS: RESP 32; TEMP 99.2
[2020-08-03 05:00] LABS: ABG Base Excess -2.6 mmol/L; ABG HCO3 24 mmol/L (21-25); ABG Oxygen Saturation 86.8 % (94-97); ABG PCO2 52 mmHg (35-45); ABG PH 7.27 (7.35-7.45); ABG TCO2 26 mmol/L (19-24)
[2020-08-03 05:12] LABS: Glucose,Whole Blood 261 mg/dL (75-99)
[2020-08-03 05:15] LABS: HCT 38.7 % (39.0-53.0); HGB 13.5 gm/dL (13.0-17.5); MCHC 34.8 g/dL (31.0-37.0); Mean Platelet Volume 7.7; Platelet Count 204 k/uL (150-450); RBC 4.34 m/uL (4.30-5.90); RDW 14.6 % (11.5-15.5); WBC 20.4 k/uL (3.8-10.6)
--- NOTE | 2020-08-03 05:31 | P.EN ---
Code blue note Activated at 5:05 am. Arrived on the scene shortly after. Discussed the case with the RN. The patient was admitted for COVID pneumonia with gradually worsening hypoxic respiratory failure. He was intubated a few days prior and was noted to have increasing oxygen requirements. He subsequently developed bradycardia and lost his pulse at which time CPR was initiated. He was given Epi IVP x 3, and sodium bicarb x 1. ROSC could not be achieved and the patient subsequently passed at 5:17 am. Primary team, management manager, and family were notified by the STEAM PIPE FITTER. Please refer to the code sheet for further details.
[2020-08-03 05:33] VITALS: BP 128/80; PULSE 75
[2020-08-03 05:43] LABS: Albumin 3.2 g/dL (3.5-5.0); C Reactive Protein 24.3 mg/L (<10.0); Calcium 9.1 mg/dL (8.4-10.2); Potassium 5.1 mmol/L (3.5-5.1); Total Bilirubin 0.8 mg/dL (0.2-1.3); Total Protein 6.1 g/dL (6.3-8.2)
[2020-08-03 05:55] LABS: ABG PO2 54 mmHg (83-108); Allen Test Performed? no
[2020-08-03 07:22] LABS: Band Neutrophils % 6 %; Lymphocytes # (M) 0.61 k/uL (1.0-4.8); Metamyelocytes # (M) 0.41 k/uL (0); Metamyelocytes % 2 %; Monocytes # (M) 0.61 k/uL (0-1.0); Myelocytes # (M) 0.41 k/uL (0); Myelocytes % 2 %; Neutrophils % (M) 86 %; Nucleated Red Blood Cells 0 /100 WBC (0-0); Total Cells Counted 200
[2020-08-03] MEDS ORDERED: FAMOTIDINE 20 MG TAB PO SCH (09:00)
[2020-08-03] MEDS ORDERED: Dulaglutide [Trulicity] 1.5 MG/0.5 ML SQ SCH (09:00)
[2020-08-03 10:20] LABS: Ferritin 1412.8 ng/mL (22.0-322.0)
--- NOTE | 2020-08-07 15:18 | CDI ---
Documentation Clarification Form Mortality Review Date: 08/07/2020 02:45:33 PM From: Gricelda Pennington RN, CCDS Admit Date: 07/28/2020 04:32:00 PM Patient Name: William Egan Visit Number: [id number] Discharge Date: 08/03/2020 01:32:00 PM ATTENTION: The Clinical Documentation Specialists (CDI) and [facility] Coding Staff appreciate your assistance in clarifying documentation. Please respond to the clarification below the line at the bottom and electronically sign. The CDI & [facility] Coding staff will review the response and follow-up if needed. Please note: Queries are made part of the Legal Health Record. If you have any questions, please contact the author of this message via ITS. Dr. Newton Lloyd Troponin leak, suspect oxygen supply and demand mismatch. Additional clarification regarding the clinical significance of the elevated troponins is requested. Patient History/Risk Factors: CAD, CHF, COPD, DM, HTN This admission: Hyperkalemia, acute hypoxic respiratory failure secondary to COVID 19, acute renal failure with sepsis and lactic acidosis POA Clinical Indicators: 07/28 H&P- 07/30 Attending Progress Notes: "Patient is a hyponatremic with acute renal failure Baseline creatinine within normal limits patient has elevated potassium lactic acidosis mildly elevated troponin with a normal BNP. Mildly elevated troponin secondary to hypoxemia will repeat troponins -Obesity with restrictive lung disease." 07/31-08/02 Attending Progress Notes: "Elevated troponins, 0.050, 0.058, 0.045, suspect hypoxia induced, related to coronavirus." 07/28-08/02 Pulmonary consult and Progress notes: "Troponin leak, suspect oxygen supply and demand mismatch." 07/28 Troponin: .05/.058/.045 07/28 EKG Results: NSR with right bundle branch block 07/31 Echo: EF 55-60%, mild tricuspid regurg No Cardiology Consult Treatment: ASA 81 mg PO QD Plavix 75 mg PO QD 07/29-07/30 Lovenox 40 mg SQ Daily 07/31-08/02 Lovenox 70 mg SQ Q 12 hrs. 08/02 Lasix 60 mg Toprol XL 25 mg Po QD Please clarify the etiology of the troponin leak, suspect oxygen supply and demand mismatch, if known: [ ] Type 2 NH due to Sepsis [ ] Type 2 NH due to Shock [ ] Type 2 NH due to acute respiratory failure [ ] Type 2 NH due to other (please specify ) [ ] Troponin Elevation has no clinical significance [ ] Unable to determine [ ] Other Condition, please specify (Template Last Revised: June 2020) Type 2 NH due to Sepsis MTDD
--- NOTE | 2020-08-07 15:29 | CDI ---
Documentation Clarification Form Mortality Review Date: 08/07/2020 03:27:41 PM From: Gricelda Pennington RN, CCDS Admit Date: 07/28/2020 04:32:00 PM Patient Name: William Egan Visit Number: [id number] Discharge Date: 08/03/2020 01:32:00 PM ATTENTION: The Clinical Documentation Specialists (CDI) and [facility] Coding Staff appreciate your assistance in clarifying documentation. Please respond to the clarification below the line at the bottom and electronically sign. The CDI & [facility] Coding staff will review the response and follow-up if needed. Please note: Queries are made part of the Legal Health Record. If you have any questions, please contact the author of this message via ITS. Dr. Newton Lloyd Your patient has the documented symptoms of fever, chills, nausea, vomiting and diarrhea. Additional clarification regarding the etiology/cause of this symptoms is requested. Patient history/risk factors: CAD, COPD, CHF, HTN, Lyme disease, Lap Band surgery Clinical Indicators: 07/29-07/30 Attending Progress notes: "63-year-old female came in with comments of shortness of breath and generalized body aches fever chills diarrhea nausea vomiting has been going on for 3 days found to have Covid 19" 07/28 Labs: Coronavirus (PCR) positive, AST 155, ALT 67, BUN 35, Creatinine 1.22, K+ 5.9, Sodium 129 Treatment: 0.9% NS @ 20 cc/hr. Medication: Pepcid 20 mg PO BID Please provide additional clarification regarding the etiology/cause of the nausea vomiting, and diarrhea. [ ] Viral enteritis due to Covid 19 [ ] Other, please specify [ ] Unable to determine (Template Last Revised: May 2020) Viral enteritis due to Covid 19 MTDD
== END 2020-08-03 13:32 | disposition expired | DRG 871 ==
LOC: EC 13:03 → 3SCARD 16:32 → 2SICU 07-31 02:17
PROVIDERS: ADMIT Family Medicine; ATTEND Family Medicine
PROC: 0BH17EZ Insertion of Endotracheal Airway into Trachea, Via Natural or Artificial Opening (ICD-10-PCS; principal; 2020-07-28)
PROC: 5A1945Z Respiratory Ventilation, 24-96 Consecutive Hours (ICD-10-PCS; principal; 2020-07-28)
PROC: XW033H5 Introduction of Tocilizumab into Peripheral Vein, Percutaneous Approach, New Technology Group 5 (ICD-10-PCS; 2020-07-28)
PROC: 5A09457 Assistance with Respiratory Ventilation, 24-96 Consecutive Hours, Continuous Positive Airway Pressure (ICD-10-PCS; 2020-07-28)
PROC: XW13325 Transfusion of Convalescent Plasma (Nonautologous) into Peripheral Vein, Percutaneous Approach, New Technology Group 5 (ICD-10-PCS; 2020-07-31)
PROC: 0D9670Z Drainage of Stomach with Drainage Device, Via Natural or Artificial Opening (ICD-10-PCS; 2020-07-31)
PROC: 3E0G76Z Introduction of Nutritional Substance into Upper GI, Via Natural or Artificial Opening (ICD-10-PCS; 2020-07-31)
PROC: 5A12012 Performance of Cardiac Output, Single, Manual (ICD-10-PCS; 2020-08-03)
PROC: 3E033XZ Introduction of Vasopressor into Peripheral Vein, Percutaneous Approach (ICD-10-PCS; 2020-08-03)
DX: A41.89 Other specified sepsis (principal); U07.1 COVID-19; J96.01 Acute respiratory failure with hypoxia; J12.82 Pneumonia due to coronavirus disease 2019; I50.33 Acute on chronic diastolic (congestive) heart failure; I21.A1 Myocardial infarction type 2; J44.0 Chronic obstructive pulmonary disease with (acute) lower respiratory infection; N17.9 Acute kidney failure, unspecified; E87.2 Acidosis; Z99.11 Dependence on respirator [ventilator] status; A08.39 Other viral enteritis; E87.1 Hypo-osmolality and hyponatremia; Z68.42 Body mass index [BMI] 45.0-49.9, adult; I11.0 Hypertensive heart disease with heart failure; R65.20 Severe sepsis without septic shock; I46.8 Cardiac arrest due to other underlying condition; E11.65 Type 2 diabetes mellitus with hyperglycemia; E66.01 Morbid (severe) obesity due to excess calories; Z79.4 Long term (current) use of insulin; R00.1 Bradycardia, unspecified; E86.1 Hypovolemia; E87.5 Hyperkalemia; D72.810 Lymphocytopenia; J98.4 Other disorders of lung; G47.33 Obstructive sleep apnea (adult) (pediatric); E78.5 Hyperlipidemia, unspecified; N40.0 Benign prostatic hyperplasia without lower urinary tract symptoms; I45.10 Unspecified right bundle-branch block; I25.10 Atherosclerotic heart disease of native coronary artery without angina pectoris; M10.9 Gout, unspecified; R74.01 Elevation of levels of liver transaminase levels; R19.7 Diarrhea, unspecified; Z79.82 Long term (current) use of aspirin; Z79.02 Long term (current) use of antithrombotics/antiplatelets; Z79.1 Long term (current) use of non-steroidal anti-inflammatories (NSAID); Z79.899 Other long term (current) drug therapy; Z95.5 Presence of coronary angioplasty implant and graft; Z87.442 Personal history of urinary calculi; Z86.19 Personal history of other infectious and parasitic diseases; Z88.1 Allergy status to other antibiotic agents; Z88.0 Allergy status to penicillin
CPT/HCPCS: 36415; 36600; 71045; 80048; 80053; 82150; 82728; 82805; 83036; 83605; 83615; 83690; 83735; 83880; 84075; 84450; 84460; 84478; 84484; 85025; 85379; 85384; 85610; 85730; 86140; 86850; 86900; 86901; 87040; 87070; 87205; 87635; 93005; 93306; 94002; 94003; 94640; 94660; 94760; 96372; 99291